=== PATIENT | female | born 2000 | race Two or more races ===

== ENCOUNTER 2025-09-05 10:51 | Outpatient (REF) | payer MEDICAID, SELFPAY ==
--- OUTSIDE RECORDS SUMMARY | 2025-09-05 09:00 | XMS_ITS | Encounter Summary ---
Author Organization [employer] Address [address] [facility] 7 [place] [address] Care Team Providers Care Web Database Developer Name Role Phone Maite Gorman CNP Primary Care Provider [phone] Reason for Referral * Consultation (Routine) - Pending Review Specialty Diagnoses / Procedures Referred By Mikaela stout Referred To Contact Allergy Diagnoses Encounter for allergy testing Maite Gorman CNP [address] [place] [address] Phone: tel: fax: Referral ID Status Reason Start Date Expiration Date Visits Requested Visits Authorized [id number] Pending Review Specialty Services Required 09/05/2026 1 1 Encounter Details Date Type Department Care Team (Late st Contact Info) Description 09/05/2025 9:00 AM EST Office Visit [facility] MED [facility] PEDS [address] [place] [address] Maite Gorman CNP [address] [place] [address] Encounter to establish care with new provider (Primary Dx); Class 1 obesity; Breast pain; Encounter for allergy testing Social History Tobacco Use Types Packs/Day Years Used Date Smoking Tobacco: Never Smokeless Tobacco: Never Tobacco Cessation:Counseling Given: Not Answered Depression Answer Date Recorded Patient Health Questionnaire-9 Score 2 09/05/2025 Patient Health Questionnaire-9 Score 2 09/05/2025 Last PHQ-9: Questionnaire Data Not on file 1 11/05/2024 Housing Stability Answer Date Recorded What is your housing situation today? I have frank maldonado 08/28/[address] you li ve. Do you have problems with any of the following? None of the above 08/28/2025 Food Insecurity Answer Date Recorded Within the past 12 months, y ou worried that your food would run out before you got money to buy more: Never True 08/28/2025 Within the past 12 months,th e food you bought just didn't last and you didn't have enough money to get more: Never True Transportation Answer Date Recorded In the past 12 months, has l ack of transportation kept you from medical appts, meetings, work or from getting things needed for daily living? No 08/28/2025 Utilities Answer Date Recorded In the past 12 months, has t he electric, gas, oil or water company threatened to shut off services in your home? No 08/28/2025 Depression Answer Date Recorded Patient Health Questionnaire-2 Score 1 09/05/2025 Internet Access Answer Date Recorded Internet Access Q1 Yes 08/28/2025 Internet Access Q2 Not on file 08/28/2025 Comments No Sex and Gender Information Value Date Recorded Sex Assigned at Female 08/10/2022 10:16 AM EDT Legal Sex Female 10:16 AM EDT Gender Identity Female 08/10/2022 10:16 AM EDT Sexual Orientation Straight 08/10/2022 10 :16 AM EDT documented as of this encounter Last Filed Vital Signs Vital Sign Reading Time Taken Comments Blood Pressure 126/72 09/05/2025 9:44 AM EST Pulse 80 09/05/2025 9:44 AM EST Temperature 36.7 C (98 F) 09/05/2025 9:44 AM EST Respiratory Rate 16 09/05/2025 9:44 AM EST Oxygen Saturation 98% 09/05/2025 9:44 AM EST Inhaled Oxygen Concentration - - Weight 78 kg (172 lb) 09/05/2025 9:44 AM EST Height 153.7 cm (5' 0.5 ) 09/05/2025 9:44 AM EST Body Mass Index 33.04 09/05/2025 9:44 AM EST documented in this encounter Functional Status * Over the past 2 weeks, how often have you been bothered by any of the following problems? Question Answer Date of Assessment Author Patient Health Questionnaire -2 Score 1 09/05/2025 10:36 AM Sa alec Buckley [place] * Little interest or pleasure in doing things Answer Date of Assessment Author Not at all 09/05/2025 10:36 AM Venita Ochoa MA * Feeling down, depressed, or hopeless Answer Date of Assessment Author Several days 09/05/2025 10:36 AM Venita Ochoa MA * Trouble falling or staying asleep, or sleeping too much Answer Date of Assessment Author Not at all 09/05/2025 10:36 AM Venita Ochoa MA * Feeling tired or having little energy Answer Date of Assessment Author Not at all 09/05/2025 10:36 AM Venita Ochoa MA * Poor appetite or overeating Answer Date of Assessment Author Not at all 09/05/2025 10:36 AM Venita Ochoa MA * Feeling bad about yourself - or that you are a failure or have let yourself or your family down Answer Date of Assessment Author Several days 09/05/2025 10:36 AM Venita Ochoa MA * Trouble concentrating on things, such as reading the newspaper or watching television Answer Date of Assessment Author Not at all 09/05/2025 10:36 AM Venita Ochoa MA * Moving or speaking so slowly that other people could have noticed? Or the opposite - being so fidgety or restless that you have been moving around a lot more than usual. Answer Date of Assessment Author Not at all 09/05/2025 10:36 AM Venita Ochoa MA * Thoughts that you would be better off or hurting yourself in some way Answer Date of Assessment Author Not at all 09/05/2025 10:36 AM Venita Ochoa MA * Patient Health Questionnaire-9 Score Answer Date of Assessment Author 2 09/05/2025 10:36 AM Venita Ochoa MA * Over the last 2 weeks, how often have you been bothered by any of the following problems? Question Answer Date of Assessment Author Feeling nervous, anxious, or on edge 0 09/05/2025 10:37 AM EST Sa alec Beck MA Not being able to stop or control worrying 0 09/05/2025 10:37 AM EST Sa alec Beck MA Worrying too much about different things 1 09/05/2025 10:37 AM Sa alec Buckley MA Trouble relaxing 1 09/05/2025 10:37 AM Venita Buckley MA Being so restless that it is hard to sit still 0 09/05/2025 10:37 AM EST Sa alec Beck MA Becoming easily annoyed or irritable 0 09/05/2025 10:37 AM EST Sa alec Beck MA Feeling afraid as if somethi ng awful might happen 1 09/05/2025 10:37 AM Sa alec Buckley MA CANDACE-7 Total Score 3 09/05/2025 10:37 AM Venita Buckley MA documented as of this encounter Progress Notes * Maite Gorman CNP - 09/05/2025 9:00 AM EST Subjective: Rita Le is a 25 y.o. female with PMH of Obesity who presents to the office for a new patient visit. Previous PCP unknown. Interim history: Pt had uncomplicated with history of chlamydia during 03/2025- resolved, she was[facility] at [facility] transferred from [facility] for PPROM 08/12/25 at 33.6 weeks gestation. Per provider note plan was to proceed with expectant management until 34+ weeks gestation as long as maternaland status remain reassuring. Pt then gave vaginally and was dicharged home with s/o, baby to remain in NICU as of 08/16/25. Reports she is doing well, baby is back home and is healthy. She has PP f/u scheduled in 2 weeks [facility]. Current concerns: Plugged milk ducts in L axillary region. Reports they are tender. Reports milk production is adequate at this time, reports less breast milk production in L breast. Would like allergy testing. Problem List[1] Surgical History[2] Family History[3] Social History Living situation: has secure housing Employment/Education: not reported Diet/exercise: Substance use: denies Sexual activity: not at this time Contraception: none Mental health: Denies any mental health concerns including signs/symptoms of depression and anxiety. No LMP recorded. (Menstrual status: Other). Allergies[4] Review of Systems Vitals: 09/05/25 0944 BP: 126/72 BP Location: Left arm Patient Position: Sitting BP Cuff Size: Adult Pulse: 80 Resp: 16 Temp: 98 ??F (36.7 ??C) TempSrc: Oral SpO2: 98% Weight: 172 lb (78 kg) Height: 5' 0.5 (1.537 m) Physical Exam Constitutional: Appearance: Normal appearance. She is normal weight. Cardiovascular: Rate and Rhythm: Normal rate and regular rhythm. Pulses: Normal pulses. Heart sounds: Normal heart sounds. No murmur heard. No friction rub. No gallop. Pulmonary: Effort: Pulmonary effort is normal. No respiratory distress. Breath sounds: Normal breath sounds. No wheezing or rales. Chest: Breasts: Right: Normal. No swelling, bleeding, inverted nipple or mass. Left: Normal. No swelling, bleeding, inverted nipple or mass. Comments: 3 firm well circumscribed, mobile, tender nodules in L axillary region. Prominent nodule in the center of L axillary about 3-4cm in size, no surrounding erythema, no fluid collection, no swelling. Neurological: General: No focal deficit present. Mental Status: She is alert and oriented to person, place, and time. Psychiatric: Mood and Affect: Mood normal. Behavior: Behavior normal. Thought Content: Thought content normal. Judgment: Judgment normal. Assessment & Plan Encounter to establish care with new provider 25 y/o female without any chronic conditions presents today to establish care. We addressed medical history and current medications. Routine Screening and Health Maintenance Optometry: Yes Dentist: Yes Lab Review: orders written for new lab studies as appropriate; see orders Routine Cancer Screening Cervical CA: Completed 03/2025- NILM Orders: CBC auto differential Basic Metabolic Panel Hepatic Function Panel Class 1 obesity Pt has strong family history of T2DM I will include A1c level in blood work. Dietary Recommendations: Fruits, vegetables, whole grains, protein foods, and fat-free or low-fat dairy products are healthychoices. Eat different types of protein foods in your diet. This can include seafood, lean meats, poultry, beans, peas, lentils, nuts, seeds, soy products, and eggs. Limit foods and beverages higher in added sugars, saturated fat, and sodium. Exercise Recommendations: At least 150 minutes of moderate-intensity physical activity per week, or an equivalent combinationof moderate- and vigorous-intensity activity Orders: CBC auto differential Basic Metabolic Panel Hepatic Function Panel Hemoglobin A1c; Future Breast pain Base on presentation and history, likely plugged milk ducts Management typically involves measures to improve milk drainage, such as frequent , breast massage, and manual expression. If symptoms persist or a mass remains after treatment, further evaluation is warranted to rule out other causes, including infection or malignancy Will f/u with pt in 2 weeks or sooner based on progression of symptoms. Orders: ibuprofen 600 MG tablet; Take 1 tablet (600 mg) by mouth every 8 (eight) hours if needed for mild pain for up to 10 days. Encounter for allergy testing Referred to allergy for patch testing Orders: Referral to Allergy; Future Current Medications[5] Immunization History Administered Date(s) Administered DTaP 2001, 2001, 2001, 01/09/2002, 09/10/2005 HPV, Quadrivalent 11/21/2010, 02/06/2011, 11/17/2011 Hep A, ped/adol, 2 dose 01/29/2015 Hep B, Adolescent or Pediatric 2001, 2001, 01/13/2002 Hib (HbOC) 2001, 2001, 01/13/2002 IPV 2001, 2001, 04/10/2002, 09/10/2005 Influenza, Split (incl. purified surface antigen) 11/14/2012 MMR 06/30/2002, 09/10/2005, 08/16/2025 Meningococcal MCV4P [id number]-135 11/14/2012 Pneumococcal Conjugate PCV 7 2001, 2001, 01/13/2002 Tdap 11/14/2012, 07/11/2025 Varicella 06/30/2002, 01/23/2014 Follow up in about 2 weeks (around 09/19/2025) for f/u armpit mass. [1] Patient Active Problem List Diagnosis Acne Back pain Chlamydia infection during Class 1 obesity Elevated glucose tolerance test Encounter for supervision of normal first in first trimester premature rupture of membranes (PPROM) with unknown onset of labor PROM (premature rupture of membranes) Rubella non-immune status, antepartum Urinary tract infection in mother during first trimester of [2] Past Surgical History: Procedure Laterality Date BREAST RECONSTRUCTION 2020 [3] Family History Problem Relation Name Age of Onset Diabetes Father [4] No Known Allergies [5] Current Outpatient Medications Medication Sig Dispense Refill acetaminophen (Tylenol) 500 MG tablet TAKE 2 TABLETS BY MOUTH EVERY 6 HOURS FOR PAIN aspirin 81 MG EC tablet Take 81 mg by mouth Once per day. docusate sodium (Colace) 100 MG capsule Take 100 mg by mouth. ergocalciferol (Vitamin D-2) 1.25 MG (16528 UT) capsule take 1 capsule by oral route every week x 15 weeks Ferrous Sulfate (IRON PO) Take 1 tablet by mouth Once per day. ibuprofen 800 MG tablet Take 800 mg by mouth. multivitamin () 27-0.8 MG tablet Take 1 tablet by mouth Once per day. ibuprofen 600 MG tablet Take 1 tablet (600 mg) by mouth every 8 (eight) hours if needed for mild pain for up to 10 days. 30 tablet 0 No current facility-administered medications for this visit. documented in this encounter Miscellaneous Notes * Assessment & Plan Note - Maite Gorman CNP - 09/05/2025 9:00 AM EST Associated Problem(s): Class 1 obesity Pt has strong family history of T2DM I will include A1c level in blood work. Dietary Recommendations: Fruits, vegetables, whole grains, protein foods, and fat-free or low-fat dairy products are healthychoices. Eat different types of protein foods in your diet. This can include seafood, lean meats, poultry, beans, peas, lentils, nuts, seeds, soy products, and eggs. Limit foods and beverages higher in added sugars, saturated fat, and sodium. Exercise Recommendations: At least 150 minutes of moderate-intensity physical activity per week, or an equivalent combinationof moderate- and vigorous-intensity activity Orders: CBC auto differential Basic Metabolic Panel Hepatic Function Panel Hemoglobin A1c; Future documented in this encounter Plan of Treatment Upcoming Encounters Date Type Department Care Team (Late st Contact Info) Description 09/26/2025 2:30 PM EST Office Visit [facility] MED & PEDS [address] [place] [address] Maite Gorman CNP [address] [place] [address] Scheduled Orders Name Type Priority Associated Diagnoses Orde r Schedule CBC auto differential Lab Routine Encounter to establish care with new provider Class 1 obesity Ordered: 09/05/2025 Basic Metabolic Panel Lab Routine Encounter to establish care with new provider Class 1 obesity Ordered: 09/05/2025 Hepatic Function Panel Lab Routine Encounter to establish care with new provider Class 1 obesity Ordered: 09/05/2025 Hemoglobin A1c Lab Routine Class 1 obesity Expected: 09/05/2025 (Approximate), Expires: 09/05/2026 Scheduled Referrals Name Type Priority Associated Diagnoses Orde r Schedule Referral to Allergy Outpatient Referral Routine Encounter for allergy testing Expected: 09/05/2025 (Approximate), Expires: 09/05/2026 documented as of this encounter Visit Diagnoses Diagnosis Encounter to establish care with new provider- Primary Class 1 obesity Breast pain Mastodynia Encounter for allergy testing Diagnostic skin and sensitization tests documented in this encounter Additional Health Concerns Assessment Noted Time PHQ-9 Depression Total Score: 2 09/05/20 10:36 AM EST documented as of this encounter Care Teams Web Database Developer Relationship Specialty Start Date End Date Maite Gorman CNP [address] [place] [address] PCP - General Family Medicine 09/05/25 documented as of this encounter
--- OUTSIDE RECORDS SUMMARY | 2025-09-05 13:20 | XMS_ITS | Encounter Summary ---
Author Organization [employer] Address [address] [place] [address] [address] [address] Care Team Providers Care It Applications Manager Name Role Phone Anabela Aguirre MD Primary Care Provider [phone] Maite Gorman CNP Primary Care Provider [phone] Encounter Details Date Type Department Care Team (Late Contact Info) Description 12/16/2022 Telephone Family Medicine [address] [place] [address] Anabela Aguirre MD [address] [place] [address] Social History Tobacco Use Types Packs/Day Years Used Date Smoking Tobacco: Never Assessed Comments Unknown Sex and Gender Information Value Date Recorded Sex Assigned at Female 08/10/2022 10:16 AM EDT Legal Sex Female 10:16 AM EDT Gender Identity Female 08/10/2022 10:16 AM EDT Sexual Orientation Straight 08/10/2022 10 :16 AM EDT documented as of this encounter Plan of Treatment Upcoming Encounters Date Type Department Care Team (Late Contact Info) Description 09/26/2025 2:30 PM EST Office Visit [facility] MED & PEDS [address] [place] [address] Maite Gorman CNP [address] [place] [address] documented as of this encounter Visit Diagnoses Not on filedocumented in this encounter Care Teams It Applications Manager Relationship Specialty Start Date End Date Anabela Aguirre MD [address] [place] [address] PCP - General Family Medicine 10/11/18 06/19/24 Maite Gorman CNP [address] [place] [id number] PCP - General Family Medicine 09/05/25 documented as of this encounter
--- OUTSIDE RECORDS SUMMARY | 2025-09-05 13:20 | XMS_ITS | Encounter Summary ---
Author Organization [employer] Address [address] [place] [address] [address] [place] [address] Care Team Providers Care Nurse Infection Control Name Role Phone Anabela Aguirre MD Primary Care Provider [phone] Maite Gorman CNP Primary Care Provider [phone] Reason for Visit * Reason Onset Date Comments Appointment Request 11/26/2023 Encounter Details Date Type Department Care Team ([facility] Contact Info) Description 11/26/2023 Telephone [facility] [address] [place], [place] [phone] Anabela Aguirre MD [address] [place], [place] [phone] Appointment Request Social History Tobacco Use Types Packs/Day Years Used Date Smoking Tobacco: Never Assessed Comments Unknown Sex and Gender Information Value Date Recorded Sex Assigned at Female 08/10/2022 10:16 AM EDT Legal Sex Female 10:16 AM EDT Gender Identity Female 08/10/2022 10:16 AM EDT Sexual Orientation Straight 08/10/2022 10 :16 AM EDT documented as of this encounter Miscellaneous Notes * Telephone Encounter - Elver Vergara - 11/26/2023 8:29 AM EST Tc from patient calling to schedule a PE appt with PCP however there was no availability at the moment documented in this encounter Plan of Treatment Upcoming Encounters Date Type Department Care Team ([facility] Contact Info) Description 09/26/2025 2:30 PM EST Office [facility] [address] [place], [place] [phone] Maite Gorman CNP [address] [place] [address] documented as of this encounter Visit Diagnoses Not on filedocumented in this encounter Care Teams Nurse Infection Control Relationship Specialty Start Date End Date Anabela Aguirre MD [address] [place] [address] PCP - General Family Medicine 10/11/18 06/19/24 Maite Gorman CNP [address] [place] [address] PCP - General Family Medicine 09/05/25 documented as of this encounter
--- OUTSIDE RECORDS SUMMARY | 2025-09-05 13:21 | XMS_ITS | Clinical Summary ---
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 30 tablet 6 02/28/2025 Active vitamin iron fum-folic acid 27-0.8 mg per tablet Take 1 tablet by mouth 1 (one) time each day. 90 tablet 3 05/31/2025 05/31/20 26 Active acetaminophen (TYLENOL) 500 mg tablet TAKE 2 TABLETS BY MOUTH EVERY 6 HOURS FOR PAIN 07/15/2025 Active Active Problems Problem Noted Date Diagnosed Date PROM (premature rupture of membranes) 08/12/2025 Elevated glucose tolerance test 07/04/2025 Overview (07/04/2025): Normal 3hr Chlamydia infection during 05/09/2025 Overview (08/12/2025): 03/14/2025- Positive Chlamydia at IP- pt and partner completed treatment WILLAM 04/12/2025- Negative Repeat at 36 weeks- completed today with PPROM Rubella non-immune status, antepartum 03/06/2025 Overview (03/06/2025): Vaccinate PP Urinary tract infection in m other during first trimester of 03/06/2025 Overview (06/13/2025): 03/06/2025 E coli UTI- treated Macrobid 05/09- WILLAM ordered- no growth Encounter for supervision of normal first in first trimester 02/28/2025 Overview (07/11/2025): 1. [place] site: [facility] ([facility]): [address] [place] [phone] ([phone]) 2. Delivery site: [facility] 3. Mobile Mommas: 4. Dating criteria: LMP 5. Blood type: A+ 6. Genetic screening: Date: Result: Panorama: Ordered low risk male Horizon: Ordered neg Nuchal: WNL Survey: WNL MSAFP: Neg 6. GBS: Date: 7. FOB name: Keila Mcfarland 02-03-1999, 8. Plans A. Epidural or other pain management - B. Labor support identified - C. Tdap - Date: 07/11 Flu - Date: D. Breast or Bottle feed: E. Baby's name - F. Circumcision - 9. Hospital Course: Resolved Problems Problem Noted Date Diagnosed Date Resolved Date Vaginal bleeding in pregnanc y, third trimester 08/12/2025 08/12/2025 Overview (08/12/2025): 07/15- Light vaginal spotting with whipping at 29.6 weeks, pt called triage and US order was placed. U/S- 07/17- Placenta not low lying or previa. Bleeding stopped the next day and denies re-occurring. Back pain 02/15/2025 02/28/2025 Encounters Date Type Department Care Team Description 08/15/2025 Telephone Obstetrics and Gynecology - [address] [phone] Wendy Brown RN 08/12/2025 8:16 AM EST - 08/12/2025 10:37 AM EST Hospital Encounter [facility] - Maternity [address] [place] [address] Shahid Davidson MD Discharge Disposition: Another Health Care Institution Not Defined 08/08/2025 1:00 PM EDT Routine Obstetrics & Gynecology [address] [phone] Kat Albright CNM Encounter for supervision of normal first in third trimester (Primary Dx); 33 weeks gestation of 07/26/2025 [address] [phone] Regina Whyte CNM 07/25/2025 1:15 PM EDT Routine Obstetrics & Gynecology [address] [address] Kat Albright CNM Encounter for supervision of normal first in third trimester (Primary Dx); Bilateral sciatica; 31 weeks gestation of 07/18/2025 Results Follow-Up [address] [phone] Latoya Ni CNM 07/17/2025 11:00 AM EDT Ancillary Procedure Maternal Medicine - [address] [phone] Vaginal bleeding in , third trimester; 30 weeks gestation of ; Obesity complicating in third trimester 07/17/2025 [address] [phone] Regina Whyte CNM 07/15/[address] [phone] Latoya Ni CNM 07/11/2025 1:00 PM EDT Routine Obstetrics & [address] [phone] Kat Albright CNM Encounter for supervision of normal first in third trimester (Primary Dx); Acute right-sided low back pain with right-sided sciatica; 29 weeks gestation of 06/13/2025 1:45 PM EDT Routine Obstetrics & Gynecology - [address] [address] Kat Albright CNM Encounter for supervision of normal first in second trimester (Primary Dx); Encounter for screening, unspecified; Screen for STD (sexually transmitted disease); 25 weeks gestation of from Last 3 Months Immunizations Immunization Administration Dates Next Due Tdap Tetanus diptheria acell ular pertussis (Boostrix; Adacel) 7yo and older 07/11/2025 07/11/2035 Surgical History Surgery Date Site/Laterality Comments BREAST REDUCTION 01/09/2021 Medical History Medical History Date Comments Childhood asthma Family History Medical History Relation Name Comments Diabetes Father Autism Half-Brother 1 x1 maternal half brother No Known Problems Half-Brother 2 x2 2 patern al half brothers No Known Problems Half-Brother 3 x1 maternal half brother No Known Problems Half-Sister x2 Thyroid disease Mother Relation Name Status Comments Father Alive Half-Brother 1 x1 Alive Half-Brother 2 x2 Alive Half-Brother 3 x1 Alive Half-Sister x2 Alive Maternal Grandfather Alive Maternal Grandmother Alive Mother Alive Paternal Grandfather Alive Paternal Grandmother Alive Social History Tobacco Use Types Packs/Day Years Used Date Smoking Tobacco: Never Smokeless Tobacco: Never Tobacco Cessation:Counseling Given: Not Answered Alcohol Use Standard Drinks/Week Comments Not Currently 0 (1 standard drink = 0.6 oz pur e alcohol) Comments No Sex and Gender Information Value Date Recorded Sex Assigned at Not on file Legal Sex Female 12:15 AM EST Gender Identity Not on file Sexual Orientation Not on file Occupation Industry Job Start Date Job End Date [employer] Not on file Not on file Not on file Obstetrics History Para Term AB IAB SAB Ectopic Multiple Livin g Live Births 1 1 0 1 0 0 1 1 Date Outcome GA Total Labor Labor/2nd/3rd Weight Sex Type Anes PTL Patsy A1 A5 Name Clin 025 34w 1d 2732 g (96.4 oz) M Y Living Delivery Location:[facility] Summary Episode Dates Number of Fetuses Estimated Date of Delivery 02/28/2025 - Present (09/05/2025) 1 09/24/2025 (set by Bhavna Alvarez RN on 02/28/2025 based on Last Menstrual Period on 12/18/2024 (Within Days)) Dating Summary Based On MAXIMILIANO GA Diff Last Menstrual Period on 12/18/2024 (Within Days ) 09/24/2025 Working Ultrasound on 02/23/2025 09/27/2025 -3d GA:9w1d Alternate MAXIMILIANO Entry 09/24/2025 Same Comment:Date entered prior t o episode creation Vitals Pregravid Weight Height TWG (As of 09/05/2025) Pregrav id BMI 72.1 kg (159 lb) 1.575 m (62 ) 11.5 kg (25 lb 6.4 oz) 29.07 Date GA Fund Present FHR Mvmt BP Weight Edema Alb Glu Ket Dil/ Eff/Sta 33w6d Inpatient data not displayed here. See encounter summary. Notes Progress Notes - Hospital En counter - 08/12/2025 - GA:33w6d 08/12/2025 - 33w6d - Kat Albright CNM Obstetrical Triage Note Subjective History of Present Maddie Alcazar is a 25 y.o. gravid, female. Patient's last menstrual period was 12/18/2024 (within days). with an Estimated Date of Delivery of 09/24/2025, by Ultrasound, who is now 33w6d gestation. The patient's blood type is A Positive. She presented to the [facility] triage accompanied by her partner, complaining of feeling a large gush of clear fluid around 0700am. She denies odor. Fluid has continued to leak since. She denies fever or chills. She denies CP, SOB, ESCOBAR, visual changes. Denies drugs, alcohol or smoking. She reports good movement, no vaginal bleeding or contractions. Taking PNV and baby ASA. Her is complicated by UTI in early preg, rubella non immune, elevated GTT with a normal 3hr GTT, and Chlamydia in early with a negative WILLAM and light vaginal bleeding at 29.6 weeks- placenta not low lying or previa. ROS- Per HPI Reason for Triage Observation: Rupture of Membranes Triage Course: Came in to triage, SSE- exam completed and cultures obtained to rule out infections and assessment of PPROM Objective Recent Vital Signs: BP 131/83 Pulse 109 Temp 36.1 C (97 F) (Temporal) Resp 16 BP & Temp Min/Max Last 24 Hours: BP Min: 131/83 Min taken time: 08/12/25819 Max: 131/83 Max taken time: 08/12/25819 Temp Av.1 C (97 F) Min: 36.1 C (97 F) Min taken time: 08/12/25819 Max: 36.1 C (97 F) Max taken time: 08/12/25819 Physical Examination: GENERAL: Examination reveals a well developed, well nourished, gravid female in no acute distress. She is alert and cooperative. LUNGS: clear to auscultation bilaterally HEART: regular rate and rhythm, S1, S2 normal, no murmur, click, rub or gallop ABDOMEN: soft, gravid, nontender, nondistended, no abnormal masses, no epigastric pain FHR is 150, Mod variability with +Accels, and no Decels, a Cat 1 tracing. VAGINA: normal appearing vagina with normal color and no lesions noted. Positive for Lg amount Pooling of clear fluid- no odor, Positive Nitrazine and Positive Ferning CERVIX: Closed cm dilated, 70 % effaced, -3 station, Cephalic by Vishal's MEMBRANES are ruptured. Contractions 3/10 minutes per toco- none felt by pt EXTREMITIES: no redness or tenderness in the calves or thighs, no edema SKIN: normal coloration and turgor, no rashes NEUROLOGICAL: alert, oriented, normal speech, no focal findings or movement disorder noted PSYCHOLOGICAL: awake and alert; oriented to person, place, and time Lab Review: Labs in chart were reviewed. Bedside US performed by - Cephalic presentation confirmed, LENCHO- 15 Assessment at 33.6 weeks gestation, reassuring maternal and status Triage Testing revealed- positive PPROM Category 1 tracing History of Chlamydia in Plan Reviewed findings with pt of PPROM and need to transfer to tertiary hospital Cultures obtained to rule out infections, per protocol Reviewed risk of delivery and lung maturity Betamethasone 12mg IM x1 dose given at Triage- reviewed R/B with pt Ampicillin and Azythromycin started per protocol Will continue to monitor, IV Fluids started Consulted with Dr. Carbajal- Transfer process started to [facility] Kat Albright CNM I reviewed patients record and assisted with her evaluation. I agree with the above note. Patient is being transferred to [facility]. I greatly appreciate [facility] and Dr Casey for accepting the transfer and assuming care of Ms Alcazar. --Pending work up from today, GCCT and GBS. --CBC and Type of screen not completed given patient is being transferred Shahid Davidson MD Progress Notes - Routine Pre tree - 08/08/2025 - GA:33w2d 08/08/2025 - 33w2d - Kat Albright CNM OB Visit: Vitals BP: 122/77 (P 86) Weight: 83.6 kg (184 lb 6.4 oz) Assessment Heart Rate: 155 Fundal Height (cm): 33 cm Movement: Present Presentation: Cephalic Vaginal Drainage Leaking Fluid: No 25 y.o. old female at 33w2d. Doing well. Taking PNV and ASA. Appropriate FM. No LOF/VB/cramping. Her only new concern is none. 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 Also has to drive far to get to work. She has preg cradle that helps some and awaiting for chiropractor appt. Comfort meadures reviewed and FMLA papers given. She spoke to and states was told this should not interfere with her time with baby bonding after delivery. Otherwise healthy . Her BP is reviewed and is Normal. Signs and symptoms of labor reviewed including reasons to call triage. The patient does not require anesthesia consult. Problem List reviewed and updated. RTO 2 weeks. Kat Albright CNM on 08/08/2025 at 1:40 PM EDT 08/08/2025 - 33w2d - Baron Son MA Ob f/up Progress Notes - Routine Pre - 07/25/2025 - GA:31w2d 07/25/2025 - 31w2d - Kat Albright CNM OB Visit: Vitals BP: 129/81 (P 109) Weight: 82.7 kg (182 lb 4.8 oz) Assessment Heart Rate: 150 Fundal Height (cm): 32 cm Movement: Present Presentation: Cephalic Vaginal Drainage Leaking Fluid: No 25 y.o. old female at 31w2d. Doing well. Appropriate FM. No LOF/VB/cramping. Had light spotting with whipping 1 week ago, she had an US to verify location of placenta- placenta not low lying or previa. Bleeding stopped the next day and has not re-occured. Growth US was also done on 07/17 baby was 67%tile and normal fluid. Taking PNV and ASA. Her only new concern is sciatica pain, has preg craddle- helping some. Comfort measures reviewed and chiropractor referral offered and accepted. Thinking about getting FMLA to leave early for this reason, encouraged to educate on allowed time because this may shorten her time with baby. Otherwise healthy . She had 28 week labs, reviewed with pt today, 1hr GTT elevated, normal 3hr GTT. Her BP is reviewed and is Normal. Signs and symptoms of labor reviewed including reasons to call triage. The patient does not require anesthesia consult. Problem List reviewed and updated. RTO 2 weeks. Kat Albright CNM on 07/25/2025 at 1:53 PM EDT 07/25/2025 - 31w2d - Baron Son MA Ob f/up Progress Notes - Routine Pre - 07/11/2025 - GA:29w2d 07/11/2025 - 2d - Baron Son [place] The patient acknowledges that they will be receiving the Tdap (Brand Name Boostrix or Adacel) (Tetanus/Diptheria/Pertussis) vaccine: YES Immunization tab reviewed: It has been at least 9 years since last Tdap vaccine administration. If less than 9 years, provider notified. YES Exception: patients should receive a Tdap with each , preferably during the 3rd trimester. Denies allergy or reaction to previous Tetanus, Diptheria or pertussis vaccination: YES Denies history of Guillain [place] Syndrome.or any type of seizure disorder. YES Patient made aware that they may experience pain/swelling at the site after receiving a Tetanus or Diptheria vaccine. YES Acknowledges reviewing the VIS dated 05/16/2021 (copy made available): YES Denies moderate or severe illness or fever of >100 degrees F: YES Patient agrees to wait in the office for 20 minutes after receiving the injection: YES Tdap vaccine administered IM. See Imm/Inj tab 07/11/2025 - w2d - Kat Albright CNM OB Visit: Vitals BP: 121/77 (p 78) Weight: 81.6 kg (179 lb 14.4 oz) Assessment Heart Rate: 150 Fundal Height (cm): 29 cm Movement: Present Vaginal Drainage Leaking Fluid: No 25 y.o. old female at 29w2d. Doing well. Appropriate FM. No LOF/VB/contractions. Taking PNV and ASA. Her only new concern is right low back/hip pain- radiates down leg, worst with movements- comfort measures reviewed, hydration, stretching, and preg craddle Rx given. Call if no improvement. Otherwise healthy . Her BP is reviewed and is Normal. Tdap was offered and accepted. This patient has not received Tdap during this . TDAP given today. 28 week labs reviewed, elevated 1hr GTT, normal 3hr GTT. This patient has received syphilis testing during this . This patient does not require a urine drug screen. Desires Tubal: NA. Signs and symptoms of labor reviewed including reasons to call triage. Problem List reviewed and updated. RTO 2 weeks. Kat Albright CNM on 07/11/2025 at 1:49 PM EDT 07/11/2025 - 29w2d - Baron Son [place] Pt here for ob f/up 1hr gtt done 06/25/25: 153 3hr gtt done 07/03/25: normal EPDS: 8 Routine from 07/11/2025 in Obstetrics & Gynecology [facility] with Kat Albright CNM 07/11/2025 1311 Last Filed Value [place] Depression Scale: In the Past 7 Days I have been able to laugh and see the funny side of things. As much as I always could As much as I always could I have looked forward with enjoyment to things. As much as I ever did As much as I ever did I have blamed myself unnecessarily when things went wrong. Yes, some of the time Yes, some of the time I have been anxious or worried for no good reason. Yes, sometimes Yes, sometimes I have felt scared or panicky for no good reason. No, not much No, not much Things have been getting on top of me. No, most of the time I have coped quite well No, most of the time I have coped quite well I have been so unhappy that I have had difficulty sleeping. Not at all Not at all I have felt sad or miserable. Not very often Not very often I have been so unhappy that I have been crying. Only occasionally Only occasionally The thought of harming myself has occurred to me. Never Never [place] Depression Scale Total 8 8 Progress Notes - Routine Pre - 06/13/2025 - GA:25w2d 06/13/2025 - - Kat Albright CNM OB Visit: Vitals BP: 125/78 (p 106) Weight: 80.5 kg (177 lb 6.4 oz) Assessment Heart Rate: 145 Fundal Height (cm): 25 cm Movement: Present Vaginal Drainage Leaking Fluid: No 24 y.o. old female at 25w2d. Doing well. Good FM. No LOF/VB/cramping. Her only new concern is None. Taking PNV and ASA. Normal recent FAS. Otherwise healthy . Her BP is reviewed and is Normal. She does not require a urine drug screen. 28 week labs ordered. Signs and symptoms of labor reviewed including reasons to call triage. Problem List reviewed and updated. RTO 4 weeks. Patient is planning to breast feed. Benefits of breast feeding were discussed at this visit. Kat Albright CNM on 06/13/2025 at 2:42 PM EDT 06/13/2025 - - Baron Son MA Ob f/up Progress Notes - Routine Pre tree - 05/09/2025 - GA:20w2d 05/09/2025 - - Kat Albright CNM OB Visit: Vitals BP: 94/56 (p 96) Weight: 76.3 kg (168 lb 3.2 oz) Assessment Heart Rate: 150 Fundal Height (cm): 20 cm Movement: Present Vaginal Drainage Leaking Fluid: No 24 y.o. old female at 20w2d. Doing well. Pos FM. No LOF/VB/cramping. Her only new concern is none. Taking PNV and ASA. Otherwise healthy . Her BP is reviewed and is Normal. Aneuploidy screening reviewed; it is Normal. MSAFP up to date and normal. She has FAS today. She finished Abx for UTI, will do WILLAM today. She does not require a urine drug screen. Signs and symptoms of labor reviewed including reasons to call triage. Problem List reviewed and updated. RTO 4 weeks. Kat Albright CNM on 05/09/2025 at 11:00 AM EDT 05/09/2025 - w2d Baron Rutherford MA Ob f/up Progress Notes - Routine Pre - 04/12/2025 - GA:16w3d 04/12/2025 - wdinesh - Riana Figueroa CNM OB Visit: Vitals BP: 109/79 (P 68) Weight: 74.1 kg (163 lb 6.4 oz) Assessment Heart Rate: 150 Fundal Height (cm): 16 cm Movement: Present Vaginal Drainage Leaking Fluid: No 24 y.o. old female at 16w3d. Doing well. + fluttering FM. No LOF/VB/cramping. Her only new concern is none. She and partner completed tx for Chlamydia. She admits to having sex w/o condom since treatment. Otherwise healthy . Her BP is reviewed and is Normal. Aneuploidy screening reviewed; it is Normal. MSAFP ordered. She does not require a urine drug screen. Rev'd normal second trimester changes, comfort measures including reasons to call triage. Problem List reviewed and updated. RTO 4 wks or sooner prn,. Orders Placed This Encounter Procedures Chlamydia trachomatis and Neisseria gonorrhoeae molecular study Alpha fetoprotein, maternal Riana iFgueroa CNM on 04/12/2025 at 9:17 AM EDT 04/12/2025 - 16josé antonio - Baron Son MA Ob f/up w/ WILLAM Pos Ch on 03/14/25 Progress Notes - Initial Pre - 03/14/2025 - GA:12w2d 03/14/2025 - 12w2d - Riana Figueroa CNM OB 12 week appt IP: S: Maddie is a 24 y.o. year old here for IP visit with her patient and boyfriend. Her is unplanned. She and the father of the baby are surprised/ happy. Taking PNV. Patient's last menstrual period was 12/18/2024 (within days). She is uncertain of her LMP with regular cycles. is currently dated by LMP confirmed by 1st trimester ultrasound. She complains of nausea and breast tenderness. She denies vaginal bleeding or cramping. Flu vaccine: not indicated at today's visit Completed abx yesterday for E-coli UTI O: Blood pressure 111/72, weight 73.3 kg (161 lb 8 oz), last menstrual period 12/18/2024, not currently . See OB physical and labs. Vitals BP: 111/72 (P 87) Weight: 73.3 kg (161 lb 8 oz) No results found for: ABORH Lab Results Component Value Date RH Positive 03/02/2025 Horizon Neg Panorama low risk A: at 12w2d weeks gestation. 1. 12 weeks gestation of 2. Encounter for supervision of normal first in first trimester 3. Screening for cervical cancer 4. Screen for STD (sexually transmitted disease) 5. Screening for depression 6. Urinary tract infection in mother during first trimester of 7. Rubella non-immune status, antepartum P: Pap obtained today. Genprobe obtained today/ added to PAP collection Oriented to THoNE MG and anticipated course. Discussed collaborative practice and [facility] delivery. Reviewed healthy eating and normal weight gain in . Encouraged patient to push PO fluids. Counseled about warning signs of the first trimester and how to contact infection control preventionist provider. Discussed the benefits of breast feeding and strongly encouraged to consider this. Will try in setting of breast reduction Counseled regarding the diagnosis of anomalies. She was offered a referral to maternal medicine for nuchal lucency testing. She has appt for the referral. Repeat Urine culture next appt Vaccinate rubella RTO 4 weeks. The patient does not require anesthesia consult. This patient's VTE risk status is low. Riana Figueroa CNM on 03/14/2025 at 12:08 PM EDT 03/14/2025 - 12w2d - Baron Son MA Pt here for IP Needs Pap EPDS: Progress Notes - Clinical [place] pport - 02/28/2025 - GA:10w2d 02/28/2025 - 10w2d - Bhavna Mcnulty RN Maddie Alcazar is a 24 y.o. old female at 10w2d. This is [place]. The patient feels happy about the . The FOB is supportive and happy. Patient's last menstrual period was 12/18/2024. (Within days)., which would make her currently 10w2d with an Estimated Date of Delivery: 09/24/25. She is approximate within days of her date. An ultrasound has already been performed on 02-23-25, size is = to dates Patient has significant history of: No previous history of OB Past Medical History: Have you had or do you currently have: Diabetes? No Hypertension? No Heart disease, Mitral valve Prolapse, or Rheumatic fever? No An Autoimmune disease such as Lupus or Rheumatoid Arthritis? No Epilepsy, Seizures, or Spells? No Migraine Headaches? No Stroke or loss of function or sensation? No Additional Questions: Have you ever been treated for anxiety and/or depression? No Are you having problems with crying spells or loss of self-esteem? No Have you ever required psychiatric care? No Have you ever had hepatitis, liver disease or jaundice? No Have you ever been treated for blood clots in your veins, deep venous thrombosis, inflammation in the veins, thrombosis, phlebitis, pulmonary embolism or varicosities? No Have you had excessive bleeding after surgery or dental work? No Do you bleed more than other women after a cut or scratch? No Do you have a history of anemia? No Have you ever had Thyroid problems or taken Thyroid medications? No Do you have any other Endocrine Problems (ie. PCOS)? No Have you ever been in a major accident or suffered serious trauma? No Within the last year, has anyone hit, slapped, kicked or otherwise hurt you? No In the last year, has anyone forced you to have sex when you didn't want to? No Do you feel safe at home? Yes Have you ever received a blood transfusion? No Would you refuse a blood transfusion if a doctor judged to be medically necessary? No Would you rather than receive a blood transfusion? No If you answered yes to the above questions, is this for anglican reasons? N/A Do you know what your blood type is or if you are Rh Negative? unknown Have you ever had abnormal antibodies in your blood? no Have you ever had asthma? Yes childhood Have you every had Tuberculosis? No Have you ever had any breast problems? Large breast causing back pain Have you ever breast fed? N/A Have you ever had any gynecological surgical procedures such as cervical conization, LEEP procedure, Laser treatment, cryosurgery of the cervix or dilation and curettage, etc? No Have you had any other surgical procedures? Yes, 2020 breast reduction Have you ever been hospitalized overnight for a non-surgical reason excluding normal delivery? No Have you ever had anesthesia complications? No Have you ever had an abnormal pap smear? No Do you have a history of abnormalties of the uterus? No Did your mother take FERNANDEZ or any other hormones when she was with you? No Did it take more than one year to become ? No Have you ever been evaluated or treated for infertility? No Is there a history of medical problems in your family which you feel might adversely affect your health or ? Yes, strong family hx of diabetes Do you have any other problems we have not asked you about which you feel may be important for us to know for this ? No Do you currently have any of the following symptoms since your last menstrual period: Abdominal pain, blood in the stool or urine, chest pain, shortness of breath, coughing or vomiting up blood, your heart racing or skipping beats, nausea and/or vomiting, pain on urination, or vaginal discharge or vaginal bleeding? No Genetic Screening/Teratology Counseling- Includes patient, baby's father, or anyone in either family with: Patient's age 35 years or older as of estimated date of delivery No Thalassemia (Greenlandic, Jamaican, Mediterranean, or background): MCV less than 80 No Neural tube defect (Meningomyelocele, Spina bifida, or Anencephaly) No Congenital heart defect No Down syndrome No Karson-Sachs (Ashkenazi Religion, Cajun, Mozambican [place]) No Ilan disease (Ashkenazi Religion) No Familial dysautonomia (Ashkenazi Religion) No Sickle cell disease or trait () No Hemophilia or other blood disorders No Muscular dystrophy No Cystic fibrosis No Tressa's chorea No Intellectual disability and/or autism Yes, pts maternal half brother autistic If yes, was the person tested for Fragile X? N/A Other inherited genetic or chromosomal disorder No Maternal metabolic disorder (eg. Type 1 diabetes, PKU) No Patient or baby's father had child with defects not listed above No Recurrent loss, or a stillbirth No Medications (including supplements, vitamins, herbs, or OTC drugs)/illicit/recreational drugs/alcohol since last menstrual period Yes, pnv If yes, agent(s) and strength/dosage: Any other OB Infection History: Do you object to being tested for Hepatitis B? No Do you object to being tested for HIV? No Do you feel that you are at high risk for coming contact with the AIDS virus? No Have you ever been treated for tuberculosis? No Have you ever received the BCG vaccine? No Have you ever had a positive skin test for Tuberculosis? No Do you live with someone who has Tuberculosis? No Have you ever been exposed to Tuberculosis? No Do you have Genital Herpes? No Does your partner have Genital Herpes? No Have you had a rash or viral illness since your last period? No Have you ever had Gonorrhea, Chlamydia, Syphilis, Venereal Warts, Trichomoniasis, Pelvic Inflammatory Disease (PID) or any other sexually transmitted disease? No Do you know if you are a Group B Streptococcus Carrier? unknown Did you have the Chicken Pox/Varicella? no Were you vaccinated against Chicken Pox/Varicella? unknown Have you had any other infectious diseases? 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 Maddie Alcazar has also been made aware of the time sensitive nature for this testing to be completed. . The patient now has a gestational age of 10w2d. The patient has agreed that she does want nuchal lucency testing. Ethnicity Based Genetic Testing has been reviewed and the [facility] information sheet has been provided to the patient in their After Visit Summary. The patient was also advised that genetic testing may not be covered by all insurances. The patients states that they understand this information. The patient states that she has not had the genetic screening for Horizon 14 done in the past during a previous . Results were n/a. The patient has agreed that she does want genetic testing for Horizon 14 The following Labs have been ordered: Obstetric Panel, HIV with verbal Consent, Hepatitis C, Varicella titer, Urine Culture, UDS, Panorama with gender, and Horizon 14 panel She is aware that her insurance may or may not cover Panorama and/or Horizon 14 test and discussed meier only osman for test(s) - info given today in her after visit summary . She would like to proceed with testing. For Horizon Carrier Screening, if patient has [employer], [facility] or [employer] insurances: Not Applicable Electronically signed by: Bhavna Alvarez RN 02/28/25 3:03 PM EDT Last Filed Vital Signs Vital Sign Reading Time Taken Comments Blood Pressure 131/83 08/12/2025 8:20 AM EST Pulse 109 08/12/2025 8:20 AM EST Temperature 36.1 C (97 F) 08/12/2025 8:20 AM EST Respiratory Rate 16 08/12/2025 8:20 AM EST Oxygen Saturation 98% 08/12/2025 8:20 AM EST Inhaled Oxygen Concentration - - Weight 83.6 kg (184 lb 6.4 oz) 08/08/2025 1:06 P M EDT Height 157.5 cm (5' 2 ) 02/28/2025 2:43 PM EDT Body Mass Index 33.73 02/28/2025 2:43 PM EDT Plan of Treatment Upcoming Encounters Date Type Department Care Team (Late st Contact Info) Description 09/24/2025 1:30 PM EST Visit Obstetrics and Gynecology [address] [id number] Regina Whyte, RADM [address] [place] [address] Health Maintenance Due Date Last Done Comments HPV Vaccines (1 - 3-dose series) 2016 Hepatitis B Vaccines (1 of 3 - 19+ 3-dose series) 2020 Depression Screening 10/11/2024 Cholesterol Screening (Lipid Panel) 01/26/2025 Social Influencers of Health Screening 01/26/2025 COVID-19 Vaccine (1 - 2024-2 6 season) 2025 Influenza Vaccine (#1) 2025 Gonorrhea/Chlamydia Screening 08/12/2026, 04/12/2025, 03/14/2025 Cervical Cancer Screening: P ap Smear 03/14/2028 03/14/2025 DTaP,Tdap,and Td Vaccines (2 - Td or Tdap) 07/11/2035 07/11/2025 RSV Immunization Adult Patients (1 - 1-dose 75+ series) 2076 HIV Screening Completed 03/02/2025 Hepatitis C Screening Completed 03/02/2025 HIB Vaccines Aged Out No longer eligi ble based on patient's age to complete this topic Hepatitis A Vaccines Aged Out No long er eligible based on patient's age to complete this topic IPV Vaccines Aged Out No longer eligi ble based on patient's age to complete this topic MMR Vaccines Aged Out No longer eligi ble based on patient's age to complete this topic Meningococcal ACWY Vaccine Aged Out N o longer eligible based on patient's age to complete this topic Meningococcal B Vaccine Aged Out No l onger eligible based on patient's age to complete this topic Pneumococcal Vaccine: Pediatrics (0 to 5 Years) and At-Risk Patients (6 to 49 Years) Aged Out No longer eligible b ased on patient's age to complete this topic RSV Immunization Patients Under 20 months Aged Out No longer eligible b ased on patient's age to complete this topic Varicella Vaccines Aged Out No longer eligible based on patient's age to complete this topic Procedures Procedure Name Priority Date/Time Associated Diagnosis Comments URINALYSIS WITH REFLEX MICROSCOPIC STAT 08/12/2025 9:06 AM EST URINALYSIS WITH REFLEX MICROSCOPIC STAT 08/12/2025 9:06 AM EST STREP B PCR Routine 08/12/2025 9:06 AM EST DRUG ABUSE SCREEN 8A PANEL, URINE STAT 08/12/2025 9:06 AM EST TRICHOMONAS VAGINALIS ANTIGEN STAT 08/12/2025 9:06 AM EST WET PREP, GENITAL STAT 08/12/2025 9:0 6 AM EST CHLAMYDIA TRACHOMATIS AND NEISSERIA GONORRHOEAE PCR Routine 08/12/2025 9:06 AM EST CULTURE URINE Routine 08/12/2025 9:06 AM EST US OB TRANSVAGINAL STAT 07/17/2025 11 :15 AM EDT Vaginal bleeding in , third trimester Obesity complicating in third trimester 30 weeks gestation of US OB 14+ WKS SINGLE OR FIRST GESTATION STAT 07/17/2025 11:15 AM EDT Vaginal bleeding in , third trimester 30 weeks gestation of Obesity complicating in third trimester GTT GESTATIONAL 3 HOUR Routine 5 12:43 PM EDT Encounter for supervision of normal first in first trimester GTT GESTATIONAL 2 HOUR Routine 5 11:45 AM EDT Encounter for supervision of normal first in first trimester GTT GESTATIONAL 1 HOUR Routine 5 10:44 AM EDT Encounter for supervision of normal first in first trimester GTT GESTATIONAL FASTING Routine 07/03/20 9:46 AM EDT Encounter for supervision of normal first in first trimester GLUCOSE TOLERANCE TEST, 3H GESTATION Routine 07/03/2025 9:46 AM EDT Encounter for supervision of normal first in first trimester GTT GESTATIONAL 1 HOUR Routine 11:25 AM EDT Encounter for screening, unspecified CBC WITH AUTO DIFFERENTIAL Routine 06/25/2025 11:25 AM EDT Encounter for screening, unspecified TREPONEMA PALLIDUM ANTIBODY WITH REFLEX TO RPR AND PARTICLE AGGLUTINATION Routine 06/25/2025 11:25 AM EDT Encounter for screening, unspecified Screen for STD (sexually transmitted disease) GLUCOSE TOLERANCE TEST, 1H GESTATION Routine 06/25/2025 11:25 AM EDT Encounter for screening, unspecified CBC AND DIFFERENTIAL Routine 06/25/2025 11:25 AM EDT Encounter for screening, unspecified PAP SMEAR Routine 03/14/2025 10:48 AM EDT 12 weeks gestation of Screening for cervical cancer Screen for STD (sexually transmitted disease) HEPATITIS C ANTIBODY Routine 03/02/2025 11:01 AM EDT Encounter for screening of mother Encounter for supervision of normal first in first trimester HIV 1, 2 ANTIBODY, P24 ANTIGEN WITH REFLEX TO DIFFERENTIATION Routine 03/02/2025 11:01 AM EDT Encounter for screening of mother Encounter for supervision of normal first in first trimester from Last 3 Months or Most Recently Relevant to Health Maintenance Results * (ABNORMAL) Urinalysis with reflex microscopic (08/12/2025 9:06 AM EST) Specific [place] Urine 1.018 1.003 - 1.030 LAB URINALYSIS - AUTOMATED METHOD 08/12/2025 9:32 AM [facility] pH, Urine 6.0 5.0 - 8.0 pH LAB URINALYSIS - AUTOMATED METHOD 08/12/2025 9:32 AM [facility] Leukocytes, Urine Small(A) Negative LAB URINALYSIS - AUTOMATED METHOD 08/12/2025 9:32 AM [facility] Nitrite, Urine Negative Negative LAB URINALYSIS - AUTOMATED METHOD 08/12/2025 9:32 AM [facility] Protein, Urine Trace <=Trace mg/dL LAB URINALYSIS - AUTOMATED METHOD 08/12/2025 9:32 AM [facility] Glucose, Urine Negative Negative mg/dL LAB URINALYSIS - AUTOMATED METHOD 08/12/2025 9:32 AM [facility] Ketones, Urine Negative Negative mg/dL LAB URINALYSIS - AUTOMATED METHOD 08/12/2025 9:32 AM [facility] Urobilinogen, Urine 1.0 0.2 - 1.0 mg/dL LAB URINALYSIS - AUTOMATED METHOD 08/12/2025 9:32 AM [facility] Bilirubin, Urine Negative Negative LAB URINALYSIS - AUTOMATED METHOD 08/12/2025 9:32 AM [facility] Blood, Urine Negative Negative LAB URINALYSIS - AUTOMATED METHOD 08/12/2025 9:32 AM [facility] RBC, Urine 2.0 0 - 4 /HPF LAB URINALYSIS - AUTOMATED METHOD 08/12/2025 9:32 AM [facility] WBC, Urine 4.3(H) 0 - 4 /HPF LAB URINALYSIS - AUTOMATED METHOD 08/12/2025 9:32 AM [facility] Squamous Epithelial, Urine 71(H) 0 - 60 /LPF LAB URINALYSIS - AUTOMATED METHOD 08/12/2025 9:32 AM [facility] Bacteria, Urine Negative Negative /HPF LAB URINALYSIS - AUTOMATED METHOD 08/12/2025 9:32 AM [facility] Hyaline Casts, Urine 2.0 0 - 3 /LPF LAB URINALYSIS - AUTOMATED METHOD 08/12/2025 9:32 AM [facility] Urine Urine specimen obtained by clean catch procedure / Unknown Non-blood Collection / Unknown 08/12/2025 9:06 AM EST 08/12/2025 9:20 AM EST us Shahid Davidson MD LAB URINE ORDERABLES Fi nal Result [facility] [address] [place] [address], * Drug abuse screen 8a panel, urine (08/12/2025 9:06 AM EST) Amphetamine Screen, Ur Negative Negative LAB CHEMISTRY METHOD 08/12/2025 9:42 AM [facility] Comment:Certain OTC medicati ons containing ephedrine, phenylephrine, pseudoephedrine and phenylpropanolamine can cause false positive results. Barbiturate Screen, Ur Negative Negative LAB CHEMISTRY METHOD 08/12/2025 9:42 AM [facility] Benzodiazepine Screen, Ur Negative Negative LAB CHEMISTRY METHOD 08/12/2025 9:42 AM [facility] Cocaine Screen, Ur Negative Negative LAB CHEMISTRY METHOD 08/12/2025 9:42 AM [facility] Opiate Screen, Ur Negative Negative LAB CHEMISTRY METHOD 08/12/2025 9:42 AM [facility] Cannabinoid (THC) Screen, Ur Negative Negative LAB CHEMISTRY METHOD 08/12/2025 9:42 AM [facility] Comment:Specimens from patie nts taking pantoprazole sodium (Protonix) have been shown to produce false positive results. Oxycodone Screen, Ur Negative Negative LAB CHEMISTRY METHOD 08/12/2025 9:42 AM [facility] Fentanyl, Ur Negative Negative LAB CHEMISTRY METHOD 08/12/2025 9:42 AM EST [facility] Urine Urine specimen obtained by clean catch procedure / Unknown Non-blood Collection / Unknown 08/12/2025 9:06 AM EST 08/12/2025 9:19 AM EST Narrative [facility] - 08/12/2025 9:42 AM EST Assay cutoffs: Amphetamines 1000 ng/mL Barbiturates 200 ng/mL Benzodiazepines 200 ng/mL Cocaine 300 ng/mL Fentanyl 1 ng/mL Opiates 300 ng/mL Oxycodone 100 ng/mL THC 50 ng/mL Semi-quantitative assay for screening purposes only. Unconfirmed screening result should not be used for non-medical purposes. *ALTERNATE METHOD CONFIRMATION DONE UPON REQUEST ONLY* Shahid Davidson MD LAB URINE ORDERABLES Fi nal Result Performing Organization Address City/[facility]/ZIP Co de Phone Number [facility] [address] [place] [address], [place] [phone] * Trichomonas vaginalis antigen (08/12/2025 9:06 AM EST) Pathologist [facility] Trichomonas vaginalis Negative Negative 08/12/2025 9:49 AM EST [facility] Swab Vaginal structure / Unknown Non-blood Collection / Unknown 08/12/2025 9:06 AM EST 08/12/2025 9:20 AM EST Shahid Davidson MD LAB MICROBIOLOGY - GENE RAL ORDERABLES Final Result [facility] [address] [place] [address], [place] [phone] * Chlamydia trachomatis and Neisseria gonorrhoeae molecular study (08/12/2025 9:06 AM EST) Neisseria gonorrhoeae PCR Negative Negative LAB MOLECULAR DIAGNOSTICS METHOD 08/12/2025 3:01 PM EST [facility] Chlamydia trachomatis PCR Negative Negative LAB MOLECULAR DIAGNOSTICS METHOD 08/12/2025 3:01 PM EST [facility] Swab Cervix uteri structure / Unknown Non-blood Collection / Unknown 08/12/2025 9:06 AM EST 08/12/2025 9:20 AM EST Shahid Davidson MD LAB MICROBIOLOGY - GENE RAL ORDERABLES Final Result [facility] [address] [place] [address], [place] [phone] * Strep B molecular study (08/12/2025 9:06 AM EST) [facility] Grp B Strep PCR Not Detected Not Detected LAB MICROBIOLOGY METHOD 08/13/2025 8:19 AM [facility] Swab Pooled specimen from vaginal introitus and rectal swab / Unknown Non-blood Collection / Unknown 08/12/2025 9:06 AM EST 08/12/2025 9:20 AM EST Shahid Davidson MD LAB BLOOD ORDERABLES Fi nal Result Performing Organization Address City/[facility]/ZIP Co de Phone Number [facility] [address] [place] [address], [place] [phone] * Wet prep, genital (08/12/2025 9:06 AM EST) [facility] Clue Cells, Wet Prep Negative Negative 08/12/2025 9:36 AM EST [facility] Yeast, Wet Prep Negative Negative 08/12/2025 9:36 AM EST [facility] Trichomonas, Wet Prep Indeterminate Negative 08/12/2025 9:36 AM EST [facility] Comment:Refer to Trichomonas antigen. Swab Vaginal structure / Unknown Non-blood Collection / Unknown 08/12/2025 9:06 AM EST 08/12/2025 9:20 AM EST Shahid Davidson MD LAB MICROBIOLOGY - GENE RAL ORDERABLES Final Result Performing Organization Address [facility]/ZIP Co de Phone Number [facility] [address] [place] [address], [place] [phone] * Urine culture (08/12/2025 9:06 AM EST) Culture, Urine No growth 08/13/2025 9:01 AM EST [facility] Urine Urine specimen obtained by clean catch procedure / Unknown Non-blood Collection / Unknown 08/12/2025 9:06 AM EST 08/12/2025 9:19 AM EST Shahid Davidson MD LAB MICROBIOLOGY - GENE RAL ORDERABLES Final Result Performing Organization Address [facility] Co de Phone Number [facility] [address] [place] [address], [place] [phone] * US OB Transvaginal (07/17/2025 11:15 AM EDT) Anatomical Region Laterality Modality Body Ultrasound 07/17/2025 9:29 AM EDT Narrative 07/18/2025 10:49 AM EDT OBSTETRICS REPORT (Signed Final 07/18/2025 10:49 am) PATIENT INFO: ID #: [id number] : [birth year] (25 yrs)(F) Name: MADDIE ALCAZAR Visit Date: 07/17/2025 09:29 am PERFORMED BY: Attending: Emily Mota MD Performed By: CHART PREP Referred By: Riana Figueroa [facility] Ref. Address: [address] [place] [address] Location: [place] [facility] ([facility]) SERVICE(S) PROVIDED: OB Complete >=14 weeks 75392 OB Transvaginal ultrasound 56730 INDICATIONS: Vaginal bleeding in , third trimester O20.93 Obesity complicating , 3rdtrimester O99.213 30 weeks gestation of Z3A.30 TECHNIQUE/SCAN QUALITY: Technique: Transabdominal & Transvaginal Scan Satisfactory Quality: OB HISTORY: : 1 Term: 0 Paolo: 0 SAB: 0 TOP: 0 Ectopic: 0 Livin VITAL SIGNS: Weight (lb) Height BMI 168 5'2 30.72 EVALUATION: Number Of Fetuses: 1 Heart Rate(bpm): 142 Cardiac Activity: Observed Regular rhythm Presentation: Vertex Placenta Location: Anterior Appearance: Grade 2 Relation to CVX: No previa Amniotic Fluid LENCHO FV: Within Normal Limits RUQ(cm) RLQ(cm) LUQ(cm) LLQ(cm) 5.06 3.86 1.38 3.59 LENCHO Sum(cm) %Tile Largest Pocket(cm) 13.89 45 5.06 BIOMETRY: BPD: 80.5 mm G.Age: 32w 2d 93 % HC: 281.2 mm G.Age: 30w 6d 33 % AC: 276 mm G.Age: 31w 5d 86 % FL: 56.2 mm G.Age: 29w 4d 20 % CER: 37 mm G.Age: 32w 0d 71 % LV: 6.8 mm CM: 5.2 mm CI: 81.64 % 70 - 86 FL/HC: 20.0 % 19.2 - 21.4 HC/AC: 1.02 0.99 - 1.21 FL/BPD: 69.8 % 71 - 87 FL/AC: 20.4 % 20 - 24 Est. FW: 1677 gm 3 lb 11 oz 67 % GESTATIONAL AGE: LMP: 30w 1d Date: 12/18/24 MAXIMILIANO: 09/24/25 U/S Today: 31w 1d MAXIMILIANO: 09/17/25 Best: 30w 1d Det. By: LMP (12/18/24) MAXIMILIANO: 09/24/25 STANDARD ANATOMY: Cranium: Normal appearance Ventricles: Normal appearance Cerebellum: Normal appearance Posterior Fossa: Normal appearance Heart: Normal appearance Stomach: Normal appearance Abdomen: Normal appearance Abdominal Wall: Suboptimal views Cord Vessels: Normal 3-Vessel Cord Kidneys: Normal appearance Bladder: Normal appearance Spine: Suboptimal views CERVIX UTERUS ADNEXA: Cervix Length: 3.24 cm. Within Normal Limits Right Ovary Size(cm) 2.13 x 2.57 x 2.61 Vol(ml): 7.48 Normal in size and appearance. It is found between the uterus and the pelvic sidewall. Left Ovary Size(cm) 3.06 x 2.99 x 2.04 Vol(ml): 9.77 Normal in size and appearance. It is found between the uterus and the pelvic sidewall. COMMENTS: Ms. Alcazar is being seen for third trimester bleeding. - Her medical history is significant for STI in . She takes vitamins and 81mg aspirin daily. - This is her first . - She had cell free DNA screening. Results were low-risk for all conditions assessed. - Ultrasound findings: The estimated weight is 1,677 grams, at the 67th percentile. The amniotic fluid index is 13.89 cm, appropriate for the gestational age. - A transvaginal ultrasound was performed. The cervix is long and closed with no signs of funneling or dynamic change. The placenta is anterior in implantation and not a previa/low-lying. - No additional ultrasounds have been scheduled. Follow up as clinically indicated. Emily Mota MD Electronically Signed Final Report 07/18/2025 10:49 am Procedure Note Emily Mota MD - 07/18/2025 OBSTETRICS REPORT (Signed Final 07/18/2025 10:49 am) PATIENT INFO: ID #: [id number] : [birth year] (25 yrs)(F) Name: MADDIE ALCAZAR Visit Date: 07/17/2025 09:29 am PERFORMED BY: Attending: Emily Mota MD Performed By: CHART PREP Referred By: Riana Figueroa [facility] Ref. Address: [address] [place] [address] Location: [place] [facility] ([facility]) SERVICE(S) PROVIDED: OB Complete >=14 weeks 44439 OB Transvaginal ultrasound 25708 INDICATIONS: Vaginal bleeding in , third trimester O20.93 Obesity complicating , 3rdtrimester O99.213 30 weeks gestation of Z3A.30 TECHNIQUE/SCAN QUALITY: Technique: Transabdominal & Transvaginal Scan Satisfactory Quality: OB HISTORY: : 1 Term: 0 Paolo: 0 SAB: 0 TOP: 0 Ectopic: 0 Livin VITAL SIGNS: Weight (lb) Height BMI 168 5'2 30.72 EVALUATION: Number Of Fetuses: 1 Heart Rate(bpm): 142 Cardiac Activity: Observed Regular rhythm Presentation: Vertex Placenta Location: Anterior Appearance: Grade 2 Relation to CVX: No previa Amniotic Fluid LENCHO FV: Within Normal Limits RUQ(cm) RLQ(cm) LUQ(cm) LLQ(cm) 5.06 3.86 1.38 3.59 LENCHO Sum(cm) %Tile Largest Pocket(cm) 13.89 45 5.06 BIOMETRY: BPD: 80.5 mm G.Age: 32w 2d 93 % HC: 281.2 mm G.Age: 30w 6d 33 % AC: 276 mm G.Age: 31w 5d 86 % FL: 56.2 mm G.Age: 29w 4d 20 % CER: 37 mm G.Age: 32w 0d 71 % LV: 6.8 mm CM: 5.2 mm CI: 81.64 % 70 - 86 FL/HC: 20.0 % 19.2 - 21.4 HC/AC: 1.02 0.99 - 1.21 FL/BPD: 69.8 % 71 - 87 FL/AC: 20.4 % 20 - 24 Est. FW: 1677 gm 3 lb 11 oz 67 % GESTATIONAL AGE: LMP: 30w 1d Date: 12/18/24 MAXIMILIANO: 09/24/25 U/S Today: 31w 1d MAXIMILIANO: 09/17/25 Best: 30w 1d Det. By: LMP (12/18/24) MAXIMILIANO: 09/24/25 STANDARD ANATOMY: Cranium: Normal appearance Ventricles: Normal appearance Cerebellum: Normal appearance Posterior Fossa: Normal appearance Heart: Normal appearance Stomach: Normal appearance Abdomen: Normal appearance Abdominal Wall: Suboptimal views Cord Vessels: Normal 3-Vessel Cord Kidneys: Normal appearance Bladder: Normal appearance Spine: Suboptimal views CERVIX UTERUS ADNEXA: Cervix Length: 3.24 cm. Within Normal Limits Right Ovary Size(cm) 2.13 x 2.57 x 2.61 Vol(ml): 7.48 Normal in size and appearance. It is found between the uterus and the pelvic sidewall. Left Ovary Size(cm) 3.06 x 2.99 x 2.04 Vol(ml): 9.77 Normal in size and appearance. It is found between the uterus and the pelvic sidewall. COMMENTS: Ms. Alcazar is being seen for third trimester bleeding. - Her medical history is significant for STI in . She takes vitamins and 81mg aspirin daily. - This is her first . - She had cell free DNA screening. Results were low-risk for all conditions assessed. - Ultrasound findings: The estimated weight is 1,677 grams, at the 67th percentile. The amniotic fluid index is 13.89 cm, appropriate for the gestational age. - A transvaginal ultrasound was performed. The cervix is long and closed with no signs of funneling or dynamic change. The placenta is anterior in implantation and not a previa/low-lying. - No additional ultrasounds have been scheduled. Follow up as clinically indicated. Emily Mota MD Electronically Signed Final Report 07/18/2025 10:49 am us Latoya Ni [facility] IMG OB US PROCEDURES Final Result * US OB 14+ Wks Single or First Gestation (07/17/2025 11:15 AM EDT) Anatomical Region Laterality Modality Body Ultrasound 07/17/2025 9:29 AM EDT Narrative 07/18/2025 10:49 AM EDT OBSTETRICS REPORT (Signed Final 07/18/2025 10:49 am) PATIENT INFO: ID #: [id number] : [birth year] (25 yrs)(F) Name: MADDIE ALCAZAR Visit Date: 07/17/2025 09:29 am PERFORMED BY: Attending: Emily Mota MD Performed By: CHART PREP Referred By: Riana Figueroa [facility] Ref. Address: [address] [place] [address] Location: [place] [facility] ([facility]) SERVICE(S) PROVIDED: OB Complete >=14 weeks 65778 OB Transvaginal ultrasound 39407 INDICATIONS: Vaginal bleeding in , third trimester O20.93 Obesity complicating , 3rdtrimester O99.213 30 weeks gestation of Z3A.30 TECHNIQUE/SCAN QUALITY: Technique: Transabdominal & Transvaginal Scan Satisfactory Quality: OB HISTORY: : 1 Term: 0 Paolo: 0 SAB: 0 TOP: 0 Ectopic: 0 Livin VITAL SIGNS: Weight (lb) Height BMI 168 5'2 30.72 EVALUATION: Number Of Fetuses: 1 Heart Rate(bpm): 142 Cardiac Activity: Observed Regular rhythm Presentation: Vertex Placenta Location: Anterior Appearance: Grade 2 Relation to CVX: No previa Amniotic Fluid LENCHO FV: Within Normal Limits RUQ(cm) RLQ(cm) LUQ(cm) LLQ(cm) 5.06 3.86 1.38 3.59 LENCHO Sum(cm) %Tile Largest Pocket(cm) 13.89 45 5.06 BIOMETRY: BPD: 80.5 mm G.Age: 32w 2d 93 % HC: 281.2 mm G.Age: 30w 6d 33 % AC: 276 mm G.Age: 31w 5d 86 % FL: 56.2 mm G.Age: 29w 4d 20 % CER: 37 mm G.Age: 32w 0d 71 % LV: 6.8 mm CM: 5.2 mm CI: 81.64 % 70 - 86 FL/HC: 20.0 % 19.2 - 21.4 HC/AC: 1.02 0.99 - 1.21 FL/BPD: 69.8 % 71 - 87 FL/AC: 20.4 % 20 - 24 Est. FW: 1677 gm 3 lb 11 oz 67 % GESTATIONAL AGE: LMP: 30w 1d Date: 12/18/24 MAXIMILIANO: 09/24/25 U/S Today: 31w 1d MAXIMILIANO: 09/17/25 Best: 30w 1d Det. By: LMP (12/18/24) MAXIMILIANO: 09/24/25 STANDARD ANATOMY: Cranium: Normal appearance Ventricles: Normal appearance Cerebellum: Normal appearance Posterior Fossa: Normal appearance Heart: Normal appearance Stomach: Normal appearance Abdomen: Normal appearance Abdominal Wall: Suboptimal views Cord Vessels: Normal 3-Vessel Cord Kidneys: Normal appearance Bladder: Normal appearance Spine: Suboptimal views CERVIX UTERUS ADNEXA: Cervix Length: 3.24 cm. Within Normal Limits Right Ovary Size(cm) 2.13 x 2.57 x 2.61 Vol(ml): 7.48 Normal in size and appearance. It is found between the uterus and the pelvic sidewall. Left Ovary Size(cm) 3.06 x 2.99 x 2.04 Vol(ml): 9.77 Normal in size and appearance. It is found between the uterus and the pelvic sidewall. COMMENTS: Ms. Alcazar is being seen for third trimester bleeding. - Her medical history is significant for STI in . She takes vitamins and 81mg aspirin daily. - This is her first . - She had cell free DNA screening. Results were low-risk for all conditions assessed. - Ultrasound findings: The estimated weight is 1,677 grams, at the 67th percentile. The amniotic fluid index is 13.89 cm, appropriate for the gestational age. - A transvaginal ultrasound was performed. The cervix is long and closed with no signs of funneling or dynamic change. The placenta is anterior in implantation and not a previa/low-lying. - No additional ultrasounds have been scheduled. Follow up as clinically indicated. Emily Mota MD Electronically Signed Final Report 07/18/2025 10:49 am Emily Benjamin MD - 07/18/2025 OBSTETRICS REPORT (Signed Final 07/18/2025 10:49 am) PATIENT INFO: ID #: [id number] : [birth year] (25 yrs)(F) Name: MADDIE ALCAZAR Visit Date: 07/17/2025 09:29 am PERFORMED BY: Attending: Emily Mota MD Performed By: CHART PREP Referred By: Riana Figueroa [facility] Ref. Address: [address] [place] [address] Location: [place] [facility] ([facility]) SERVICE(S) PROVIDED: OB Complete >=14 weeks [address]61 OB Transvaginal ultrasound 92188 INDICATIONS: Vaginal bleeding in , third trimester O20.93 Obesity complicating , 3rdtrimester O99.213 30 weeks gestation of Z3A.30 TECHNIQUE/SCAN QUALITY: Technique: Transabdominal & Transvaginal Scan Satisfactory Quality: OB HISTORY: : 1 Term: 0 Paolo: 0 SAB: 0 TOP: 0 Ectopic: 0 Livin VITAL SIGNS: Weight (lb) Height BMI 168 5'2 30.72 EVALUATION: Number Of Fetuses: 1 Heart Rate(bpm): 142 Cardiac Activity: Observed Regular rhythm Presentation: Vertex Placenta Location: Anterior Appearance: Grade 2 Relation to CVX: No previa Amniotic Fluid LENCHO FV: Within Normal Limits RUQ(cm) RLQ(cm) LUQ(cm) LLQ(cm) 5.06 3.86 1.38 3.59 LENCHO Sum(cm) %Tile Largest Pocket(cm) 13.89 45 5.06 BIOMETRY: BPD: 80.5 mm G.Age: 32w 2d 93 % HC: 281.2 mm G.Age: 30w 6d 33 % AC: 276 mm G.Age: 31w 5d 86 % FL: 56.2 mm G.Age: 29w 4d 20 % CER: 37 mm G.Age: 32w 0d 71 % LV: 6.8 mm CM: 5.2 mm CI: 81.64 % 70 - 86 FL/HC: 20.0 % 19.2 - 21.4 HC/AC: 1.02 0.99 - 1.21 FL/BPD: 69.8 % 71 - 87 FL/AC: 20.4 % 20 - 24 Est. FW: 1677 gm 3 lb 11 oz 67 % GESTATIONAL AGE: LMP: 30w 1d Date: 12/18/24 MAXIMILIANO: 09/24/25 U/S Today: 31w 1d MAXIMILIANO: 09/17/25 Best: 30w 1d Det. By: LMP (12/18/24) MAXIMILIANO: 09/24/25 STANDARD ANATOMY: Cranium: Normal appearance Ventricles: Normal appearance Cerebellum: Normal appearance Posterior Fossa: Normal appearance Heart: Normal appearance Stomach: Normal appearance Abdomen: Normal appearance Abdominal Wall: Suboptimal views Cord Vessels: Normal 3-Vessel Cord Kidneys: Normal appearance Bladder: Normal appearance Spine: Suboptimal views CERVIX UTERUS ADNEXA: Cervix Length: 3.24 cm. Within Normal Limits Right Ovary Size(cm) 2.13 x 2.57 x 2.61 Vol(ml): 7.48 Normal in size and appearance. It is found between the uterus and the pelvic sidewall. Left Ovary Size(cm) 3.06 x 2.99 x 2.04 Vol(ml): 9.77 Normal in size and appearance. It is found between the uterus and the pelvic sidewall. COMMENTS: Ms. Alcazar is being seen for third trimester bleeding. - Her medical history is significant for STI in . She takes vitamins and 81mg aspirin daily. - This is her first . - She had cell free DNA screening. Results were low-risk for all conditions assessed. - Ultrasound findings: The estimated weight is 1,677 grams, at the 67th percentile. The amniotic fluid index is 13.89 cm, appropriate for the gestational age. - A transvaginal ultrasound was performed. The cervix is long and closed with no signs of funneling or dynamic change. The placenta is anterior in implantation and not a previa/low-lying. - No additional ultrasounds have been scheduled. Follow up as clinically indicated. Emily Mota MD Electronically Signed Final Report 07/18/2025 10:49 am us Latoya Ni CNM IMG OB US PROCEDURES Final Result * GTT gestational 3 hour (07/03/2025 12:43 PM EDT) Glucose, 3 HR Gestational 117 <140 mg/dL LAB CHEMISTRY METHOD 07/03/2025 3:18 PM EDT [facility] Blood Venous blood specimen / Unknown Venipuncture / Unknown 07/03/2025 12:43 PM EDT 07/03/2025 12:44 PM EDT Narrative [facility] - 07/03/2025 3:18 PM EDT Gestational 3 hour GTT Reference Range: Normal: Fasting: < 95 mg/dL 60 minute: < 180 mg/dL 120 minute: < 155 mg/dL 180 minute: < 140 mg/dL Kat LEROY LAB BLOOD ORDERABLES Final Res ult [facility] [address] [place] [address], [place] [phone] * GTT gestational 2 hour (07/03/2025 11:45 AM EDT) Glucose, 2 HR Gestational 138 <155 mg/dL LAB CHEMISTRY METHOD 07/03/2025 3:18 PM EDT [facility] Blood Venous blood specimen / Unknown Venipuncture / Unknown 07/03/2025 11:45 AM EDT 07/03/2025 11:45 AM EDT us Kat LEROY LAB BLOOD ORDERABLES Final Res ult Performing Organization Address [facility] Co de Phone Number [facility] [address] [place] [address], [place] [phone] * GTT gestational 1 hour (07/03/2025 10:44 AM EDT) Only the most recent of2 resultswithin the time period is included. [facility] Glucose, 1 HR Gestational 152 <180 mg/dL LAB CHEMISTRY METHOD 07/03/2025 3:19 PM EDT [facility] Blood Venous blood specimen / Unknown Venipuncture / Unknown 07/03/2025 10:44 AM EDT 07/03/2025 10:44 AM EDT us Kat Albright [facility] BLOOD ORDERABLES Final Res ult Performing Organization Address [facility] de Phone Number [facility] [address] [place] [address], [place] [phone] * GTT gestational fasting (07/03/2025 9:46 AM EDT) [facility] Glucose, GTT - Fasting 73 <95 mg/dL LAB CHEMISTRY METHOD 07/03/2025 3:18 PM EDT [facility] Blood Venous blood specimen / Unknown Venipuncture / Unknown 07/03/2025 9:46 AM EDT 07/03/2025 9:46 AM EDT us Kat Albright [facility] BLOOD ORDERABLES Final Res ult Performing Organization Address [facility] Co de Phone Number [facility] [address] [place] [address], [place] [phone] * Treponema pallidum antibody with reflex to RPR and particle agglutination (06/25/2025 11:25 AM EDT) [facility] T. Pallidum Antibodies Negative Negative LAB CHEMISTRY METHOD 06/25/2025 1:02 PM EDT [facility] Blood Venous blood specimen / Unknown Venipuncture / Unknown 06/25/2025 11:25 AM EDT 06/25/2025 11:58 AM EDT Kat LEROY LAB BLOOD ORDERABLES Final Res ult [facility] [address] [place] [address], [place] [phone] * (ABNORMAL) CBC auto differential (06/25/2025 11:25 AM EDT) [facility] WBC 13.5(H) 4.8 - 10.8 K/mcL LAB HEMETOLOGY METHOD 06/25/2025 1:24 PM EDT [facility] RBC 3.70(L) 3.80 - 4.80 M/mcL LAB HEMETOLOGY METHOD 06/25/2025 1:24 PM EDT [facility] Hemoglobin 12.3 11.5 - 16.0 g/dL LAB HEMETOLOGY METHOD 06/25/2025 1:24 PM EDT [facility] Hematocrit 34.7(L) 35.0 - 47.0 % LAB HEMETOLOGY METHOD 06/25/2025 1:24 PM EDT [facility] MCV 94.0 79.0 - 98.0 FL LAB HEMETOLOGY METHOD 06/25/2025 1:24 PM EDT [facility] MCH 33.3(H) 27.0 - 32.0 pcg LAB HEMETOLOGY [facility]25 [facility] MCHC 35.4 32.0 - 37.0 g/dL LAB HEMETOLOGY METHOD 06/25/2025 1:24 PM EDT [facility] RDW 12.8 11.0 - 15.0 % LAB HEMETOLOGY METHOD 06/25/2025 1:24 PM EDT [facility] Platelets 298 130 - 400 K/mcL LAB HEMETOLOGY METHOD 06/25/2025 1:24 PM [facility] MPV 10.3 7.0 - 11.0 FL LAB HEMETOLOGY METHOD [facility]/25[facility]2025 [facility] NRBC 0.0 <1.0 % LAB HEMETOLOGY METHOD 06/25/2025 1:24 PM [facility] NRBC Absolute 0.00 <0.10 K/mcL LAB HEMETOLOGY [facility]/25[facility]2025 [facility] Neutrophils Relative 72.4 % LAB HEMETOLOGY METHOD 06/25/2025 1:24 PM [facility] Lymphocytes Relative 18.2 % LAB HEMETOLOGY METHOD 06/25/2025 1:24 PM [facility] Monocytes Relative 5.4 % LAB HEMETOLOGY METHOD 06/25/2025 1:24 PM [facility] Eosinophils Relative 1.5 % LAB HEMETOLOGY METHOD 06/25/2025 1:24 PM [facility] Basophils Relative 0.5 % LAB HEMETOLOGY METHOD 06/25/2025 1:24 PM [facility] Immature Granulocytes Relative 2.0 % LAB HEMETOLOGY METHOD 06/25/2025 1:24 PM [facility] Neutrophils Absolute 9.73(H) 1.50 - 7.00 K/mcL LAB HEMETOLOGY METHOD 06/25/2025 1:24 PM [facility] Lymphocytes Absolute 2.45 1.00 - 5.00 K/mcL LAB HEMETOLOGY METHOD 06/25/2025 1:24 PM [facility] Monocytes Absolute 0.73 0.20 - 1.00 K/mcL LAB HEMETOLOGY METHOD 06/25/2025 1:24 PM EDT [facility] Eosinophils Absolute 0.20 0.00 - 0.50 K/[facility] LAB HEMETOLOGY METHOD 06/25/2025 1:24 PM EDT [facility] Basophils Absolute 0.07 0.00 - 0.20 K/[facility] LAB HEMETOLOGY METHOD 06/25/2025 1:24 PM EDT [facility] Immature Granulocytes Absolute 0.27(H) 0.00 - 0.03 K/mcL LAB HEMETOLOGY METHOD 06/25/2025 1:24 PM EDT [facility] Blood Venous blood specimen / Unknown Venipuncture / Unknown 06/25/2025 11:25 AM EDT 06/25/2025 12:00 PM EDT Kat Albright CN LAB BLOOD ORDERABLES Final Res ult [facility] [address] [place] [address], * Pap smear (03/14/2025 10:48 AM EDT) Interpretation Negative for intraepithelial lesion or malignancy 03/20/2025 2:09 PM EDT [facility] General Categorization Negative 03/20/2025 2:09 PM EDT [facility] Other Findings Shift in anastasia suggestive of bacterial vaginosis 03/20/2025 2:09 PM EDT [facility] Specimen Adequacy Satisfactory for evaluation, endocervical/naqvi sformation zone component present 03/20/2025 2:09 PM EDT [facility] Pap Methodology Liquid Based Pap Test 03/20/2025 2:09 PM EDT [facility] Disclaimer Note: This pap test could not be imaged utilizing the [employer] Imaging System and required a manual review. The Pap test is a screening test which carries an inherent false negative rate. These test results should be correlated with the patient's clinical findings and history. This Pap test was processed using an automated screening system. Technical cytopathology services provided by [facility], at [address] [place] [address] (CLIA # [id number]/Marine Senior MD, [employer].) 03/20/2025 2:09 PM EDT [facility] Console Pap Interpretation Reported 03/20/2025 2:09 PM EDT [facility] Brushing/Spatula Cervix uteri structure / Unknown 03/14/2025 10:48 AM EDT 03/15/2025 7:46 AM EDT [facility] CYT[facility]Y ORDERABLES Final Result Performing Organization Address City/[facility]/ZIP Co de Phone Number [facility] [address] [place] [address], [place] [phone] * Hepatitis C antibody (03/02/2025 11:01 AM EDT) Hepatitis C Antibody Negative Negative LAB CHEMISTRY METHOD 03/02/2025 1:46 PM EDT [facility] Blood Venous blood specimen / Unknown Venipuncture / Unknown 03/02/2025 11:01 AM EDT 03/02/2025 11:48 AM EDT [facility] LAB BLOOD ORDERABLES Final Re sult [facility] [address] [place] [address], [place] [phone] * HIV 1,2 antibody, p24 antigen with reflex to differentiation (03/02/2025 11:01 AM EDT) HIV Combo AB/AG Negative Negative LAB CHEMISTRY METHOD 03/02/2025 1:46 PM EDT [facility] Blood Venous blood specimen / Unknown Venipuncture / Unknown 03/02/2025 11:01 AM EDT 03/02/2025 11:48 AM EDT Narrative [facility] - 03/02/2025 1:46 PM EDT This assay is a 4th generation assay allowing for earlier detection of HIV infection by detecting the presence of the HIV-1 p24 antigen as well as the traditional antibodies to HIV type 1 (including group O) and type 2. Use of a 4th generation assay is the current CDC recommendation for HIV screening. Riana LEROY LAB BLOOD ORDERABLES Final Re sult [facility] [address] [place] [address], from Last 3 Months or Most Recently Relevant to Health Maintenance Insurance MEDICAID - [place] Advance Directives * Full Code - Confirmed (Latest Code Status on File) Date Activated Date Inactivated Comments 08/12/2025 8:51 AM 08/12/2025 3:31 PM Care Teams Chicken Boner Relationship Specialty Start Date End Date Physician, No Pcp PCP - General 02/23/25
--- OUTSIDE RECORDS SUMMARY | 2025-09-05 13:21 | XMS_ITS | Encounter Summary ---
Author Organization [employer] Address [address] [place] [address] Care Team Providers Care House Sitter Name Role Phone Unavailable Primary Care Provider Unavailabl e Reason for Visit * Reason Onset Date Comments chart prep 09/03/2025 Encounter Details Date Type Department Care Team ([facility] st Contact Info) Description 09/03/2025 Telephone [facility] [address] [place] [address] [place], [place] chart prep Social History Tobacco Use Types Packs/Day Years Used Date Smoking Tobacco: Never Assessed Housing Stability Answer Date Recorded What is [...] off services in your home? No 08/28/2025 Internet Access Answer Date Recorded Internet Access Q1 Yes 08/28/2025 Internet Access Q2 Not on file 08/28/2025 Comments Unknown Sex and Gender Information Value Date Recorded Sex Assigned at Female 08/10/2022 10:16 AM EDT Legal Sex Female 10:16 AM EDT Gender Identity Female 08/10/2022 10:16 AM EDT Sexual Orientation Straight 08/10/2022 10 :16 AM EDT documented as of this encounter Miscellaneous Notes * Telephone Encounter - Venita Beck MA - 09/03/2025 2:09 PM EST Chart Prep Labs: not applicable Images: not applicable Referrals: not applicable Vaccines due: Covid, Flu, and Hep A Screenings: papsmear Overdue care gaps: SBIRT, PHQ-9, CANDACE-7, Disability screen, and Tobacco documented in this encounter Plan of Treatment Upcoming Encounters Date Type Department Care Team ([facility] st Contact Info) Description 09/26/2025 2:30 PM EST Office Visit [facility] [address] [place] [address] Maite Gorman, ANGIE [address] [place] [address] documented as of this encounter Visit Diagnoses Not on filedocumented in this encounter
--- OUTSIDE RECORDS SUMMARY | 2025-09-05 13:21 | XMS_ITS | Clinical Summary ---
Author Organization [employer] Address [address] [facility] 7t [place] [address] Care Team Providers Care Slotter Operator Helper Name Role Phone Maite Gorman VBA PROGRAMMER Primary Care Provider [phone] [phone] Allergies No known active allergies Medications acetaminophen (Tylenol) 500 MG tablet TAKE 2 TABLETS BY MOUTH EVERY 6 HOURS FOR PAIN 07/15/2025 Active aspirin 81 MG EC tablet Take 81 mg by mouth Once per day. 02/28/2025 Active docusate sodium (Colace) 100 MG capsule Take 100 mg by mouth. 08/16/2025 Active ergocalciferol (Vitamin D-2) 1.25 MG (81251 UT) capsule take 1 capsule by oral route every week x 15 weeks 10/08/2021 Active Ferrous Sulfate (IRON PO) Take 1 tablet by mouth Once per day. 05/31/2025 6 Active ibuprofen 800 MG tablet Take 800 mg by mouth. 11/01/2020 6 Active multivitamin () 27-0.8 MG tablet Take 1 tablet by mouth Once per day. 05/31/2025 Active ibuprofen 600 MG tabletIndicatio ns:Breast pain Take 1 tablet (600 mg) by mouth every 8 (eight) hours if needed for mild pain for up to 10 days. 30 tablet 09/05/2025 5 Active Active Problems Problem Noted Date Diagnosed Date Back pain 09/03/2025 Class 1 obesity 09/03/2025 Assessment & Plan (09/05/2025 10:28 AM EST): Pt has strong family history of T2DM I will include A1c level in blood work. Dietary Recommendations: Fruits, vegetables, whole grains, protein foods, and fat-free or low-fat dairy products are healthy choices. Eat different types of protein foods in your diet. This can include seafood, lean meats, poultry, beans, peas, lentils, nuts, seeds, soy products, and eggs. Limit foods and beverages higher in added sugars, saturated fat, and sodium. Exercise Recommendations: At least 150 minutes of moderate-intensity physical activity per week, or an equivalent combination of moderate- and vigorous-intensity activity Orders: CBC auto differential Basic Metabolic Panel Hepatic Function Panel Hemoglobin A1c; Future premature rupture of membranes (PPROM) with unknown onset of labor 09/03/2025 PROM (premature rupture of membranes) 08/12/2025 Elevated glucose tolerance test 07/04/2025 Overview (09/03/2025): Normal 3hr Chlamydia infection during 05/09/2025 Overview (09/03/2025): 03/14/2025- Positive Chlamydia at IP- pt and partner completed treatment WILLAM 04/12/2025- Negative Repeat at 36 weeks- completed today with PPROM Rubella non-immune status, antepartum 03/06/2025 Overview (09/03/2025): Vaccinate PP Urinary tract infection in m other during first trimester of 03/06/2025 Overview (09/03/2025): 03/06/2025 E coli UTI- treated Macrobid 05/09- WILALM ordered- no growth Encounter for supervision of normal first in first trimester 02/28/2025 Overview (09/03/2025): 1. [facility] site: [facility] ([facility]): [address] [place] [phone] ([phone]) 2. Delivery site: [facility] 3. Mobile Mommas: 4. Dating criteria: LMP [...] - F. Circumcision - 9. Hospital Course: Acne 01/17/2013 Encounters Date Type Department Care Team Description 09/05/2025 9:00 AM EST Office Visit [facility] MED & PEDS [address] [place] [address] Maite Gorman CNP Encounter to establish care with new provider (Primary Dx); Class 1 obesity; Breast pain; Encounter for allergy testing 09/05/2025 Travel 09/03/2025 Telephone [facility] MED & PEDS [address] [place], [place] [phone] Venita Beck MA chart prep 08/28/2025 Patient Outreach [facility] MEDICINE [address] [place] [address] Maite Gorman CNP Pre-visit Planning (SDOH Screening negative and Tobacco screening negative) 07/31/2025 Population Health Risk Score [facility] Department [address] [address] Provider, Population Health Generic 07/23/2025 Telephone [facility] INS ENROLLMENT [address] [place], [place] [phone] Suha Bello MD 07/19/2025 Telephone [facility] MEDICINE [address] [place] [address] Phong Jimenez MD 07/17/2025 Telephone [facility] MED[facility]INE [address] [place] [phone] Phong Jimenez MD CHW - New Patient Assistance from Last 3 Months Immunizations Immunization Administration Dates Next Due DTaP 09/10/2005, 2,2001,09/10,2001 HPV, Quadrivalent 11/17/2011,02/06/2011,11/21/19 11 Hep A, ped/adol, 2 dose 01/29/2015 Hep B, Adolescent or Pediatric 01/13/2002,2000,2001 Hib (HbOC) 01/13/2002,2001,2001 IPV 09/10/2005, 2,2001,09/10 Influenza, Split (incl. maurisio fied surface antigen) 11/14/2012 MMR 08/16/2025,09/10/2005,06/30/2002 Meningococcal MCV4P ACYW-135 11/14/2012 Pneumococcal Conjugate PCV 7 01/13/2002,11/11/19 02,2001 Tdap 07/11/2025,11/14/2012 Varicella 01/23/2014,06/30/2002 Family History Medical History Relation Name Comments Diabetes Father Relation Name Status Comments Father Social History Tobacco Use Types Packs/Day Years [...] Orientation Straight 08/10/2022 10 :16 AM EDT Last Filed Vital Signs Vital Sign [...] Mass Index 33.04 09/05/2025 9:44 AM EST Plan of Treatment Upcoming Encounters Date Type Department Care Team (Late st Contact Info) Description 09/26/2025 2:30 PM EST Office Visit [facility] MED & PEDS [address] [place], [place] [phone] GormanMaite, [facility] [address] [place] [address] Health Maintenance Due Date Last Done Comments Hepatitis A Vaccines (2 of 2 - 2-dose series) 07/31/2015 01/29/2015 Family Planning (PISQ) 2016 COVID-19 Vaccine ( - season) 2025 Influenza Vaccine (#1) 2025 11/14/2012 SDOH Screening 08/28/2026 08/28/2025 Alcohol/Substance Use Screening 09/05/2026 09/05/2025 Depression Screening 09/05/2026 09/05/2025, 09/05/20 25 Disability Screening 09/05/2026 09/05/2025 Tobacco Screening 09/05/2026 09/05/2025 Lipid Panel 03/26/2027 03/26/2022 Pap Smear 03/11/2028 Postponed from 2022 (Other Patient Reasons) DTaP/Tdap/Td Vaccines (7 - Td or Tdap) 07/11/2035 07/11/2025, 11/14/2012, 09/10/2005, Additional history exists Zoster Vaccines (1 of 2) 2051 RSV Patients and Patients Aged 60 years or older (1 - 1-dose 75+ series) 2076 HIB Vaccines Aged Out 01/13/2002, 10/2001, 2001 No longer eligible based on patient's age to complete this topic Hepatitis B Vaccines Completed 01/13/2002, 2001, 2001 Pneumococcal Vaccine: Pediatrics (0 to 5 Years) and At-Risk Patients (6 to 49) Years Aged Out 01/13/2002, 2001, 2001 No longer eligible based on patient's age to complete this topic IPV Vaccines Completed 09/10/2005, 10/2001, 2001, Additional history exists HPV Vaccines Completed 11/17/2011, 01/10, 11/21/2010 Meningococcal Vaccine Aged Out 11/14/2012 No michael gaby eligible based on patient's age to complete this topic HIV Screening Completed 11/24/2019 Hepatitis C Screening Completed 11/24/2019 Meningococcal B Vaccine Aged Out No l onger eligible based on patient's age to complete this topic RSV under 20 months Aged Out No longe r eligible based on patient's age to complete this topic Rotavirus Vaccines Aged Out No longer eligible based on patient's age to complete this topic Procedures Procedure Name Priority Date/Time Associated Diagnosis Comments LIPID PANEL, STANDARD Routine 03/26/2022 9:58 AM EDT [facility] HISTORICAL HEPATITIS C ANTIBODY RFLX Routine 11/24/2019 11:05 AM EST ZZZ HISTORICAL HIV AB/AG Routine 11/24/2019 11:05 AM EST from Last 3 Months or Most Recently Relevant to Health Maintenance Results * (ABNORMAL) LIPID PANEL, STANDARD (03/26/2022 9:58 AM EDT) Chol/HDLC Ratio 3.8 <5.0 (calc) [facility] Cholesterol, Total 148 <200 mg/dL [facility] HDL Cholesterol 39(L) > OR = 50 mg/dL [facility] LDL Cholesterol 84 mg/dL (calc) [facility] Comment: Reference range: <100 Desirable range <100 mg/dL for primary prevention; <70 mg/dL for patients with CHD or diabetic patients with > or = 2 CHD risk factors. LDL-C is now calculated using the Rito calculation, which is a validated novel method providing better accuracy than the Friedewald equation in the estimation of LDL-C. Jose R SS et al. RAJEEV. 2013;310(37): 0485-7519 (http://education.ActionTax.ca/faq/IFI897) Non-HDL Cholesterol 109 <130 mg/dL (calc) [facility] Comment: For patients with diabetes plus 1 major ASCVD risk factor, treating to a non-HDL-C goal of <100 mg/dL (LDL-C of <70 mg/dL) is considered a therapeutic option. Triglycerides 145 <150 mg/dL [facility] 03/26/2022 9:58 AM EDT Anabela Aguirre MD LAB BLOOD ORDERABLES Final Re sult Performing Organization Address [facility] Phone Number [facility] Critical access hospital [place] * HEPATITIS C ANTIBODY RFLX (11/24/2019 11:05 AM EST) Pathologist [facility] HEPATITIS C ANTIBODY NONREACTIVE NONREACTIVE [facility] Comment: Antibodies to HCV not detected; does not exclude early acute HCV infection. 11/24/2019 11:0 5 AM EST Anabela Aguirre MD HISTORICAL/NON ORDERABLE LABS Final Result Performing Organization Address [facility] Phone Number [facility] [address] * HIV AB/AG (11/24/2019 11:05 AM EST) Pathologist [facility] HIV AG/AB NONREACTIVE [facility] Comment: HIV-1 p24 Ag and/or HIV-1/HIV-2 Ab not detected. A test result that is nonreactive does not exclude the possibility of exposure to or infection with HIV-1 and/or HIV-2. Nonreactive results in this assay for individuals with prior exposure to HIV-1 and/or HIV-2 may be due to antigen and antibody levels that are below the limit of detection of this assay. The [employer] Coordinator HIV Ag/Ab Combo assay result and supplemental assay results should be interpreted in conjunction with the patient's clinical presentation, history and other laboratory results. If the results are inconsistent with clinical evidence, additional testing is suggested to confirm the result. 11/24/2019 11:0 5 AM EST us Anabela Aguirre MD HISTORICAL/NON ORDERABLE LABS Final Result [facility] Critical access hospital [facility] [address] from Last 3 Months or Most Recently Relevant to Health Maintenance Insurance C3 Care Teams Slotter Operator Helper Relationship Specialty Start Date End Date Maite Gorman CNP [address] [place] [phone] PCP - General Family Medicine 09/05/25
--- OUTSIDE RECORDS SUMMARY | 2025-09-05 13:21 | XMS_ITS | Encounter Summary ---
Author Organization [facility] Address [address] [place] [address] Care Team Providers Care Job Order Clerk Name Role Phone Physician, No Pcp Primary Care Provider Unavaila ble Encounter Details Date Type Department Care Team (Late Contact Info) Description 07/18/2025 Results Follow-Up [facility] - Maternity [address] [place] [address] Latoya Ni, [address] [phone] Social History Tobacco Use Types Packs/Day Years Used Date Smoking Tobacco: Never Smokeless Tobacco: Never Alcohol Use Standard Drinks/Week Comments Not Currently 0 (1 standard drink = 0.6 oz pur e alcohol) Comments Yes Sex and Gender Information Value Date Recorded Sex Assigned at Not on file Legal Sex Female 12:15 AM EST Gender Identity Not on file Sexual Orientation Not on file Occupation Industry Job Start Date Job End Date [employer] Not on file Not on file Not on file documented as of this encounter Plan of Treatment Upcoming Encounters Date Type Department Care Team (Late st Contact Info) Description 09/24/2025 1:30 PM EST Visit Obstetrics and Gynecology [address] [phone] Regina Whyte, GAGANDEEP [address] [place] [address] documented as of this encounter Visit Diagnoses Not on filedocumented in this encounter Care Teams Job Order Clerk Relationship Specialty Start Date End Date Physician, No Pcp PCP - General 02/23/25 documented as of this encounter
--- OUTSIDE RECORDS SUMMARY | 2025-09-05 13:21 | XMS_ITS | Encounter Summary ---
Author Organization [employer] Address [address] [facility] 7[address] [place] [address] Care Team Providers Care Nursing Technician Name Role Phone Maite Gorman ANGIE Primary Care Provider [phone] Encounter Details Date Type Department Care Team (Latest Contact Info) Description 09/05/2025 Travel Social History Tobacco Use Types Packs/Day Years Used Date Smoking Tobacco: Never Smokeless Tobacco: Never Depression Answer Date Recorded Patient Health Questionnaire-9 [...] AM EDT documented as of this encounter Functional Status * Over the [...] or on edge 0 09/05/2025 10:37 AM Sa alec Buckley [place] Not being able to stop or control worrying 0 09/05/2025 10:37 AM Sa alec Buckley [place] Worrying too much about different things 1 09/05/2025 10:37 AM Sa alec Buckley [place] Trouble relaxing 1 09/05/2025 10:37 AM Venita Buckley MA Being so restless that it is hard to sit still 0 09/05/2025 10:37 AM Sa alec Buckley [place] Becoming easily annoyed or irritable 0 09/05/2025 10:37 AM Sa alec Buckley [place] Feeling afraid as if somethi ng awful might happen 1 09/05/2025 10:37 AM Sa alec Buckley MA CANDACE-7 Total Score 3 09/05/2025 10:37 AM Venita Buckley MA documented as of this encounter Plan of Treatment Upcoming Encounters Date Type Department Care Team (Late st Contact Info) Description 09/26/2025 2:30 PM EST Office Visit [facility] MED & PEDS [address] [place] [address] Maite Gorman CNP [address] [place] [address] documented as of this encounter Visit Diagnoses Not on filedocumented in this encounter Additional Health Concerns Assessment Noted Time PHQ-9 Depression Total Score: 2 09/05/20 10:36 AM EST documented as of this encounter Care Teams Nursing Technician Relationship Specialty Start Date End Date Maite Gorman CNP [address] [place] [phone] PCP - General Family Medicine 09/05/25 documented as of this encounter
[2025-09-05 14:16] LABS: MANUAL DIFF FLAG NO
[2025-09-05 14:20] LABS: Hematocrit 43.6 % (37.0-47.0); Hemoglobin 15.1 g/dl (12.0-16.0); Imm Gran Abs Auto 0.05 X10*3/uL (0.00-0.03); Imm Gran Pct Auto 0.4 % (0.0-0.4); Lymphocytes Absolute Auto 3.5 X10*3/uL (1.2-4.9); Mean Corpuscular HGB Conc 34.6 g/dl (31.0-35.0); Mean Corpuscular Hemoglobin 31.9 pg (27.0-33.0); Mean Corpuscular Volume 92.0 fL (80.0-98.0); NRBC Abs Auto 0.000 X10*3/uL (0.0-0.012); NRBC Pct Auto 0.0 /100WBC (0.0-0.2); Platelet Count 297 X10*3/uL (160-400); Red Blood Count 4.74 X10*6/uL (4.20-5.50); White Blood Count 13.1 X10*3/uL (4.8-10.8)
[2025-09-05 15:39] LABS: Alanine Aminotransferase 19 U/L (0-31); Albumin Level 4.3 g/dL (3.5-5.0); Alkaline Phosphatase 127 U/L (39-117); Anion Gap 11 (12-20); Aspartate Amino Transferase 21 U/L (5-31); Blood Urea Nitrogen 10 mg/dL (9-16); Calcium 8.9 mg/dL (8.4-10.2); Carbon Dioxide 24 mmol/L (22-29); Chloride 112 mmol/L (96-108); Estimated Glomerular Filt Rate > 60; Potassium 4.0 mmol/L (3.3-5.1); Sodium 143 mmol/L (135-145); Total Protein 7.3 g/dL (6.5-8.0)
== END 2025-09-05 10:52 | disposition home or self-care (01) ==
LOC: HO.CHCLDS 10:51
DX: E66.811 Obesity, class 1 (principal); Z76.89 Persons encountering health services in other specified circumstances
CPT/HCPCS: 36415; 80048; 80076; 83036; 85025

== ENCOUNTER 2025-09-13 14:52 | Outpatient (AMB) | payer MEDICAID, SELFPAY ==
--- OUTSIDE RECORDS SUMMARY | 2025-09-10 14:00 | XMS_ITS | Encounter Summary ---
Author Organization [employer] Address [address] [facility] 7 [place] [address] Care Team Providers Care Special Effects Technician Name Role Phone GormanMaite ANGIE Primary Care Provider [phone] Reason for Referral * Consultation (Urgent) - Authorized Specialty Diagnoses / Procedures Referred By Mikaela t Referred To Contact General Surgery Diagnoses Abscess of axilla, left Daniel Rangel MD [address] [place] [address] Phone: tel: fax: [facility] General Surgeons [address] [place] [address] [address] [place], [place] Phone: tel: fax: Referral ID Status Reason Start Date Expiration Date Visits Requested Visits Authorized [id number] Authorized Specialty Services Required 09/11/2025 09/11/2026 12 12 Encounter Details Date Type Department Care Team (Late st Contact Info) Description 09/10/2025 2:00 PM EST Office Visit [facility] [address] [place] [address] Daniel Rangel MD [address] [place] [address] Abscess of axilla, left (Primary Dx) Social History Tobacco Use Types Packs/Day Years [...] Sign Reading Time Taken Comments Blood Pressure 128/82 09/10/2025 2:30 PM EST Pulse 112 09/10/2025 2:30 PM EST Temperature 36.8 C (98.3 F) 09/10/2025 2:30 PM EST Respiratory Rate 18 09/10/2025 2:30 PM EST Oxygen Saturation 99% 09/10/2025 2:30 PM EST Inhaled Oxygen Concentration - - Weight 77.7 kg (171 lb 3.2 oz) 09/10/2025 2:30 P M EST Height 157.5 cm (5' 2 ) 09/10/2025 2:30 PM EST Body Mass Index 31.31 09/10/2025 2:30 PM EST documented in this encounter Progress Notes * Daniel Rangel MD - 09/10/2025 2:00 PM EST Images from the original note were not included. Rita Le is a 25 y.o. female who presents for a acute visit. HPI Left Axillary abscess - Onset approximately 3 weeks ago - 2 abscess noted on left axilla, one in the middle, and a smaller one developing - Significant redness initially, now less red - Pain associated with abscess, managed with ibuprofen 800 mg as needed - Middle cyst drained at urgent care on September 07, 2025; drainage was light yellow to whitish - Cephalexin prescribed at urgent care, started 09/07/2025; currently on day 4 of a 7-day course - Gauze and bandage dressing provided at urgent care, instructed to remove after 24-48 hours - No Breast tenderness; axillary tenderness noted on the side of the lower cyst - Difficulty due to pain, missed a feeding yesterday Systemic Symptoms - Denies- Cough, sore throat, GI symptoms, body aches, malaise, headache, fever, fatigue, Problem List[1] Allergies[2] Review of Systems Constitutional: Positive for activity change. Negative for chills, diaphoresis, fatigue and fever. HENT: Negative. Negative for sneezing and sore throat. Respiratory: Negative for cough. Skin: Positive for color change. Negative for rash. Abscess to the left axilla Vitals: 09/10/25 1430 BP: 128/82 BP Location: Left arm Patient Position: Sitting BP Cuff Size: Adult Pulse: (!) 112 Resp: 18 Temp: 98.3 ??F (36.8 ??C) TempSrc: Temporal SpO2: 99% Weight: 171 lb 3.2 oz (77.7 kg) Height: 5' 2 (1.575 m) Physical Exam Constitutional: General: She is awake. She is in acute distress. Appearance: She is not ill-appearing or diaphoretic. HENT: Head: Normocephalic. Lymphadenopathy: Upper Body: Left upper body: No axillary adenopathy. Skin: General: Skin is warm. Comments: Examination of the left axillary region shows an abscess with mild erythema. Measurement 4 cm in width and 3 cm in length. Neurological: Mental Status: She is alert. Psychiatric: Behavior: Behavior is cooperative. Assessment & Plan Abscess of axilla, left - 2 abscess present in the left axillary and adjacent regions, with associated erythema and pain. One cyst previously drained at urgent care. Additional abscess noted, with one currently large and another developing. Switch from Cephalexin to Doxycyline 100 mg twice a day for 7 days She is breast feeding small amounts along with using formula- continue to pump, she would prefer todiscard the breast milk for the next 7 days - Continue with the use of the warm compress - Dr. Rangel contacted general surgery and got her appointment at [facility] on 09/13/25 at 3:15 pm and Rita in agreement. Current Medications[3] No follow-ups on file. [facility] LINE WELDER Attestation LINE WELDER Resident Attestation: Patient was seen and evaluated by Cindy MCCLELLAND, in collaboration with Daniel Rangel MD who has reviewed my assessment and plan. I, Daniel Rangel MD , have reviewed the resident's note and agree with the assessment & plan of care as documented above. This note was drafted using Ambient (AI) technology. The patient/patient's guardian has been informed and has consented to the use of this technology: Yes [1] Patient Active Problem List Diagnosis Acne Back pain Chlamydia infection during Class 1 obesity Elevated glucose tolerance test Encounter for supervision of normal first in first trimester premature rupture of membranes (PPROM) with unknown onset of labor PROM (premature rupture of membranes) Rubella non-immune status, antepartum Urinary tract infection in mother during first trimester of [2] No Known Allergies [3] Current Outpatient Medications: acetaminophen (Tylenol) 500 MG tablet, TAKE 2 TABLETS BY MOUTH EVERY 6 HOURS FOR PAIN, Disp: , Rfl: aspirin 81 MG EC tablet, Take 81 mg by mouth Once per day., Disp: , Rfl: docusate sodium (Colace) 100 MG capsule, Take 100 mg by mouth., Disp: , Rfl: doxycycline (Vibra-Tabs) 100 MG tablet, Take 1 tablet (100 mg) by mouth 2 times daily for 7 days. Take with a full glass of water and do not lie down for at least 30 minutes after., Disp: 14 tablet, Rfl: 0 ergocalciferol (Vitamin D-2) 1.25 MG (35908 UT) capsule, take 1 capsule by oral route every week x 15 weeks, Disp: , Rfl: Ferrous Sulfate (IRON PO), Take 1 tablet by mouth Once per day., Disp: , Rfl: ibuprofen 600 MG tablet, Take 1 tablet (600 mg) by mouth every 8 (eight) hours if needed for mild pain for up to 10 days., Disp: 30 tablet, Rfl: 0 ibuprofen 800 MG tablet, Take 800 mg by mouth., Disp: , Rfl: multivitamin () 27-0.8 MG tablet, Take 1 tablet by mouth Once per day., Disp: , Rfl: documented in this encounter Plan of Treatment Upcoming Encounters Date Type Department Care Team (Late st Contact Info) Description 09/26/2025 2:30 PM EST Office Visit [facility] [address] [place], [place] [phone] Maite Gorman CNP [address] [place] [address] Scheduled Referrals Name Type Priority Associated Diagnoses Orde r Schedule Referral to General Surgery Outpatient Referral Urgent Abscess of axilla, left Expected: 09/10/2025 (Approximate), Expires: 09/10/2026 documented as of this encounter Visit Diagnoses Diagnosis Abscess of axilla, left- Primary documented in this encounter Additional Health Concerns Assessment Noted Time PHQ-9 Depression Total Score: 2 09/05/20 25 10:36 AM EST documented as of this encounter Care Teams Special Effects Technician Relationship Specialty Start Date End Date Maite Gorman CNP [address] [place] [address] PCP - General Family Medicine 09/05/25 documented as of this encounter
--- NOTE | 2025-09-13 14:53 | A.OFFVIS_ITS ---
Vital Signs 3 09/13/25 15:02 Height 5 ft 2 in Weight 175 lb BMI 32.0 BP 134/74 Blood Pressure Location Rt brachial Position Sitting Pulse 78 Intake Visit Reasons: Abscess~ Lt axilla Intake Note: Patient referred by PCP Dr. Rangel for abscess on Lt axilla. Patient c/o: draining, yellowish discharge. On Doxycycline 100mg bid. Collections Attorney Required: No Progressive Care Unit Registered Nurse: Progressive Care Unit Registered Nurse Present Accompanied by: boyfriend AJ Allergies No Known Allergies Allergy (Verified 09/13/25 14:58) Medication List - Last Reconciled 09/13/25 by Fidel Grubbs MD doxycycline hyclate 150 mg PO BID sulfamethoxazole-trimethoprim 400-80 mg 1 tab PO BID HPI Comments Details: Patient reports several day history of pain and discharge from her left axillary region. She goes on to say that she has been taking oral antibiotics for the greater part of a week in? it seems to be getting better?. She goes on to say ?I can put my arm down now?. She denies any systemic fevers chills nausea or vomiting. She is tolerating her antibiotics well. [facility] Surgical History (Updated 09/13/25 @ 14:59 by ABE Alfredo) Status post breast reduction Family History (Updated 09/13/25 @ 15:00 by ABE Alfredo) Paternal Grandmother Diabetes Father Diabetes Social History (Updated 09/13/25 @ 15:00 by ABE Alfredo) Patient Tobacco Use Status: Never used Tobacco Review of Systems Const All systems reviewed & are unremarkable except as noted in HPI and below Physical Exam Vital Signs: Last Vital Signs Pulse 78 09/13/25 15:02 BP 134/74 09/13/25 15:02 BMI result Body Mass Index 32.0 Const Orientation/consciousness: oriented to person, oriented to place and oriented to time HEENT Head: Yes normal to inspection, Yes normocephalic and Yes atraumatic Eyes General: appearance normal, both eyes and all related structures Neck Neck: Yes normal visual inspection Chest Chest/axillae images: 2 1. Largely drained abscess cavity without palpable fluid collection, minimal surrounding erythema 2. Small (1cm by -.5cm) abscess pocket without drainage Resp Effort & Inspection: normal respiratory effort and able to speak in complete sentences Cardio Rate: regular rate Rhythm: regular rhythm GI Inspection: Yes normal to inspection Back/Spine/Pelvis Thoracic/Lumbar Spine: thoracic and lumbar spine normal to inspection Neuro General: oriented to person, oriented to place and oriented to time Assessment & Plan Assessment & Plan (1) Abscess of axillary region: Code(s): L02.419 - Cutaneous abscess of limb, unspecified Category: Medical Plan: I reviewed with the patient her options. She has 2 discrete abscesses in her left axilla the superior 1 has largely drain on its own and I do not feel there is any utility in trying to incise anything else for drainage purposes. The inferior 1 has a small pocket of most likely purulence under the skin. I offered her incision and drainage to try and expedite the healing process. She declined as she is ?feeling a lot better?. She wishes to pursue antibiotic therapy. I told her I felt that was reasonable since the pocket was so small. I encouraged her to pursue hot showers twice a day to the area, local hygiene in continue antibiotic therapy. She has agreed to come back and see us next week. She has also agreed to contact us should she have any questions or problems. Medications: New 2 doxycycline hyclate 150 mg PO BID 14 tabs 0RF sulfamethoxazole-trimethoprim 400-80 mg 1 tab PO BID 30 tabs 2RF Coding Level of Care Code New Pt Level 3 (38503) Diagnoses Abscess of axillary region L02.419 Time Spent (min) 30 Comment Patient visit, record review and coordination of care time
[2025-09-13 15:02] VITALS: BP 134/74; PULSE 78; BMI 32.0
--- OUTSIDE RECORDS SUMMARY | 2025-09-13 20:58 | XMS_ITS | Encounter Summary ---
Author Organization [employer] Address [address] [place] [address] Care Team Providers Care Hydraulic Jack Mechanic Name Role Phone Anabela Aguirre MD Primary Care Provider Maite Gorman CNP Primary Care Provider [phone] Encounter Details Date Type Department Care Team (Late Contact Info) Description 12/16/2022 Telephone Family Medicine [address] [place] [address] Anabela Aguirre MD [address] [place] [address] Social History Tobacco Use Types Packs/Day Years [...] Description 09/26/2025 2:30 PM EST Office Visit [facility] CH[facility] MED & PEDS [address] [place] [address] Maite Gorman CNP [address] [place] [address] documented as of this encounter Visit Diagnoses Not on filedocumented in this encounter Care Teams Hydraulic Jack Mechanic Relationship Specialty Start Date End Date Anabela Aguirre MD [address] [place] [address] PCP - General Family Medicine 10/11/18 06/19/24 Maite Gorman CNP [address] [place] [phone] PCP - General Family Medicine 09/05/25 documented as of this encounter
--- OUTSIDE RECORDS SUMMARY | 2025-09-13 20:58 | XMS_ITS | Encounter Summary ---
Author Organization [employer] Address [address] [place] [address] [address] [address] Care Team Providers Care Research Methodologist Name Role Phone Anabela Aguirre MD Primary Care Provider [phone] Maite Gorman CNP Primary Care Provider [phone] Reason for Visit * Reason Onset Date Comments Appointment Request 11/26/2023 Encounter Details Date Type Department Care Team ([facility] Contact Info) Description 11/26/2023 Telephone [facility] MEDICINE [address] [place], [place] [phone] Anabela Aguirre MD [address] [place], [place] [phone] Appointment Request Social History Tobacco Use Types [...] Upcoming Encounters Date Type Department Care Team ([facility] Contact Info) Description 09/26/2025 2:30 PM EST Office Visit [facility] CHC MED & PEDS [address] [place], [place] [phone] Maite Gorman CNP [address] [place] [address] documented as of this encounter Visit Diagnoses Not on filedocumented in this encounter Care Teams Research Methodologist Relationship Specialty Start Date End Date Anabela Aguirre MD [address] [place] [address] PCP - General Family Medicine 10/11/18 06/19/24 Maite Gorman CNP [address] [place] [address] PCP - General Family Medicine 09/05/25 documented as of this encounter
--- OUTSIDE RECORDS SUMMARY | 2025-09-13 21:03 | XMS_ITS | Encounter Summary ---
Author Organization [facility] Address [address] [place] [address] Care Team Providers Care Char Filter Operator Name Role Phone Physician, No Pcp Primary Care Provider Unavaila ble Encounter Details Date Type Department Care Team (Late Contact Info) Description 07/18/2025 Results Follow-Up [facility] - Maternity [address] [place] [address] Latoya Ni, [address] [phone] Social History Tobacco Use Types Packs/Day Years [...] Industry Job Start Date Job End Date [employer] Not on file Not on file Not on file documented as of this encounter Plan of Treatment Upcoming Encounters Date Type Department Care Team (Late st Contact Info) Description 09/24/2025 1:30 PM EST Visit Obstetrics and Gynecology [address] [phone] Regina Whyte, GAGANDEEP [address] [place] [address] documented as of this encounter Visit Diagnoses Not on filedocumented in this encounter Care Teams Char Filter Operator Relationship Specialty Start Date End Date Physician, No Pcp PCP - General 02/23/25 documented as of this encounter
--- OUTSIDE RECORDS SUMMARY | 2025-09-13 21:03 | XMS_ITS | Clinical Summary ---
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 02/28/2025 Active docusate sodium (Colace) 100 MG capsule Take 100 mg by mouth. 08/16/2025 Active ergocalciferol (Vitamin D-2) 1.25 MG (14370 UT) capsule take 1 capsule by oral [...] up to 10 days. 30 tablet 09/05/2025 Active doxycycline (Vibra-Tabs) 100 MG tablet Take 1 tablet (100 mg) by mouth 2 times daily for 7 days. Take with a full glass of water and do not lie down for at least 30 minutes after. 14 tablet 09/10/2025 Active Active Problems Problem Noted Date Diagnosed [...] trimester 02/28/2025 Overview (09/03/2025): 1. [facility] [address] [place] [phone] ([phone]) 2. Delivery site: [facility] 3. Mobile Mommas: 4. Dating criteria: LMP [...] Encounters Date Type Department Care Team Description 09/10/2025 2:00 PM EST Office Visit [address] [address] Name, MD Daniel Abscess of axilla, left (Primary Dx) 09/10/2025 Travel 09/10/[address] [address] Maite Gorman CNP Nurse Triage 09/05/2025 9:00 AM EST Office Visit [facility] MED & PEDS [address] [place], [place] [phone] Maite Gorman CNP Encounter to establish care with new provider (Primary Dx); Class 1 obesity; Breast pain; Encounter for allergy testing 09/05/2025 Travel 09/03/2025 Telephone [facility] MED & PEDS [address] [place] [address] Venita Beck MA chart prep 08/28/2025 Patient Outreach [address] [address] Maite Gorman CNP Pre-visit Planning (SDOH Screening negative and Tobacco screening negative) 07/31/2025 Population Health Risk Score [facility] Department [address] [phone] Provider, Population Health Generic 07/23/2025 Telephone [facility] INS ENROLLMENT [address] [place] [phone] Suha Bello MD 07/19/2025 Telephone [place] [address] [place] [address] Phong Jimenez MD 07/17/2025 Telephone [facility] MEDICINE [address] [place] [address] Phong Jimenez MD CHW - New Patient [...] Mass Index 31.31 09/10/2025 2:30 PM EST Plan of Treatment Upcoming Encounters Date Type Department Care Team (Late st Contact Info) Description 09/26/2025 2:30 PM EST Office Visit [facility] CHC MED & PEDS [address] [place] [address] Maite Gorman, ANGIE [address] [place], [place] [phone] Health Maintenance Due Date Last Done Comments Hepatitis A Vaccines (2 of 2 - 2-dose series) 07/31/2015 01/29/2015 Family Planning (PISQ) 2016 COVID-19 Vaccine ( - season) 2025 Influenza Vaccine (#1) 2025 11/14/2012 SDOH Screening 08/28/2026 08/28/2025 Alcohol/Substance Use Screening 09/05/2026 09/05/2025 Depression Screening 09/05/2026 09/05/2025, 09/05/20 25 Disability Screening 09/05/2026 09/05/2025 Tobacco Screening 09/10/2026 09/10/2025 Lipid Panel 03/26/2027 03/26/2022 Pap Smear 03/11/2028 [...] Procedure Name Priority Date/Time Associated Diagnosis Comments HEMOGLOBIN A1C Routine 09/05/2025 10:56 AM EST Class 1 obesity HEPATIC FUNCTION PANEL Routine 09/05/2025 10:56 AM EST Encounter to establish care with new provider Class 1 obesity BASIC METABOLIC PANEL Routine 09/05/2025 10:56 AM EST Encounter to establish care with new provider Class 1 obesity CBC WITH AUTO DIFFERENTIAL Routine 09/05/2025 10:56 AM EST Encounter to establish care with new provider Class 1 obesity LIPID PANEL, STANDARD Routine 03/26/2022 9:58 AM EDT [facility] HISTORICAL HEPATITIS C ANTIBODY RFLX Routine 11/24/2019 11:05 AM EST [facility] HISTORICAL HIV AB/AG Routine 11/24/2019 11:05 AM EST from Last 3 Months or Most Recently Relevant to Health Maintenance Results * (ABNORMAL) CBC auto differential (09/05/2025 10:56 AM EST) White Blood Count 13.1(H) 4.8 - 10.8 X10*3/uL [facility] Red Blood Count 4.74 4.20 - 5.50 X10*6/uL [facility] Hemoglobin 15.1 12.0 - 16.0 g/dl [facility] Hematocrit 43.6 37.0 - 47.0 % [facility] Mean Corpuscular Volume 92.0 80.0 - 98.0 fL [facility] Mean Corpuscular Hemoglobin 31.9 27.0 - 33.0 pg [facility] Mean Corpuscular HGB Conc 34.6 31.0 - 35.0 g/dl [facility] Red Cell Distribution Width 11.9 11.0 - 16.0 % [facility] Platelet Count 297 160 - 400 X10*3/uL [facility] Mean Platelet Volume 10.4 9.4 - 12.3 fL [facility] Neutrophils Percent Auto 64.4 45 - 73 % [facility] Imm Gran Pct Auto 0.4 0.0 - 0.4 % [facility] Lymphocytes Percent Auto 26.8 20 - 40 % [facility] Monocytes Percent Auto 5.6 2 - 11 % [facility] Eosinophils Percent Auto 2.1 0 - 4 % [facility] Basophils Percent Auto 0.7 0 - 2 % [facility] NRBC Pct Auto 0.0 0.0 - 0.2 /100WBC [facility] Neutrophils Absolute Auto 8.4(H) 2.0 - 8.3 x10*3/uL [facility] Imm Gran Abs Auto 0.05(H) 0.00 - 0.03 X10*3/uL [facility] Lymphocytes Absolute Auto 3.5 1.2 - 4.9 X10*3/uL [facility] Monocytes Absolute Auto 0.7 0.1 - 1.2 X10*3/uL [facility] Eosinophils Absolute Auto 0.3 0.0 - 0.4 X10*3/uL [facility] Basophils Absolute Auto 0.1 0.0 - 0.2 X10*3/uL [facility] NRBC Abs Auto 0.000 0.0 - 0.012 X10*3/uL [facility] Blood Venous blood specimen / Unknown 09/05/2025 10:56 AM EST 09/05/2025 2:15 PM EST Dougjuana Gorman 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 Blood transfusions may impact the HbA1c concentration in the patient sample. Estimated Average Glucose 103 mg/dL [facility] Comment:eAG = Estimated ave rage glucose which is %A1C expressed asaverage glucose, using the formula of the [id number] Glucose study (ADAG), Diabetes Care, Vol.31,#8,May. 2007 Blood Venous blood specimen / Unknown 09/05/2025 10:56 AM EST 09/05/2025 2:15 PM EST [facility] LAB BLOOD ORDERABLES Geno l Result Performing Organization Address [facility] de Phone Number [facility] [address] [place] [phone] * (ABNORMAL) Hepatic Function Panel (09/05/2025 10:56 AM EST) Bilirubin, Total 0.6 0.0 - 1.0 mg/dL [facility] Bilirubin, Direct 0.2 0.0 - 0.5 mg/dL [facility] Aspartate Amino Transferase 21 5 - 31 U/L [facility] Alanine Aminotransferase 19 0 - 31 U/L [facility] Total Protein 7.3 6.5 - 8.0 g/dL [facility] Albumin Level 4.3 3.5 - 5.0 g/dL [facility] Alkaline Phosphatase 127(H) 39 - 117 U/L [facility] Blood Venous blood specimen / Unknown 09/05/2025 10:56 AM EST 09/05/2025 2:16 PM EST [facility] LAB BLOOD ORDERABLES Geno l Result Performing Organization Address [facility] de Phone Number [facility] [address] [place] [phone] * (ABNORMAL) Basic Metabolic Panel (09/05/2025 10:56 AM EST) Pathologist [facility] Sodium 143 135 - 145 mmol/L [facility] Potassium 4.0 3.3 - 5.1 mmol/L [facility] Chloride 112(H) 96 - 108 mmol/L [facility] Carbon Dioxide 24 22 - 29 mmol/L [facility] Anion Gap 11(L) 12 - 20 [facility] Urea Nitrogen (BUN) 10 9 - 16 mg/dL [facility] Creatinine, Serum 0.65 0.5 - 1.4 mg/dL [facility] Estimated Glomerular Filt Rate >60 [facility] Comment:Chronic Kidney Disea se: Estimated GFR < 60 mL/min/1.58r5Wmfusr Kidney Disease: Estimated GFR < 15 mL/min/1.73m2 Glucose 76 60 - 115 mg/dL [facility] Calcium 8.9 8.4 - 10.2 mg/dL [facility] Blood Venous blood specimen / Unknown 09/05/2025 10:56 AM EST 09/05/2025 2:16 PM EST [facility] LAB BLOOD ORDERABLES Geno danny Result [facility] [address] [place] [phone] * (ABNORMAL) LIPID PANEL, STANDARD (03/26/2022 9:58 AM EDT) Pathologist [facility] Chol/HDLC Ratio 3.8 <5.0 (calc) [facility] Cholesterol, Total 148 <200 mg/dL [facility] HDL Cholesterol 39(L) > OR = 50 mg/dL [facility] LDL Cholesterol 84 mg/dL (calc) [facility] Comment: Reference range: <100 Desirable range <100 mg/dL for primary prevention; <70 mg/dL for patients with CHD or diabetic patients with > or = 2 CHD risk factors. LDL-C is now calculated using the Rito calculation, which is a validated novel method providing better accuracy than the Friedewald equation in the estimation of LDL-C. Jose R SS et al. RAJEEV. 2013;310(19): 8185-8134 (http://education.[employer] Medical.GreenLight/faq/LFU899) Non-HDL Cholesterol 109 <130 mg/dL (calc) [facility] Comment: For patients with diabetes plus 1 major ASCVD risk factor, treating to a non-HDL-C goal of <100 mg/dL (LDL-C of <70 mg/dL) is considered a therapeutic option. Triglycerides 145 <150 mg/dL [facility] 03/26/2022 9:58 AM EDT Anabela Aguirre MD LAB BLOOD ORDERABLES Final Re sult Performing Organization Address [facility] Phone Number [facility] [address] * HEPATITIS C ANTIBODY RFLX (11/24/2019 11:05 AM EST) Pathologist [facility] HEPATITIS C ANTIBODY NONREACTIVE NONREACTIVE [facility] Comment: Antibodies to HCV not detected; does not exclude early acute HCV infection. 11/24/2019 11:0 5 AM EST Anabela Aguirre MD HISTORICAL/NON ORDERABLE LABS Final Result Performing Organization Address [facility] [address] [facility] [place] [address], * HIV AB/AG (11/24/2019 11:05 AM EST) HIV AG/AB NONREACTIVE [facility] [...] of detection of this assay. The [facility] HIV Ag/Ab Combo assay result and supplemental assay results should be interpreted in conjunction with the patient's clinical presentation, history and other laboratory results. If the results are inconsistent with clinical evidence, additional testing is suggested to confirm the result. 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
--- OUTSIDE RECORDS SUMMARY | 2025-09-13 21:03 | XMS_ITS | Clinical Summary ---
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 [place] site: [facility] ([facility]): [address] [place] [phone] ([phone]) 2. Delivery site: [facility] 3. Mobile Mommas: 4. Dating criteria: [...] Description 08/15/2025 Telephone Obstetrics and Gynecology - [address] [phone] Wendy Brown RN 08/12/2025 8:16 AM EST - 08/12/2025 10:37 AM EST Hospital Encounter [facility] - Maternity [address] [place] [address] Shahid Davidson MD Discharge Disposition: Another Health Care Institution Not Defined 08/08/2025 1:00 PM EDT Routine Obstetrics & Gynecology [address] [phone] Kat Albright CNM Encounter for supervision of normal first in third trimester (Primary Dx); 33 weeks gestation of 07/26/20[address] [phone] Regina Whyte CNM 07/25/2025 1:15 PM EDT Routine Obstetrics & Gynecology [address] [phone] Kat Albright CNM Encounter for supervision of normal first in third trimester (Primary Dx); Bilateral sciatica; 31 weeks gestation of 07/18/2025 Results Follow-Up [address] [phone] Latoya Ni CNM 07/17/2025 11:00 AM EDT Ancillary Procedure Maternal Medicine - [address] [phone] Vaginal bleeding in , third trimester; 30 weeks gestation of ; Obesity complicating in third trimester 07/17/2025 Tele[address]etrics [address] [phone] Regina Whyte CNM 07/15/[address] [address] Latoya Ni CNM 07/11/2025 1:00 PM EDT Routine Obstetrics & [address] [address] Kat Albright CNM Encounter for supervision of normal first in third trimester (Primary Dx); Acute right-sided low back pain with right-sided sciatica; 29 weeks gestation of from Last 3 Months [...] Industry Job Start Date Job End Date [employer] Not on file Not on file Not on file Obstetrics History Para Term AB IAB SAB Ectopic Multiple Livin g Live Births 1 1 0 1 0 0 1 1 Date Outcome GA Total Labor Labor/2nd/3rd Weight Sex Type Anes PTL Patsy A1 A5 Name Clin 025 34w 1d 2732 g (96.4 oz) M Y Living Delivery Location:[facility] Summary Episode Dates Number of Fetuses Estimated Date of Delivery 02/28/2025 - Present (09/13/2025) 1 09/24/2025 (set by Bhavna Avlarez RN on 02/28/2025 based on Last Menstrual Period on 12/18/2024 (Within Days)) Dating Summary Based On MAXIMILIANO GA Diff Last Menstrual Period on 12/18/2024 (Within Days ) 09/24/2025 Working Ultrasound on 02/23/2025 09/27/2025 -3d GA:9w1d Alternate MAXIMILIANO Entry 09/24/2025 Same Comment:Date entered prior t o episode creation Vitals Pregravid Weight Height TWG (As of 09/13/2025) Pregrav id BMI 72.1 kg (159 lb) 1.575 m (62 ) 11.5 kg (25 lb 6.4 oz) 29.07 Date GA Fund Present FHR Mvmt BP Weight Edema Alb Glu Ket Dil/ Eff/Sta 5 33w6d Inpatient data not displayed here. See [...] is A Positive. She presented to the [facility] triage accompanied by her partner, complaining [...] Hours: BP Min: 131/83 Min taken time: 08/12/25 0820 Max: 131/83 Max taken time: 08/12/25 0820 Temp Av.1 C (97 F) Min: 36.1 [...] with Dr. Carbajal- Transfer process started to [facility] Kat Albright CNM I reviewed patients record and assisted with her evaluation. I agree with the above note. Patient is being transferred to [facility]. 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 Also [...] Pre - 07/25/2025 - GA:31w2d 07/25/2025 - - Kat Albright CNM OB Visit: [...] 07/25/2025 at 1:53 PM EDT 07/25/2025 - - Baron Son MA Ob f/up Progress Notes - Routine Pre tree - 07/11/2025 - GA:29w2d 07/11/20252d - Baron Son MA The patient acknowledges [...] pertussis vaccination: YES Denies history of Guillain [place] Syndrome.or any type of seizure disorder. YES [...] Tdap vaccine administered IM. See Imm/Inj tab 07/11/20252d - Kat Albright CNM OB Visit: Vitals [...] 07/11/2025 at 1:49 PM EDT 07/11/2025 - w2d - Baron Son MA Pt here for ob f/up 1hr gtt done 06/25/25: 153 3hr gtt done 07/03/25: normal EPDS: 8 Routine from 07/11/2025 in Obstetrics & Gynecology [facility] with Kat Albright CNM 07/11/[address] Depression Scale: In the Past 7 Days [...] myself has occurred to me. Never Never Lane Depression Scale Total 8 8 Progress Notes - Routine Pre - 06/13/2025 - GA:25w2d 06/13/2025 - w - Kat Albright CNM OB Visit: Vitals [...] 06/13/2025 at 2:42 PM EDT 06/13/2025 - 2d - Baron Son MA Ob f/up Progress Notes - Routine Pre - 05/09/2025 - GA:20w2d 05/09/2025 - - [...] 05/09/2025 at 11:00 AM EDT 05/09/2025 - wmile - Baron Son MA Ob f/up Progress Notes - Routine Pre - 04/12/2025 - GA:16w3d 04/12/2025 - - Riana Figueroa CNM OB Visit: Vitals [...] gonorrhoeae molecular study Alpha fetoprotein, maternal Riana Figueroa CNM on 04/12/2025 at 9:17 AM EDT 04/12/2025 - josé antonio - Baron Son MA Ob f/up w/ WILLAM Pos Ch on 03/14/25 Progress Notes - Initial Pre tree - 03/14/2025 - GA:12w2d 03/14/2025 - - Riana Figueroa CNM OB 12 week [...] the first trimester and how to contact information security provider. Discussed the benefits of breast feeding [...] y.o. old female at 10w2d. This is [place]. The patient feels happy about the . [...] to the above questions, is this for sikh reasons? N/A Do you know what your [...] of estimated date of delivery No Thalassemia (Cuban, Iranian, Mediterranean, or background): MCV less than 80 No Neural tube defect (Meningomyelocele, Spina bifida, or Anencephaly) No Congenital heart defect No Down syndrome No Karson-Sachs (Ashkenazi Mu-Ism, Cajun, Somali Bulan) No Ilan disease (Ashkenazi Mu-Ism) No Familial dysautonomia (Ashkenazi Mu-Ism) No Sickle cell disease or trait () No Hemophilia or other blood disorders No Muscular dystrophy No Cystic fibrosis No [place]'s chorea No Intellectual disability and/or autism Yes, [...] boxes, smoking, drug and alcohol use during Madide Alcazar has also been informed of the neuropsychology service director provider recommendation for first trimester nuchal lucency testing to be performed during her . Maddie Alcazar has also been made aware of the time sensitive nature for this testing to be completed. . The patient now has a gestational age of 10w2d. The patient has agreed that she does want nuchal lucency testing. Ethnicity Based Genetic Testing has been reviewed and the Tucker Blair information sheet has been provided to the [...] For Horizon Carrier Screening, if patient has [employer], [employer]) or [employer] insurances: Not Applicable Electronically signed by: Bhavna [...] 1:30 PM EST Visit Obstetrics and Gynecology [address] [phone] Regina Whyte, GAGANDEEP [address] [place] [address] Health Maintenance Due Date Last Done Comments [...] reflex microscopic (08/12/2025 9:06 AM EST) Specific [place] Urine 1.018 1.003 - 1.030 LAB URINALYSIS - AUTOMATED METHOD 08/12/2025 9:32 AM [facility] pH, Urine 6.0 5.0 - 8.0 pH LAB URINALYSIS - AUTOMATED METHOD 08/12/2025 9:32 AM [facility] Leukocytes, Urine Small(A) Negative LAB URINALYSIS - AUTOMATED METHOD 08/12/2025 9:32 AM [facility] Nitrite, Urine Negative Negative LAB URINALYSIS - AUTOMATED METHOD 08/12/2025 9:32 AM [facility] Protein, Urine Trace <=Trace mg/dL LAB URINALYSIS - AUTOMATED METHOD 08/12/2025 9:32 AM [facility] Glucose, Urine Negative Negative mg/dL LAB URINALYSIS - AUTOMATED METHOD 08/12/2025 9:32 AM [facility] Ketones, Urine Negative Negative mg/dL LAB URINALYSIS - AUTOMATED METHOD 08/12/2025 9:32 AM [facility] Urobilinogen, Urine 1.0 0.2 - 1.0 mg/dL LAB URINALYSIS - AUTOMATED METHOD 08/12/2025 9:32 AM [facility] Bilirubin, Urine Negative Negative LAB URINALYSIS - AUTOMATED METHOD 08/12/2025 9:32 AM [facility] Blood, Urine Negative Negative LAB URINALYSIS - AUTOMATED METHOD 08/12/2025 9:32 AM [facility] RBC, Urine 2.0 0 - 4 /HPF LAB URINALYSIS - AUTOMATED METHOD 08/12/2025 9:32 AM [facility] WBC, Urine 4.3(H) 0 - 4 /HPF LAB URINALYSIS - AUTOMATED METHOD 08/12/2025 9:32 AM [facility] Squamous Epithelial, Urine 71(H) 0 - 60 /LPF LAB URINALYSIS - AUTOMATED METHOD 08/12/2025 9:32 AM [facility] Bacteria, Urine Negative Negative /HPF LAB URINALYSIS - AUTOMATED METHOD 08/12/2025 9:32 AM [facility] Hyaline Casts, Urine 2.0 0 - 3 /LPF LAB URINALYSIS - AUTOMATED METHOD 08/12/2025 9:32 AM [facility] Urine Urine specimen obtained by clean catch procedure / Unknown Non-blood Collection / Unknown 08/12/2025 9:06 AM EST 08/12/2025 9:20 AM EST us Shahid Davidson MD LAB URINE ORDERABLES Fi nal Result [facility] [address] [place] [address], * Drug abuse screen 8a panel, urine (08/12/2025 9:06 AM EST) [facility] Amphetamine Screen, Ur Negative Negative LAB CHEMISTRY METHOD 08/12/2025 9:42 AM [facility] Comment:Certain OTC medicati ons containing ephedrine, phenylephrine, pseudoephedrine and phenylpropanolamine can cause false positive results. Barbiturate Screen, Ur Negative Negative LAB CHEMISTRY METHOD 08/12/2025 9:42 AM [facility] Benzodiazepine Screen, Ur Negative Negative LAB CHEMISTRY METHOD 08/12/2025 9:42 AM [facility] Cocaine Screen, Ur Negative Negative LAB CHEMISTRY METHOD 08/12/2025 9:42 AM [facility] Opiate Screen, Ur Negative Negative LAB CHEMISTRY METHOD 08/12/2025 9:42 AM [facility] Cannabinoid (THC) Screen, Ur Negative Negative LAB CHEMISTRY METHOD 08/12/2025 9:42 AM [facility] Comment:Specimens from patie nts taking pantoprazole sodium (Protonix) have been shown to produce false positive results. Oxycodone Screen, Ur Negative Negative LAB CHEMISTRY METHOD 08/12/2025 9:42 AM [facility] Fentanyl, Ur Negative Negative LAB CHEMISTRY METHOD 08/12/2025 9:42 AM [facility] Urine Urine specimen obtained by clean catch procedure / Unknown Non-blood Collection / Unknown 08/12/2025 9:06 AM EST 08/12/2025 9:19 AM EST Narrative [facility] - 08/12/2025 9:42 AM EST [...] ORDERABLES Fi nal Result Performing Organization Address City/[facility]/ZIP Co de Phone Number [facility] [address] [place] [address], [place] [phone] * Trichomonas vaginalis antigen (08/12/2025 9:06 AM EST) Trichomonas vaginalis Negative Negative 08/12/2025 9:49 AM EST [facility] Swab Vaginal structure / Unknown Non-blood Collection / Unknown 08/12/2025 9:06 AM EST 08/12/2025 9:20 AM EST Shahid Davidson MD LAB MICROBIOLOGY - GENE RAL ORDERABLES Final Result Performing Organization Address [facility]/ZIP Co de Phone Number [facility] [address] [place] [address], [place] [phone] * Chlamydia trachomatis and Neisseria gonorrhoeae molecular study (08/12/2025 9:06 AM EST) Neisseria gonorrhoeae PCR Negative Negative LAB MOLECULAR DIAGNOSTICS METHOD 08/12/2025 3:01 PM EST [facility] Chlamydia trachomatis PCR Negative Negative LAB MOLECULAR DIAGNOSTICS METHOD 08/12/2025 3:01 PM EST [facility] Swab Cervix uteri structure / Unknown Non-blood Collection / Unknown 08/12/2025 9:06 AM EST 08/12/2025 9:20 AM EST Shahid Davidson MD LAB MICROBIOLOGY - GENE RAL ORDERABLES Final Result [facility] [address] [place] [address], [place] [phone] * Strep B molecular study (08/12/2025 9:06 AM EST) [facility] Grp B Strep PCR Not Detected Not Detected LAB MICROBIOLOGY METHOD 08/13/2025 8:19 AM EST [facility] Swab Pooled specimen from vaginal introitus and rectal swab / Unknown Non-blood Collection / Unknown 08/12/2025 9:06 AM EST 08/12/2025 9:20 AM EST Shahid Davidson MD LAB BLOOD ORDERABLES Fi nal Result Performing Organization Address City/[facility]/ZIP Co de Phone Number [facility] [address] [place] [address], [place] [phone] * Wet prep, genital (08/12/2025 9:06 AM EST) [facility] Clue Cells, Wet Prep Negative Negative 08/12/2025 9:36 AM EST [facility] Yeast, Wet Prep Negative Negative 08/12/2025 9:36 AM EST [facility] Trichomonas, Wet Prep Indeterminate Negative 08/12/2025 9:36 AM EST [facility] Comment:Refer to Trichomonas antigen. Swab Vaginal structure / Unknown Non-blood Collection / Unknown 08/12/2025 9:06 AM EST 08/12/2025 9:20 AM EST us Shahid Davidson MD LAB MICROBIOLOGY - GENE RAL ORDERABLES Final Result [facility] [address] [place] [address], [place] [phone] * Urine culture (08/12/2025 9:06 AM EST) Culture, Urine No growth 08/13/2025 9:01 AM EST [facility] Urine Urine specimen obtained by clean catch procedure / Unknown Non-blood Collection / Unknown 08/12/2025 9:06 AM EST 08/12/2025 9:19 AM EST us Shahid Davidson MD LAB MICROBIOLOGY - GENE RAL ORDERABLES Final Result [facility] [address] [place] [address], [place] [phone] * US OB Transvaginal (07/17/2025 11:15 AM EDT) Anatomical Region Laterality Modality Body Ultrasound 07/17/2025 9:29 AM EDT Narrative 07/18/2025 10:49 AM EDT OBSTETRICS REPORT (Signed Final 07/18/2025 10:49 am) PATIENT INFO: ID #: [id number] : [birth year] (25 yrs)(F) Name: MADDIE ALCAZAR Visit Date: 07/17/2025 09:29 am PERFORMED BY: Attending: Emily Mota MD Performed By: CHART PREP Referred By: Riana Figueroa [facility] Ref. Address: [address] [place] [address] Location: [facility] SERVICE(S) PROVIDED: OB Complete >=14 weeks [address] OB Transvaginal ultrasound [address] INDICATIONS: Vaginal bleeding in , third trimester [...] Relation to CVX: No previa Amniotic Fluid LECNHO FV: Within Normal Limits RUQ(cm) RLQ(cm) LUQ(cm) [...] 07/18/2025 10:49 am) PATIENT INFO: ID #: [id number] : [birth year] (25 yrs)(F) Name: MADDIE ALCAZAR Visit Date: 07/17/2025 09:29 am PERFORMED BY: Attending: Emily Mota MD Performed By: CHART PREP Referred By: Riana Figueroa [facility] Ref. Address: [address] [place] [address] Location: [facility] SERVICE(S) PROVIDED: OB Complete >=14 weeks [address] OB Transvaginal ultrasound [address] INDICATIONS: Vaginal bleeding in , third trimester [...] LMP: 30w 1d Date: 12/18/24 MAXIMILIANO: 09/24/25 /S Today: 31w 1d MAXIMILIANO: 09/17/25 Best: 30w [...] Final Report 07/18/2025 10:49 am us Latoya LEROY IM OB US PROCEDURES Final Result * US OB 14+ Wks Single or First Gestation (07/17/2025 11:15 AM EDT) Anatomical Region Laterality Modality Body Ultrasound 07/17/2025 9:29 AM EDT Narrative 07/18/2025 10:49 AM EDT OBSTETRICS REPORT (Signed Final 07/18/2025 10:49 am) PATIENT INFO: ID #: [id number] : [birth year] (25 yrs)(F) Name: MADDIE ALCAZAR Visit Date: 07/17/2025 09:29 am PERFORMED BY: Attending: Emily Mota MD Performed By: CHART PREP Referred By: Riana Figueroa [facility] Ref. Address: [address] [place] [address] Location: [facility] SERVICE(S) PROVIDED: OB Complete >=14 weeks [address] OB Transvaginal ultrasound 15185 INDICATIONS: Vaginal bleeding in , third trimester [...] am Procedure Note Emily Mota MD - 10/08/2025 OBSTETRICS REPORT (Signed Final 07/18/2025 10:49 am) PATIENT INFO: ID #: [id number] : [birth year] (25 yrs)(F) Name: MADDIE ALCAZAR Visit Date: 07/17/2025 09:29 am PERFORMED BY: Attending: Emily Mota MD Performed By: CHART PREP Referred By: Riana Figueroa [facility] Ref. Address: [address] [place] [id number] Location: [facility] SERVICE(S) PROVIDED: OB Complete >=14 weeks 28106 OB Transvaginal ultrasound 37485 INDICATIONS: Vaginal bleeding in , third trimester [...] Electronically Signed Final Report 07/18/2025 10:49 am Latoya Ni CNM IMG OB US PROCEDURES Final Result * GTT gestational 3 hour (07/03/2025 12:43 PM EDT) Glucose, 3 HR Gestational 117 <140 mg/dL LAB CHEMISTRY METHOD 07/03/2025 3:18 PM EDT [facility] Blood Venous blood specimen / Unknown Venipuncture / Unknown 07/03/2025 12:43 PM EDT 07/03/2025 12:44 PM EDT Narrative [facility] - 07/03/2025 3:18 PM EDT Gestational 3 hour GTT Reference Range: Normal: Fasting: < 95 mg/dL 60 minute: < 180 mg/dL 120 minute: < 155 mg/dL 180 minute: < 140 mg/dL Kat Albright [facility] BLOOD ORDERABLES Final Res ult Performing Organization Address City/[facility]/ZIP Co de Phone Number [facility] [address] [place] [address], * GTT gestational 2 hour (07/03/2025 11:45 AM EDT) Glucose, 2 HR Gestational 138 <155 mg/dL LAB CHEMISTRY METHOD 07/03/2025 3:18 PM EDT [facility] Blood Venous blood specimen / Unknown Venipuncture / Unknown 07/03/2025 11:45 AM EDT 07/03/2025 11:45 AM EDT Kat Wang Jose Ramon [facility] BLOOD ORDERABLES Final Res ult [facility] [address] [place] [address], * GTT gestational 1 hour (07/03/2025 10:44 AM EDT) Only the most recent of2 resultswithin the time period is included. Glucose, 1 HR Gestational 152 <180 mg/dL LAB CHEMISTRY METHOD 07/03/2025 3:19 PM EDT [facility] Blood Venous blood specimen / Unknown Venipuncture / Unknown 07/03/2025 10:44 AM EDT 07/03/2025 10:44 AM EDT us Kat Albright CNM LAB BLOOD ORDERABLES Final Res ult [facility] [address] [place] [address], [place] [phone] * GTT gestational fasting (07/03/2025 9:46 AM EDT) Glucose, GTT - Fasting 73 <95 mg/dL LAB CHEMISTRY METHOD 07/03/2025 3:18 PM EDT [facility] Blood Venous blood specimen / Unknown Venipuncture / Unknown 07/03/2025 9:46 AM EDT 07/03/2025 9:46 AM EDT us Kat Albright CNM LAB BLOOD ORDERABLES Final Res ult [facility] [address] [place] [address], [place] [phone] * Treponema pallidum antibody with reflex to RPR and particle agglutination (06/25/2025 11:25 AM EDT) T. Pallidum Antibodies Negative Negative LAB CHEMISTRY METHOD 06/25/2025 1:02 PM EDT [facility] Blood Venous blood specimen / Unknown Venipuncture / Unknown 06/25/2025 11:25 AM EDT 06/25/2025 11:58 AM EDT Kat Albright CNM LAB BLOOD ORDERABLES Final Res ult [facility] [address] [place] [address], * (ABNORMAL) CBC auto differential (06/25/2025 11:25 AM EDT) WBC 13.5(H) 4.8 - 10.8 K/mcL LAB HEMETOLOGY METHOD 06/25/2025 1:24 PM EDT [facility] RBC 3.70(L) 3.80 - 4.80 M/mcL LAB HEMETOLOGY METHOD 06/25/2025 1:24 PM EDT [facility] Hemoglobin 12.3 11.5 - 16.0 g/dL LAB HEMETOLOGY METHOD 06/25/2025 1:24 PM EDT [facility] Hematocrit 34.7(L) 35.0 - 47.0 % LAB HEMETOLOGY METHOD 06/25/2025 1:24 PM EDT [facility] MCV 94.0 79.0 - 98.0 FL LAB HEMETOLOGY METHOD 06/25/2025 1:24 PM EDT [facility] MCH 33.3(H) 27.0 - 32.0 pcg LAB HEMETOLOGY METHOD 06/25/2025 1:24 PM EDT [facility] MCHC 35.4 32.0 - 37.0 g/dL LAB HEMETOLOGY METHOD 06/25/2025 1:24 PM EDT [facility] RDW 12.8 11.0 - 15.0 % LAB HEMETOLOGY METHOD 06/25/2025 1:24 PM EDT [facility] Platelets 298 130 - 400 K/mcL LAB HEMETOLOGY METHOD 06/25/2025 1:24 PM EDT [facility] MPV 10.3 7.0 - 11.0 FL LAB HEMETOLOGY METHOD 06/25/2025 1:24 PM EDT [facility] NRBC 0.0 <1.0 % LAB HEMETOLOGY METHOD 06/25/2025 1:24 PM [facility] NRBC Absolute 0.00 <0.10 K/mcL LAB HEMETOLOGY METHOD 06/25/2025 1:[facility] Neutrophils Relative 72.4 % LAB HEMETOLOGY METHOD 06/25/2025 1:24 PM [facility] Lymphocytes Relative 18.2 % LAB HEMETOLOGY METHOD 06/25/2025 1:24 PM [facility] Monocytes Relative 5.4 % LAB HEMETOLOGY METHOD 06/25/2025 1:24 PM [facility] Eosinophils Relative 1.5 % LAB HEMETOLOGY METHOD 06/25/2025 1:24 PM [facility] Basophils Relative 0.5 % LAB HEMETOLOGY METHOD 06/25/2025 1:24 PM [facility] Immature Granulocytes Relative 2.0 % LAB HEMETOLOGY METHOD 06/25/2025 1:24 PM [facility] Neutrophils Absolute 9.73(H) 1.50 - 7.00 K/mcL LAB HEMETOLOGY METHOD 06/25/2025 1:24 PM [facility] Lymphocytes Absolute 2.45 1.00 - 5.00 K/mcL LAB HEMETOLOGY METHOD 06/25/2025 1:24 PM [facility] Monocytes Absolute 0.73 0.20 - 1.00 K/mcL LAB HEMETOLOGY METHOD 06/25/2025 1:24 PM [facility] Eosinophils Absolute 0.20 0.00 - 0.50 K/mcL LAB HEMETOLOGY METHOD 06/25/2025 1:24 PM [facility] Basophils Absolute 0.07 0.00 - 0.20 K/mcL LAB HEMETOLOGY METHOD 06/25/2025 1:24 PM EDT [facility] Immature Granulocytes Absolute 0.27(H) 0.00 - 0.03 K/mcL LAB HEMETOLOGY METHOD 06/25/2025 1:24 PM EDT [facility] Blood Venous blood specimen / Unknown Venipuncture / Unknown 06/25/2025 11:25 AM EDT 06/25/2025 12:00 PM EDT Kat LEROY LAB BLOOD ORDERABLES Final Res ult [facility] [address] [place] [address], [place] [phone] * Pap smear (03/14/2025 10:48 AM EDT) Interpretation Negative for intraepithelial lesion or malignancy 03/20/2025 2:09 PM EDT [facility] at 1409 EDT General Categorization Negative 03/20/2025 2:09 PM EDT [facility] Other Findings Shift in anastasia suggestive of bacterial vaginosis 03/20/2025 2:09 PM EDT [facility] Specimen Adequacy Satisfactory for evaluation, endocervical/naqvi sformation zone component present 03/20/2025 2:09 PM EDT [facility] Pap Methodology Liquid Based Pap Test 03/20/2025 2:09 PM EDT [facility] Disclaimer Note: This pap test could not be imaged utilizing the [employer] Imaging System and required a manual review. The Pap test is a screening test which carries an inherent false negative rate. These test results should be correlated with the patient's clinical findings and history. This Pap test was processed using an automated screening system. Technical cytopathology services provided by [facility], at [address] [place] [address] ([facility] # [id number]/Marine Senior MD, Clinical Resource Manager.) 03/20/2025 2:09 PM EDT [facility] Console Pap Interpretation Reported 03/20/2025 2:09 PM EDT [facility] Brushing/Spatula Cervix uteri structure / Unknown 03/14/2025 10:48 AM EDT 03/15/2025 7:46 AM EDT [facility] LAB CYTOLOGY ORDERABLES Final Result Performing Organization Address City/[facility]/ZIP Co de Phone Number [facility] [address] [place] [address], [place] [phone] * Hepatitis C antibody (03/02/2025 11:01 AM EDT) Hepatitis C Antibody Negative Negative LAB CHEMISTRY METHOD 03/02/2025 1:46 PM EDT [facility] Blood Venous blood specimen / Unknown Venipuncture / Unknown 03/02/2025 11:01 AM EDT 03/02/2025 11:48 AM EDT [facility] LAB BLOOD ORDERABLES Final Re sult [facility] [address] [place] [address], [place] [phone] * HIV 1,2 antibody, p24 antigen with reflex to differentiation (03/02/2025 11:01 AM EDT) HIV Combo AB/AG Negative Negative LAB CHEMISTRY METHOD 03/02/2025 1:46 PM EDT [facility] Blood Venous blood specimen / Unknown Venipuncture / Unknown 03/02/2025 11:01 AM EDT 03/02/2025 11:48 AM EDT Narrative [facility] - 03/02/2025 1:46 PM EDT This [...] LEROY LAB BLOOD ORDERABLES Final Re sult [facility] [address] [place] [address], [place] [phone] from Last 3 Months or Most Recently Relevant to Health Maintenance Insurance MEDICA[place] Advance Directives * Full Code - Confirmed (Latest Code Status on File) Date Activated Date Inactivated Comments 08/12/2025 8:51 AM 08/12/2025 3:31 PM Care 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
== END 2025-09-13 15:13 | disposition home or self-care (01) ==
LOC: HO.HGS 14:52
PROVIDERS: PCP Internal Medicine Geriatric Medicine; Referring Provider Internal Medicine Geriatric Medicine; Visit Provider Surgery
DX: L02.419 Cutaneous abscess of limb, unspecified (principal)
CPT/HCPCS: 99203

== ENCOUNTER → 2025-09-13 14:52 | Outpatient (BNVA) | payer MEDICAID, SELFPAY | PROVIDERS: PCP Internal Medicine Geriatric Medicine; Referring Provider Internal Medicine Geriatric Medicine; Visit Provider Surgery | DX: L02.412 Cutaneous abscess of left axilla (principal) | CPT/HCPCS: 99202 ==

== ENCOUNTER 2025-09-20 13:09 | Outpatient (AMB) | payer MEDICAID, SELFPAY ==
[2025-09-20 13:10] VITALS: BP 121/63; PULSE 90; BMI 31.5
--- NOTE | 2025-09-20 13:10 | A.OFFVIS_ITS ---
Vital Signs 09/20/25 13:10 Height 5 ft 2 in Weight 172 lb BMI 31.5 BP 121/63 Blood Pressure Location Rt brachial Position Sitting Pulse 90 Intake Visit Reasons: 1wk follow up Abscess~ Lt axilla Intake Note: Patient here for 1wk follow up abscess on Lt axilla. Still taking Doxycycline and Bactrim course. Patient c/o: reports pain has improved. Denies oozing, drainage. 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 She reports that the drainage in pain has largely resolved with antibiotic therapy and she now presents for definitive surgical excision. [facility] Surgical History Status post breast reduction Family History Paternal Grandmother Diabetes Father Diabetes Social History Patient Tobacco Use Status: Never used Tobacco Physical Exam Vital Signs: Last Vital Signs Pulse 90 09/20/25 13:10 BP 121/63 09/20/25 13:10 BMI result Body Mass Index 31.5 Const Orientation/consciousness: oriented to person, oriented to place and oriented to time HEENT Head: Yes normal to inspection, Yes normocephalic and Yes atraumatic Eyes Sclerae: sclerae normal Pupils: Equal, round and reactive pupils present EOM: EOMs intact bilaterally Neck Neck: Yes normal visual inspection Chest Other: Two discrete areas in the left axilla superior and inferior with thickened tissue consistent with resolving abscesses. No drainage no fluctuance no erythema minimally tender. Cardio Rate: regular rate Rhythm: regular rhythm GI Inspection: Yes normal to inspection General: Yes no CVA tenderness Back/Spine/Pelvis Back: no CVA tenderness Thoracic/Lumbar Spine: thoracic and lumbar spine normal to inspection Neuro General: oriented to person, oriented to place and oriented to time Cranial nerves: Yes CN's II-XII intact bilaterally and Yes Equal, round and reactive pupils present Assessment & Plan Assessment & Plan (1) Abscess of axillary region: Code(s): L02.419 - Cutaneous abscess of limb, unspecified Category: Medical Plan: I reviewed with the patient the nature of excisional biopsy of her left axillary cysts. We also reviewed the risks that are involved. These include but are not limited to the risk of bleeding the risks infection the risk of scarring the risk of recurrence the risk of chronic pain. She indicated that she understood. She told me that she understood and accepted the risks of surgery and lastly indicated that she wished to proceed with operative intervention. Orders: Referrals General Surgery Procedure Notification L02.419 - Cutaneous abscess of limb, unspecified Coding Level of Care Code Est Pt Level 4 (46037) Diagnoses Abscess of axillary region L02.419 Time Spent (min) 30 Comment Record review, patient visit time and coordination of care
--- OUTSIDE RECORDS SUMMARY | 2025-09-20 20:27 | XMS_ITS | Encounter Summary ---
Author Organization [facility] Address [address] [place] [address] Care Team Providers Care Hyperbaric Welder Diver Name Role Phone Physician, No Pcp Primary Care Provider Unavaila ble Encounter Details Date Type Department Care Team (Late Contact Info) Description 07/18/2025 Results Follow-Up [facility] - [facility] [address] [place] [address] Latoya Ni, [address] [phone] Social History Tobacco Use Types Packs/Day Years [...] Industry Job Start Date Job End Date [employer] Not on file Not on file Not on file documented as of this encounter Plan of Treatment Upcoming Encounters Date Type Department Care Team (Late st Contact Info) Description 09/24/2025 1:30 PM EST Visit Obstetrics and Gynecology [address] [phone] Regina Whyte, [address] [place] [address] documented as of this encounter Visit Diagnoses Not on filedocumented in this encounter Care Teams Hyperbaric Welder Diver Relationship Specialty Start Date End Date Physician, No Pcp PCP - General 02/23/25 documented as of this encounter
--- OUTSIDE RECORDS SUMMARY | 2025-09-20 20:27 | XMS_ITS | Clinical Summary ---
Author Organization [facility] Address [address] [place] [address] Phone Care Team Providers Care Pharmacy Salesperson Name Role Phone Physician, No Pcp Primary [...] trimester 02/28/2025 Overview (07/11/2025): 1. [place] site: [facility] ([facility] Building): [address] [place] [phone] ([phone]) 2. Delivery site: [facility] 3. [...] Description 08/15/2025 Telephone Obstetrics and Gynecology - [address] [phone] Wendy Brown RN 08/12/2025 8:16 AM EST - 08/12/2025 10:37 AM EST Hospital Encounter [facility] - Maternity [address] [place] [address] Shahid Davidson MD Discharge Disposition: Another Health Care Institution Not Defined 08/08/2025 1:00 PM EDT Routine Obstetrics & Gynecology [address] [phone] Kat Albright CNM Encounter for supervision of normal first in third trimester (Primary Dx); 33 weeks gestation of 07/26/2025 [address] [phone] Regina Whyte CNM 07/25/2025 1:15 PM EDT Routine Obstetrics & Gynecology [address] [phone] Kat Albright CNM Encounter for supervision of normal first in third trimester (Primary Dx); Bilateral sciatica; 31 weeks gestation of 07/18/2025 Results Follow-Up [address] [phone] Latoya Ni CNM 07/17/2025 11:00 AM EDT Ancillary Procedure Maternal Medicine - [address] [phone] Vaginal bleeding in , third trimester; 30 weeks gestation of ; Obesity complicating in third trimester 07/17/2025 [address] [phone] Regina Whyte CNM 07/15/[address] [phone] Latoya Ni CNM 07/11/2025 1:00 PM EDT Routine Obstetrics & [address] [phone] Kat Albright CNM Encounter for supervision of [...] Industry Job Start Date Job End Date [employer] Not on file Not on file Not on file Obstetrics History Para Term AB IAB SAB Ectopic Multiple Livin g Live Births 1 1 0 1 0 0 1 1 Date Outcome GA Total Labor Labor/2nd/3rd Weight Sex Type Anes PTL Patsy A1 A5 Name Clin 025 34w 1d 2732 g (96.4 oz) M Y Living Delivery Location:[facility] Summary Episode Dates Number of Fetuses Estimated Date of Delivery 02/28/2025 - Present (09/20/2025) 1 09/24/2025 (set by Bhavna Alvarez RN on 02/28/2025 based on Last Menstrual Period on 12/18/2024 (Within Days)) Dating Summary Based On MAXIMILIANO GA Diff Last Menstrual Period on 12/18/2024 (Within Days ) 09/24/2025 Working Ultrasound on 02/23/2025 09/27/2025 -3d GA:9w1d Alternate MAXIMILIANO Entry 09/24/2025 Same Comment:Date entered prior t o episode creation Vitals Pregravid Weight Height TWG (As of 09/20/2025) Pregrav id BMI 72.1 kg (159 lb) [...] is A Positive. She presented to the [facility] triage accompanied by her partner, complaining [...] with Dr. Carbajal- Transfer process started to [facility] Kat Albright CNM I reviewed patients record and assisted with her evaluation. I agree with the above note. Patient is being transferred to [facility]. 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 Also has [...] pertussis vaccination: YES Denies history of Guillain Fawnskin Syndrome.or any type of seizure disorder. YES [...] Routine from 07/11/2025 in Obstetrics & Gynecology [facility] with Kat Albright CNM 07/11/2025 1311 Last Filed Value Troy Depression Scale: In the Past 7 Days [...] myself has occurred to me. Never Never Troy Depression Scale Total 8 8 Progress Notes [...] 05/09/2025 - GA:20w2d 05/09/2025 - - Kat lAbright CNM OB Visit: Vitals BP: 94/56 (p [...] Pre - 03/14/2025 - GA:12w2d 03/14/2025 - - [...] first trimester and how to contact information systems security developer provider. Discussed the benefits of breast feeding [...] y.o. old female at 10w2d. This is [place]. The patient feels happy about the . [...] to the above questions, is this for baptism reasons? N/A Do you know what your [...] of estimated date of delivery No Thalassemia (Cape Verdean, Spanish, Mediterranean, or background): MCV less than 80 No Neural tube defect (Meningomyelocele, Spina bifida, or Anencephaly) No Congenital heart defect No Down syndrome No Karson-Sachs (Ashkenazi Holiness, Cajun, Lithuanian [place]) No Ilan disease (Ashkenazi Holiness) No Familial dysautonomia (Ashkenazi Holiness) No Sickle cell disease or trait () [...] Alcazar has also been informed of the computer applications developer provider recommendation for first trimester nuchal lucency testing to be performed during her . Maddie Alcazar has also been made aware of the time sensitive nature for this testing to be completed. . The patient now has a gestational age of 10w2d. The patient has agreed that she does want nuchal lucency testing. Ethnicity Based Genetic Testing has been reviewed and the [employer] information sheet has been provided to the [...] For Horizon Carrier Screening, if patient has V[employer], [employer] or [employer] insurances: Not Applicable Electronically signed by: Bhavna [...] 1:30 PM EST Visit Obstetrics and Gynecology [address] [phone] Regina Whyte, CN [address] [place] [address] Health Maintenance Due Date Last Done Comments Hepatitis A Vaccines (2 of 2 - 2-dose series) 07/31/2015 01/29/2015 Depression Screening 10/11/2024 Social Influencers of Health Screening 01/26/2025 COVID-19 Vaccine ( season) 2025 Influenza Vaccine (#1) 2025 11/14/2012 Gonorrhea/Chlamydia Screening 08/12/2026 08/12/2025, 04/12/2025, 03/14/2025 Cholesterol Screening (Lipid Panel) 03/26/2027 03/26/2022 Cervical Cancer Screening: Pap Smear 03/14/2028 03/14/2025 DTaP,Tdap,and Td Vaccines (7 - Td or Tdap) 07/11/2035 07/11/2025, 11/14/2012, 09/10/2005, Additional history exists RSV Immunization Adult Patients (1 - 1-dose 75+ series) 2076 HIB Vaccines Aged Out 01/13/2002, 10/2001, 2001 No longer eligible based on patient's age to complete this topic Hepatitis B Vaccines Completed 01/13/2002, 2001, 2001 Pneumococcal Vaccine: Pediatrics (0 to 5 Years) and At-Risk Patients (6 to 49 Years) Aged Out 01/13/2002, 2001, 2001 No longer eligible based on patient's age to complete this topic IPV Vaccines Completed 09/10/2005, 10/2001, 2001, Additional history exists HPV Vaccines Completed 11/17/2011, 01/10, 11/21/2010 Meningococcal ACWY Vaccine Aged Out 11/14/2012 N o longer eligible based on patient's age to complete this topic Varicella Vaccines Completed 01/23/2014, 06/30/2002 HIV Screening Completed 03/02/2025 Hepatitis C Screening Completed 03/02/2025 MMR Vaccines Completed 08/16/2025, 10/2004, 06/30/2002 Meningococcal B Vaccine Aged Out No l onger eligible based on patient's age to complete this topic RSV Immunization Patients Under 20 months Aged Out No longer eligible based on [...] with reflex microscopic (08/12/2025 9:06 AM EST) Pathologist [facility] [place] Specific [place] Urine 1.018 1.003 - 1.030 LAB URINALYSIS - AUTOMATED METHOD 08/12/2025 9:32 AM [facility] pH, Urine 6.0 5.0 - 8.0 pH LAB URINALYSIS - AUTOMATED METHOD 08/12/2025 9:32 AM [facility] Leukocytes, Urine Small(A) Negative LAB URINALYSIS - AUTOMATED METHOD 08/12/2025 9:32 AM [facility] Nitrite, Urine Negative Negative LAB URINALYSIS - AUTOMATED METHOD 08/12/2025 9:32 AM [facility] Protein, Urine Trace <=Trace mg/dL LAB URINALYSIS - AUTOMATED METHOD 08/12/2025 9:32 AM [facility] Glucose, Urine Negative Negative mg/dL LAB URINALYSIS - AUTOMATED METHOD 08/12/2025 9:32 AM [facility] Ketones, Urine Negative Negative mg/dL LAB URINALYSIS - AUTOMATED METHOD 08/12/2025 9:32 AM [facility] Urobilinogen, Urine 1.0 0.2 - 1.0 mg/dL LAB URINALYSIS - AUTOMATED METHOD 08/12/2025 9:32 AM [facility] Bilirubin, Urine Negative Negative LAB URINALYSIS - AUTOMATED METHOD 08/12/2025 9:32 AM [facility] Blood, Urine Negative Negative LAB URINALYSIS - AUTOMATED METHOD 08/12/2025 9:32 AM [facility] RBC, Urine 2.0 0 - 4 /HPF LAB URINALYSIS - AUTOMATED METHOD 08/12/2025 9:32 AM [facility] WBC, Urine 4.3(H) 0 - 4 /HPF LAB URINALYSIS - AUTOMATED METHOD 08/12/2025 9:32 AM [facility] Squamous Epithelial, Urine 71(H) 0 - 60 /LPF LAB URINALYSIS - AUTOMATED METHOD 08/12/2025 9:32 AM [facility] Bacteria, Urine Negative Negative /HPF LAB URINALYSIS - AUTOMATED METHOD 08/12/2025 9:32 AM [facility] Hyaline Casts, Urine 2.0 0 - 3 /LPF LAB URINALYSIS - AUTOMATED METHOD 08/12/2025 9:32 AM [facility] Urine Urine specimen obtained by clean catch procedure / Unknown Non-blood Collection / Unknown 08/12/2025 9:06 AM EST 08/12/2025 9:20 AM EST us Shahid Davidson MD LAB URINE ORDERABLES Fi nal Result [facility] [address] [place] [address], * Drug abuse screen 8a panel, urine (08/12/2025 9:06 AM EST) Amphetamine Screen, Ur Negative Negative LAB CHEMISTRY METHOD 08/12/2025 9:42 AM [facility] Comment:Certain OTC medicati ons containing ephedrine, phenylephrine, pseudoephedrine and phenylpropanolamine can cause false positive results. Barbiturate Screen, Ur Negative Negative LAB CHEMISTRY METHOD 08/12/2025 9:42 AM [facility] Benzodiazepine Screen, Ur Negative Negative LAB CHEMISTRY METHOD 08/12/2025 9:42 AM [facility] Cocaine Screen, Ur Negative Negative LAB CHEMISTRY METHOD 08/12/2025 9:42 AM [facility] Opiate Screen, Ur Negative Negative LAB CHEMISTRY METHOD 08/12/2025 9:42 AM [facility] Cannabinoid (THC) Screen, Ur Negative Negative LAB CHEMISTRY METHOD 08/12/2025 9:42 AM [facility] Comment:Specimens from patie nts taking pantoprazole sodium (Protonix) have been shown to produce false positive results. Oxycodone Screen, Ur Negative Negative LAB CHEMISTRY METHOD 08/12/2025 9:42 AM [facility] Fentanyl, Ur Negative Negative LAB CHEMISTRY METHOD 08/12/2025 9:42 AM EST [facility] Urine Urine specimen obtained by clean catch procedure / Unknown Non-blood Collection / Unknown 08/12/2025 9:06 AM EST 08/12/2025 9:19 AM EST Narrative [facility] - 08/12/2025 9:42 AM EST [...] MD LAB URINE ORDERABLES Fi nal Result [facility] [address] [place] [address], * Trichomonas vaginalis antigen (08/12/2025 9:06 AM EST) Trichomonas vaginalis Negative Negative 08/12/2025 9:49 AM [facility] Swab Vaginal structure / Unknown Non-blood Collection / Unknown 08/12/2025 9:06 AM EST 08/12/2025 9:20 AM EST Shahid Davidson MD LAB MICROBIOLOGY - GENE RAL ORDERABLES Final Result [facility] [address] [place] [address], [place] [phone] * Chlamydia trachomatis and Neisseria gonorrhoeae molecular study (08/12/2025 9:06 AM EST) Neisseria gonorrhoeae PCR Negative Negative LAB MOLECULAR DIAGNOSTICS METHOD 08/12/2025 3:01 PM EST [facility] Chlamydia trachomatis PCR Negative Negative LAB MOLECULAR DIAGNOSTICS METHOD 08/12/2025 3:01 PM EST [facility] Swab Cervix uteri structure / Unknown Non-blood Collection / Unknown 08/12/2025 9:06 AM EST 08/12/2025 9:20 AM EST Shahid Davidson MD LAB MICROBIOLOGY - GENE RAL ORDERABLES Final Result [facility] [address] [place] [address], [place] [phone] * Strep B molecular study (08/12/2025 9:06 AM EST) [facility] Strep PCR Not Detected Not Detected LAB MICROBIOLOGY METHOD 08/13/2025 8:19 AM EST [facility] Swab Pooled specimen from vaginal introitus and rectal swab / Unknown Non-blood Collection / Unknown 08/12/2025 9:06 AM EST 08/12/2025 9:20 AM EST Shahid Davidson MD LAB BLOOD ORDERABLES Fi nal Result Performing Organization Address City/[facility]/ZIP Co de Phone Number [facility] [address] [place] [address], [place] [phone] * Wet prep, genital (08/12/2025 9:06 AM EST) [facility] Clue Cells, Wet Prep Negative Negative 08/12/2025 9:36 AM EST [facility] Yeast, Wet Prep Negative Negative 08/12/2025 9:36 AM EST [facility] Trichomonas, Wet Prep Indeterminate Negative 08/12/2025 9:36 AM EST [facility] Comment:Refer to Trichomonas antigen. Swab Vaginal structure / Unknown Non-blood Collection / Unknown 08/12/2025 9:06 AM EST 08/12/2025 9:20 AM EST Shahid Davidson MD LAB MICROBIOLOGY - GENE RAL ORDERABLES Final Result Performing Organization Address City/[facility]/ZIP Co de Phone Number [facility] [address] [place] [address], [place] [phone] * Urine culture (08/12/2025 9:06 AM EST) Culture, Urine No growth 08/13/2025 9:01 AM EST [facility] Urine Urine specimen obtained by clean catch procedure / Unknown Non-blood Collection / Unknown 08/12/2025 9:06 AM EST 08/12/2025 9:19 AM EST Shahid Davidson MD LAB MICROBIOLOGY - GENE RAL ORDERABLES Final Result Performing Organization Address [facility] Co de Phone Number [facility] [address] [place] [address], [place] [phone] * US OB Transvaginal (07/17/2025 11:15 AM EDT) Anatomical Region Laterality Modality Body Ultrasound 07/17/2025 9:29 AM EDT Narrative 07/18/2025 10:49 AM EDT OBSTETRICS REPORT (Signed Final 07/18/2025 10:49 am) PATIENT INFO: ID #: [id number] : [birth year] (25 yrs)(F) Name: MADDIE ALCAZAR Visit Date: 07/17/2025 09:29 am PERFORMED BY: Attending: Emily Mota MD Performed By: CHART PREP Referred By: Riana Figueroa [facility] Ref. Address: [address] [place] [address] Location: [place] [facility] ([facility]) SERVICE(S) PROVIDED: OB Complete >=14 weeks 09128 OB Transvaginal ultrasound 94771 INDICATIONS: Vaginal bleeding in , third trimester [...] 07/18/2025 10:49 am) PATIENT INFO: ID #: [id number] : [birth year] (25 yrs)(F) Name: MADDIE ALCAZAR Visit Date: 07/17/2025 09:29 am PERFORMED BY: Attending: Emily Mota MD Performed By: CHART PREP Referred By: Riana Figueroa [facility] Ref. Address: [address] [place] [address] Location: [place] [facility] ([facility]) SERVICE(S) PROVIDED: OB Complete >=14 weeks [address]71 OB Transvaginal ultrasound [address]00 INDICATIONS: Vaginal bleeding in , third trimester [...] Report 07/18/2025 10:49 am us Latoya LEROY IMG OB US PROCEDURES Final Result * US OB 14+ Wks Single or First Gestation (07/17/2025 11:15 AM EDT) Anatomical Region Laterality Modality Body Ultrasound 07/17/2025 9:29 AM EDT Narrative 07/18/2025 10:49 AM EDT OBSTETRICS REPORT (Signed Final 07/18/2025 10:49 am) PATIENT INFO: ID #: [id number] : [birth year] (25 yrs)(F) Name: MADDIE ALCAZAR Visit Date: 07/17/2025 09:29 am PERFORMED BY: Attending: Emily Mota MD Performed By: CHART PREP Referred By: Riana Figueroa [facility] Ref. Address: [address] [place] [address] Location: [place] [facility] ([facility]) SERVICE(S) PROVIDED: OB Complete >=14 weeks 80296 OB Transvaginal ultrasound 69189 INDICATIONS: Vaginal bleeding in , third trimester [...] Signed Final Report 07/18/2025 10:49 am Procedure Emily De La Fuente MD - 07/18/2025 OBSTETRICS REPORT (Signed Final 07/18/2025 10:49 am) PATIENT INFO: ID #: [id number] : [birth year] (25 yrs)(F) Name: MADDIE ALCAZAR Visit Date: 07/17/2025 09:29 am PERFORMED BY: Attending: Emily Mota MD Performed By: CHART PREP Referred By: Riana Figueroa [facility] Ref. Address: [address] [place] [address] Location: [place] [facility] ([facility]) SERVICE(S) PROVIDED: OB Complete >=14 weeks [address]39[address] OB Transvaginal ultrasound 18247 INDICATIONS: Vaginal bleeding in , third trimester [...] LAB CHEMISTRY METHOD 07/03/2025 3:18 PM EDT [facility] Blood Venous blood specimen / Unknown Venipuncture / Unknown 07/03/2025 12:43 PM EDT 07/03/2025 12:44 PM EDT Narrative [facility] - 07/03/2025 3:18 PM EDT Gestational 3 hour GTT Reference Range: Normal: Fasting: < 95 mg/dL 60 minute: < 180 mg/dL 120 minute: < 155 mg/dL 180 minute: < 140 mg/dL Kat LEROY LAB BLOOD ORDERABLES Final Res ult [facility] [address] [place] [address], * GTT gestational 2 hour (07/03/2025 11:45 AM EDT) Glucose, 2 HR Gestational 138 <155 mg/dL LAB CHEMISTRY METHOD 07/03/2025 3:18 PM EDT [facility] Blood Venous blood specimen / Unknown Venipuncture / Unknown 07/03/2025 11:45 AM EDT 07/03/2025 11:45 AM EDT us Kat Albright [facility] LAB BLOOD ORDERABLES Final Res ult Performing Organization Address [facility] Co de Phone Number [facility] [address] [place] [address], [place] [phone] * GTT gestational 1 hour (07/03/2025 10:44 AM EDT) Only the most recent of2 resultswithin the time period is included. [facility] Glucose, 1 HR Gestational 152 <180 mg/dL LAB CHEMISTRY METHOD 07/03/2025 3:19 PM EDT [facility] Blood Venous blood specimen / Unknown Venipuncture / Unknown 07/03/2025 10:44 AM EDT 07/03/2025 10:44 AM EDT us Kat Albright [facility] LAB BLOOD ORDERABLES Final Res ult Performing Organization Address [facility] Co de Phone Number [facility] [address] [place] [address], [place] [phone] * GTT gestational fasting (07/03/2025 9:46 AM EDT) [facility] Glucose, GTT - Fasting 73 <95 mg/dL LAB CHEMISTRY METHOD 07/03/2025 3:18 PM EDT [facility] Blood Venous blood specimen / Unknown Venipuncture / Unknown 07/03/2025 9:46 AM EDT 07/03/2025 9:46 AM EDT us Kat Albright [facility] LAB BLOOD ORDERABLES Final Res ult Performing Organization Address [facility] Co de Phone Number [facility] [address] [place] [address], [place] [phone] * Treponema pallidum antibody with reflex to RPR and particle agglutination (06/25/2025 11:25 AM EDT) T. Pallidum Antibodies Negative Negative LAB CHEMISTRY METHOD 06/25/2025 1:02 PM EDT [facility] Blood Venous blood specimen / Unknown Venipuncture / Unknown 06/25/2025 11:25 AM EDT 06/25/2025 11:58 AM EDT us Kat Albright CNM LAB BLOOD ORDERABLES Final Res ult [facility] [address] [place] [address], [place] [phone] * (ABNORMAL) CBC auto differential (06/25/2025 11:25 AM EDT) Pathologist [facility] [place] WBC 13.5(H) 4.8 - 10.8 K/mcL LAB HEMETOLOGY METHOD 06/25/2025 1:24 PM EDT [facility] RBC 3.70(L) 3.80 - 4.80 M/[facility] LAB HEMETOLOGY METHOD 06/25/2025 1:24 PM EDT [facility] Hemoglobin 12.3 11.5 - 16.0 g/dL LAB HEMETOLOGY METHOD 06/25/2025 1:24 PM EDT [facility] Hematocrit 34.7(L) 35.0 - 47.0 % LAB HEMETOLOGY METHOD 06/25/2025 1:24 PM EDT [facility] MCV 94.0 79.0 - 98.0 FL LAB HEMETOLOGY METHOD 06/25/2025 1:24 PM EDT [facility] MCH 33.3(H) 27.0 - 32.0 pcg LAB HEMETOLOGY METHOD 06/25/2025 1:24 PM EDT [facility] MCHC 35.4 32.0 - 37.0 g/dL LAB HEMETOLOGY METHOD 06/25/2025 1:[facility] RDW 12.8 11.0 - 15.0 % LAB HEMETOLOGY METHOD 06/25/2025 1:24 PM EDT [facility] Platelets 298 130 - 400 K/mcL LAB HEMETOLOGY METHOD 06/25/2025 1:24 PM [facility] MPV 10.3 7.0 - 11.0 FL LAB HEMETOLOGY METHOD 06/25/2025 1:24 PM [facility] NRBC 0.0 <1.0 % LAB HEMETOLOGY METHOD 06/25/2025 1:24 PM [facility] NRBC Absolute 0.00 <0.10 K/mcL LAB HEMETOLOGY METHOD 06/25/2025 1:24 PM [facility] Neutrophils Relative 72.4 % LAB HEMETOLOGY [...] LAB HEMETOLOGY METHOD 06/25/2025 1:24 PM EDT [facility] Eosinophils Absolute 0.20 0.00 - 0.50 K/mcL LAB HEMETOLOGY METHOD 06/25/2025 1:24 PM EDT [facility] Basophils Absolute 0.07 0.00 - 0.20 K/mcL LAB HEMETOLOGY METHOD 06/25/2025 1:24 PM EDT [facility] Immature Granulocytes Absolute 0.27(H) 0.00 - 0.03 K/[facility] LAB HEMETOLOGY METHOD 06/25/2025 1:24 PM EDT [facility] Blood Venous blood specimen / Unknown Venipuncture / Unknown 06/25/2025 11:25 AM EDT 06/25/2025 12:00 PM EDT us Kat Albright CNDuane LAB BLOOD ORDERABLES Final Res ult [facility] [address] [place] [address], * Pap smear (03/14/2025 10:48 AM EDT) Interpretation Negative for intraepithelial lesion or malignancy 03/20/2025 2:09 PM EDT [facility] at 1409 EDT General Categorization Negative 03/20/2025 2:09 PM EDT [facility] Other Findings Shift in anastasia suggestive of bacterial vaginosis 03/20/2025 2:09 PM EDT [facility] Specimen Adequacy Satisfactory for evaluation, endocervical/naqvi sformation zone component present 03/20/2025 2:09 PM EDT [facility] Pap Methodology Liquid Based Pap Test 03/20/2025 2:09 PM EDT [facility] Disclaimer Note: This pap test could not be imaged utilizing the [employer] System and required a manual review. The Pap test is a screening test which carries an inherent false negative rate. These test results should be correlated with the patient's clinical findings and history. This Pap test was processed using an automated screening system. Technical cytopathology services provided by [facility], at [address] [place] [address] (CLIA # [id number]/Marine Senior MD, Remote Sensing Scientist.) 03/20/2025 2:09 PM EDT [facility] Console Pap Interpretation Reported 03/20/2025 2:09 PM EDT [facility] Brushing/Spatula Cervix uteri structure / Unknown 03/14/2025 10:48 AM EDT 03/15/2025 7:46 AM EDT [facility] LAB CYTOLOGY ORDERABLES Final Result Performing Organization Address City/[facility]/ZIP Co de Phone Number [facility] [address] [place] [address], [place] [phone] * Hepatitis C antibody (03/02/2025 11:01 AM EDT) [facility] Hepatitis C Antibody Negative Negative LAB CHEMISTRY METHOD 03/02/2025 1:46 PM EDT [facility] Blood Venous blood specimen / Unknown Venipuncture / Unknown 03/02/2025 11:01 AM EDT 03/02/2025 11:48 AM EDT [facility] LAB BLOOD ORDERABLES Final Re sult [facility] [address] [place] [address], [place] [phone] * HIV 1,2 antibody, p24 antigen with reflex to differentiation (03/02/2025 11:01 AM EDT) HIV Combo AB/AG Negative Negative LAB CHEMISTRY METHOD 03/02/2025 1:46 PM EDT [facility] Blood Venous blood specimen / Unknown Venipuncture / Unknown 03/02/2025 11:01 AM EDT 03/02/2025 11:48 AM EDT Narrative [facility] - 03/02/2025 1:46 PM EDT [...] LEROY LAB BLOOD ORDERABLES Final Re sult [facility] [address] [place] [place] [address], from Last 3 Months or Most Recently Relevant to Health Maintenance Insurance MEDICAID - [place] Advance Directives * Full Code - Confirmed (Latest Code Status on File) Date Activated Date Inactivated Comments 08/12/2025 8:51 AM 08/12/2025 3:31 PM Care Teams Pharmacy Salesperson Relationship Specialty Start Date End Date Physician, No Pcp PCP - General 02/23/25
== END 2025-09-20 13:18 | disposition home or self-care (01) ==
LOC: HO.HGS 13:09
PROVIDERS: PCP Internal Medicine Geriatric Medicine; Visit Provider Surgery
DX: L02.419 Cutaneous abscess of limb, unspecified (principal)
CPT/HCPCS: 99214

== ENCOUNTER → 2025-09-20 13:09 | Outpatient (BNVA) | payer MEDICAID, SELFPAY | PROVIDERS: PCP Internal Medicine Geriatric Medicine; Visit Provider Surgery | DX: L02.412 Cutaneous abscess of left axilla (principal) | CPT/HCPCS: 99212 ==

== ENCOUNTER 2025-10-08 08:04 | Day surgery (SDC) | payer MEDICAID, SELFPAY ==
--- OUTSIDE RECORDS SUMMARY | 2025-09-24 13:30 | XMS_ITS | Encounter Summary ---
Author Organization [facility] Address [address] [place] [address] Care Team Providers Care Door Installer Name Role Phone Physician, No Pcp Primary Care Provider Unavaila ble Reason for Visit * Reason Comments Follow-up Encounter Details Date Type Department Care Team (Latest Contact Info) Description 09/24/2025 1:30 PM EST Visit Obstetrics and Gynecology [address] [phone] Regina Whyte, [facility] [address] [place] [address] Routine follow-up (Primary Dx); Decreased milk production; Encounter for screening for maternal depression Social History Tobacco Use Types Packs/Day Years [...] Industry Job Start Date Job End Date [employer] Not on file Not on file Not on file documented as of this encounter Last Filed Vital Signs Vital Sign Reading Time Taken Comments Blood Pressure 112/60 09/24/2025 1:47 PM EST Pulse 82 09/24/2025 1:47 PM EST Temperature - - Respiratory Rate 16 09/24/2025 1:47 PM EST Oxygen Saturation - - Inhaled Oxygen Concentration - - Weight 77.1 kg (170 lb) 09/24/2025 1:47 PM EST Height - - Body Mass Index 31.09 02/28/2025 2:43 PM EDT documented in this encounter Ordered Prescriptions Prescription Sig Dispense Quantity Refills Last Filled Start Date End Date metoclopramide (REGLAN) 10 mg tablet Take 1 tablet (10 mg total) by mouth 3 (three) times a day before meals. 60 tablet 2 09/24/2025 documented in this encounter Progress Notes * Regina Whyte CNM - 09/24/2025 1:30 PM EST Subjective Patient ID: Rita Le is a 25 y.o. female. S/p , 08/14 is currently She is breast feeding exclusively. Had 34wks d/t pprom Reports decrease milk supply plans on use of fenugreek and pumping q2hrs Contraception plan: Nothing [place] Depression Scale: In the Past 7 Days I have been able to laugh and see the funny side of things.: As much as I always could I have looked forward with enjoyment to things.: As much as I ever did I have blamed myself unnecessarily when things went wrong.: Yes, some of the time I have been anxious or worried for no good reason.: Hardly ever I have felt scared or panicky for no good reason.: No, not at all Things have been getting on top of me.: No, most of the time I have coped quite well I have been so unhappy that I have had difficulty sleeping.: Not at all I have felt sad or miserable.: Not very often I have been so unhappy that I have been crying.: Only occasionally The thought of harming myself has occurred to me.: Never [place] Depression Scale Total: 6 Chief Complaint Patient presents with Follow-up Review of Systems Constitutional: Negative for activity change and appetite change. HENT: Negative for rhinorrhea and sore throat. Respiratory: Negative for cough, chest tightness and shortness of breath. Cardiovascular: Negative for chest pain and palpitations. Gastrointestinal: Negative for abdominal pain, constipation, diarrhea and vomiting. Endocrine: Negative. Genitourinary: Negative for difficulty urinating, dyspareunia, dysuria, frequency, menstrual problem, pelvic pain, urgency, vaginal bleeding, vaginal discharge and vaginal pain. Musculoskeletal: Negative for back pain, joint swelling, neck pain and neck stiffness. Skin: Negative. Breast: Negative for breast skin changes, nipple discharge, breast lump or mass and breast pain. Neurological: Negative for dizziness, syncope, speech difficulty, weakness, light-headedness, numbness and headaches. Psychiatric/Behavioral: Negative for behavioral problems, hallucinations and sleep disturbance. Thepatient is not nervous/anxious. Objective Vitals BP: 112/60 Weight: 77.1 kg (170 lb) Physical Exam Constitutional: Appearance: Normal appearance. Genitourinary: Comments: Menses started first since delivery declines ve Neurological: Mental Status: She is alert. Assessment/Plan Routine follow-up (Primary) Decreased milk production Encounter for screening for maternal depression - Health and behavioral assessment; Future Other orders - metoclopramide (REGLAN) 10 mg tablet; Take 1 tablet (10 mg total) by mouth 3 (three) times a day before meals. Dispense: 60 tablet; Refill: 2 Rx for reglan to increase milk Desires nothing for bc F/u routinely documented in this encounter Plan of Treatment Not on file documented as of this encounter Visit Diagnoses Diagnosis Routine follow-up- Primary Decreased milk production Unspecified disorder of , unspecified as to episode of care Encounter for screening for maternal depression documented in this encounter Orders Behavioral Health Services Count Last Ordered D ate First Ordered Date HEALTH AND BEHAVIORAL ASSESSMENT 1 09/24/20 documented in this encounter Care Teams Door Installer Relationship Specialty Start Date End Date Physician, No Pcp PCP - General 02/23/25 documented as of this encounter
--- OUTSIDE RECORDS SUMMARY | 2025-09-27 14:01 | XMS_ITS | Encounter Summary ---
Author Organization [facility] Address [address] [place] [address] [address] [address] Care Team Providers Care Clinical Social Worker Name Role Phone Anabela Aguirre MD Primary Care Provider [phone] Maite Gorman CNP Primary Care Provider [phone] Encounter Details Date Type Department Care Team (Late st Contact Info) Description 12/16/2022 Telephone Family Medicine [address] [place] [address] Anabela Aguirre MD [address] [place] [address] Social History Tobacco Use Types Packs/Day Years Used Date Smoking Tobacco: Never Assessed Comments Unknown Sex and Gender Information Value Date Recorded Sex Assigned at Female 08/10/2022 10:16 AM EDT Legal Sex Female 10:16 AM EDT Gender Identity Female 08/10/2022 10:16 AM EDT Sexual Orientation Straight 08/10/2022 10 :16 AM EDT documented as of this encounter Plan of Treatment Not on file documented as of this encounter Visit Diagnoses Not on filedocumented in this encounter Care Teams Clinical Social Worker Relationship Specialty Start Date End Date Anabela Aguirre MD [address] [place] [address] PCP - General Family Medicine 10/11/18 06/19/24 Maite Gorman CNP [address] [place] [address] PCP - General Family Medicine 09/05/25 documented as of this encounter
--- OUTSIDE RECORDS SUMMARY | 2025-09-27 14:01 | XMS_ITS | Clinical Summary ---
Author Organization [facility] Address [address] [place] [address] Phone Care Team Providers Care Paving Rammer Name Role Phone Physician, No Pcp Primary Care Provider Unavaila ble Medications aspirin 81 mg EC tabletIndication s:Encounter [...] EVERY 6 HOURS FOR PAIN 07/15/2025 Active metoclopramide (REGLAN) 10 mg tablet Take 1 tablet (10 mg total) by mouth 3 (three) times a day before meals. 60 tablet 2 09/24/2025 Active Active Problems Problem Noted Date Diagnosed [...] in first trimester 02/28/2025 Overview (07/11/2025): 1. [facility] site: [facility] ([facility]): [address] [place] [phone] ([phone]) 2. Delivery site: [facility] 3. Mobile Mommas: 4. Dating criteria: LMP 5. Blood type: A+ 6. Genetic screening: Date: Result: Panorama: Ordered low risk male Horizon: Ordered neg Nuchal: WNL Survey: WNL MSAFP: Neg 6. GBS: Date: 7. FOB name: Keila Louisego 02-03-1999, 8. Plans A. Epidural or other [...] Encounters Date Type Department Care Team Description 09/24/2025 1:30 PM EST Visit Obstetrics and Gynecology [address] [phone] Regina Whyte, GAGANDEEP Routine follow-up (Primary Dx); Decreased milk production; Encounter for screening for maternal depression 08/15/2025 Telephone Obstetrics and Gynecology - [address] [phone] Wendy Brown RN 08/12/2025 8:16 AM EST - 08/12/2025 10:37 AM EST Hospital Encounter [address] [phone] Shahid Davidson MD Discharge Disposition: Another Health Care Institution Not Defined 08/08/2025 1:00 PM EDT Routine Obstetrics & Gynecology [address] [phone] Kat Albright CNM Encounter for supervision of normal first in third trimester (Primary Dx); 33 weeks gestation of 07/26/2025 Telephone Obstetrics & Gynecology [address] [phone] Regina Whyte CNM 07/25/2025 1:15 PM EDT Routine Obstetrics & Gynecology [address] [phone] Kat Albright CNM Encounter for supervision of normal first in third trimester (Primary Dx); Bilateral sciatica; 31 weeks gestation of 07/18/2025 Results Follow-Up [address] [phone] Latoya Ni CNM 07/17/2025 11:00 AM EDT Ancillary Procedure Maternal Medicine - [address] [phone] Vaginal bleeding in , third trimester; 30 weeks gestation of ; Obesity complicating in third trimester 07/17/2025 Telephone Obstetrics & Gynecology [address] [phone] Regina Whyte CNM 07/15/[address] [phone] Latoya Ni CNM 07/11/2025 1:00 PM EDT Routine Obstetrics & Gynecology - [address] [phone] Kat Albright CNM Encounter for [...] 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 Not on file Not on file Obstetrics History Para Term AB IAB SAB Ectopic Multiple Livin g Live Births 1 1 0 1 0 0 1 1 Date Outcome GA Total Labor Labor/2nd/3rd Weight Sex Type Anes PTL Patsy A1 A5 Name Clin 025 34w 1d 2732 g (96.4 oz) M Y Living Delivery Location:[facility] Summary Episode Dates Number of Fetuses Estimated Date of Delivery 02/28/2025 - Present (09/27/2025) 1 09/24/2025 (set by Bhavna Alvarez RN on 02/28/2025 based on Last Menstrual Period on 12/18/2024 (Within Days)) Dating Summary Based On MAXIMILIANO GA Diff Last Menstrual Period on 12/18/2024 (Within Days ) 09/24/2025 Working Ultrasound on 02/23/2025 09/27/2025 -3d GA:9w1d Alternate MAXIMILIANO Entry 09/24/2025 Same Comment:Date entered prior t o episode creation Vitals Pregravid Weight Height TWG (As of 09/27/2025) Pregrav id BMI 72.1 kg (159 lb) 1.575 m (62 ) 11.5 kg (25 lb 6.4 oz) 29.07 Date GA Fund Present FHR Mvmt BP Weight Edema Alb Glu Ket Dil/ Eff/Sta 5 33w6d Inpatient data not displayed here. See encounter summary. Notes Progress Notes - Visit - 09/24/2025 - GA:34w1d 09/24/2025 - 34w1d - Regina Whyte CNM Subjective Patient ID: Maddie Alcazar is a 25 y.o. female. S/p , 08/14 is currently She is breast feeding exclusively. Had 34wks d/t pprom Reports decrease milk supply plans on use of fenugreek and pumping q2hrs Contraception plan: Nothing [place] Depression Scale: In the Past 7 Days [...] harming myself has occurred to me.: Never [place] Depression Scale Total: 6 Chief Complaint Patient [...] for behavioral problems, hallucinations and sleep disturbance. The patient is not nervous/anxious. Objective Vitals BP: 112/60 [...] milk Desires nothing for bc F/u routinely Progress Notes - Hospital En counter - [...] is A Positive. She presented to the [facility] triage accompanied by her partner, complaining of [...] 36.1 C (97 F) Min taken time: 08/12/25 0820 Max: 36.1 C (97 F) Max taken time: 08/12/25 0820 Physical Examination: GENERAL: Examination reveals a well [...] with Dr. Carbajal- Transfer process started to [facility] Kat Albright CNM I reviewed patients record and assisted with her evaluation. I agree with the above note. Patient is being transferred to [facility]. I greatly appreciate [facility] and Dr Casey for accepting the transfer and assuming care of Ms Alcazar. --Pending work up from today, GCCT and GBS. 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 Also [...] 08/08/2025 at 1:40 PM EDT 08/08/2025 - 33w - Baron Son MA Ob f/up Progress Notes - Routine Pre tree - 07/25/2025 - GA:31w2d 07/25/2025 - 31w - Kat Albright CNM OB Visit: Vitals [...] 07/25/2025 at 1:53 PM EDT 07/25/2025 - 31wmile - Baron Son MA Ob f/up Progress Notes - Routine Pre - 07/11/2025 - GA:29w2d 07/11/2025 - 29w2d - Baron Son MA The patient acknowledges [...] pertussis vaccination: YES Denies history of Guillain [place] Syndrome.or any type of seizure disorder. YES [...] administered IM. See Imm/Inj tab 07/11/2025 - wKat Paul CNM OB Visit: Vitals BP: 121/77 (p [...] 07/11/2025 at 1:49 PM EDT 07/11/2025 - kamla - Baron Son MA Pt here for ob f/up 1hr gtt done 06/25/25: 153 3hr gtt done 07/03/25: normal EPDS: 8 Routine from 07/11/2025 in Obstetrics & Gynecology [facility] with Kat Albright CNM 07/11/2025 1311 Last Filed Value [place] Depression Scale: In the Past 7 Days [...] myself has occurred to me. Never Never [place] Depression Scale Total 8 8 Progress Notes - Routine Pre - 06/13/2025 - GA:25w2d 06/13/2025 - mile - Kat Albright CNM OB Visit: Vitals [...] 06/13/2025 at 2:42 PM EDT 06/13/2025 - pablito - Baron Son MA Ob f/up Progress Notes - Routine Pre - 05/09/2025 - GA:20w2d 05/09/2025 - 2d - Kat Albright CNM OB Visit: Vitals [...] 05/09/2025 at 11:00 AM EDT 05/09/2025 - - Baron Son MA Ob f/up Progress Notes - Routine Pre - 04/12/2025 - GA:16w3d 04/12/2025 - 163d - Riana Figueroa CNM OB Visit: Vitals [...] 04/12/2025 at 9:17 AM EDT 04/12/2025 - 16w3d - Baron Son MA Ob f/up w/ [...] Value Date RH Positive 03/02/2025 Horizon Neg [facility] low risk A: at 12w2d weeks gestation. [...] the first trimester and how to contact communications lead provider. Discussed the benefits of breast feeding [...] 03/14/2025 at 12:08 PM EDT 03/14/2025 - w - Baron Son MA Pt here for IP Needs Pap EPDS: Progress Notes - Clinical [place] pport - 02/28/2025 - GA:10w2d 02/28/2025 - w2d - Bhavna Mcnulty RN Maddie Alcazar is a 24 y.o. old female at 10w2d. This is [place]. The patient feels happy about the . [...] to the above questions, is this for buddhism reasons? N/A Do you know what your [...] of estimated date of delivery No Thalassemia (Vietnamese, Syriac, Mediterranean, or background): MCV less than 80 No Neural tube defect (Meningomyelocele, Spina bifida, or Anencephaly) No Congenital heart defect No Down syndrome No Karson-Sachs (Ashkenazi Orthodox, Cajun, Palestinian Stanly) No Ilan disease (Ashkenazi Orthodox) No Familial dysautonomia (Ashkenazi Orthodox) No Sickle cell disease or trait () No Hemophilia or other blood disorders No Muscular dystrophy No Cystic fibrosis No [place]'s chorea No Intellectual disability and/or autism Yes, [...] Alcazar has also been informed of the elementary school band director provider recommendation for first trimester nuchal lucency testing to be performed during her . Maddie Alcazar has also been made aware of the time sensitive nature for this testing to be completed. . The patient now has a gestational age of 10w2d. The patient has agreed that she does want nuchal lucency testing. Ethnicity Based Genetic Testing has been reviewed and the [facility] information sheet has been provided to the [...] Horizon 14 test and discussed meier only soman for test(s) - info given today in her after visit summary . She would like to proceed with testing. For Horizon Carrier Screening, if patient has [facility], [facility] or [facility] insurances: Not Applicable Electronically signed by: Bhavna Alvarez RN 02/28/25 3:03 PM EDT Last Filed Vital Signs Vital Sign Reading Time Taken Comments Blood Pressure 112/60 09/24/2025 1:47 PM EST Pulse 82 09/24/2025 1:47 PM EST Temperature 36.1 C (97 F) 08/12/2025 8:20 AM EST Respiratory Rate 16 09/24/2025 1:47 PM EST Oxygen Saturation 98% 08/12/2025 8:20 AM EST Inhaled Oxygen Concentration - - Weight 77.1 kg (170 lb) 09/24/2025 1:47 PM EST Height 157.5 cm (5' 2 ) 02/28/2025 2:43 PM EDT Body Mass Index 31.09 02/28/2025 2:43 PM EDT Plan of Treatment Health Maintenance Due Date Last Done Comments [...] series) 2076 HIB Vaccines Aged Out 01/13/2002, 2001, 2001 No longer [...] third trimester GTT GESTATIONAL 3 HOUR Routine 12:43 PM EDT Encounter for supervision of normal first in first trimester GTT GESTATIONAL 2 HOUR Routine 5 11:45 AM EDT Encounter for supervision of normal first in first trimester GTT GESTATIONAL 1 HOUR Routine 5 10:44 AM EDT Encounter for supervision of normal first in first trimester GTT GESTATIONAL FASTING Routine 07/03/20 25 9:46 AM EDT Encounter for supervision of normal first in first trimester GLUCOSE TOLERANCE TEST, 3H GESTATION Routine 07/03/2025 9:46 AM EDT Encounter for supervision of normal first in first trimester PAP SMEAR Routine 03/14/2025 10:48 AM EDT [...] reflex microscopic (08/12/2025 9:06 AM EST) Specific [place] Urine 1.018 1.003 - 1.030 LAB URINALYSIS - AUTOMATED METHOD 08/12/2025 9:32 AM EST [facility] pH, Urine 6.0 5.0 - 8.0 pH LAB URINALYSIS - AUTOMATED METHOD 08/12/2025 9:32 AM [facility] Leukocytes, Urine Small(A) Negative LAB URINALYSIS - AUTOMATED METHOD 08/12/2025 9:32 AM [facility] Nitrite, Urine Negative Negative LAB URINALYSIS - AUTOMATED METHOD 08/12/2025 9:32 AM [facility] Protein, Urine Trace <=Trace mg/dL LAB URINALYSIS - AUTOMATED METHOD 08/12/2025 9:32 AM [facility] Glucose, Urine Negative Negative mg/dL LAB URINALYSIS - AUTOMATED METHOD 08/12/2025 9:32 AM [facility] Ketones, Urine Negative Negative mg/dL LAB URINALYSIS - AUTOMATED METHOD 08/12/2025 9:32 AM [facility] Urobilinogen, Urine 1.0 0.2 - 1.0 mg/dL LAB URINALYSIS - AUTOMATED METHOD 08/12/2025 9:32 AM [facility] Bilirubin, Urine Negative Negative LAB URINALYSIS - AUTOMATED METHOD 08/12/2025 9:32 AM [facility] Blood, Urine Negative Negative LAB URINALYSIS - AUTOMATED METHOD 08/12/2025 9:32 AM [facility] RBC, Urine 2.0 0 - 4 /HPF LAB URINALYSIS - AUTOMATED METHOD 08/12/2025 9:32 AM [facility] WBC, Urine 4.3(H) 0 - 4 /HPF LAB URINALYSIS - AUTOMATED METHOD 08/12/2025 9:32 AM [facility] Squamous Epithelial, Urine 71(H) 0 - 60 /LPF LAB URINALYSIS - AUTOMATED METHOD 08/12/2025 9:32 AM [facility] Bacteria, Urine Negative Negative /HPF LAB URINALYSIS - AUTOMATED METHOD 08/12/2025 9:32 AM [facility] Hyaline Casts, Urine 2.0 0 - 3 /LPF LAB URINALYSIS - AUTOMATED METHOD 08/12/2025 9:32 AM [facility] Urine Urine specimen obtained by clean catch procedure / Unknown Non-blood Collection / Unknown 08/12/2025 9:06 AM EST 08/12/2025 9:20 AM EST us Shahid Davidson MD LAB URINE ORDERABLES Fi nal Result [facility] [address] [place] [address], [place] [phone] * Drug abuse screen 8a panel, urine (08/12/2025 9:06 AM EST) Amphetamine Screen, Ur Negative Negative LAB CHEMISTRY METHOD 08/12/2025 9:42 AM [facility] Comment:Certain OTC medicati ons containing ephedrine, phenylephrine, pseudoephedrine and phenylpropanolamine can cause false positive results. Barbiturate Screen, Ur Negative Negative LAB CHEMISTRY METHOD 08/12/2025 9:42 AM [facility] Benzodiazepine Screen, Ur Negative Negative LAB CHEMISTRY METHOD 08/12/2025 9:42 AM [facility] Cocaine Screen, Ur Negative Negative LAB CHEMISTRY METHOD 08/12/2025 9:42 AM [facility] Opiate Screen, Ur Negative Negative LAB CHEMISTRY METHOD 08/12/2025 9:42 AM [facility] Cannabinoid (THC) Screen, Ur Negative Negative LAB CHEMISTRY METHOD 08/12/2025 9:42 AM [facility] Comment:Specimens from patie nts taking pantoprazole sodium (Protonix) have been shown to produce false positive results. Oxycodone Screen, Ur Negative Negative LAB CHEMISTRY METHOD 08/12/2025 9:42 AM [facility] Fentanyl, Ur Negative Negative LAB CHEMISTRY METHOD 08/12/2025 9:42 AM EST [facility] Urine Urine specimen obtained by clean catch procedure / Unknown Non-blood Collection / Unknown 08/12/2025 9:06 AM EST 08/12/2025 9:19 AM EST Narrative [facility] - 08/12/2025 9:42 AM EST [...] ORDERABLES Fi nal Result Performing Organization Address City/[facility]/ZIP Co de Phone Number [facility] [address] [place] [address], [place] [phone] * Trichomonas vaginalis antigen (08/12/2025 9:06 AM EST) Trichomonas vaginalis Negative Negative 08/12/2025 9:49 AM EST [facility] Swab Vaginal structure / Unknown Non-blood Collection / Unknown 08/12/2025 9:06 AM EST 08/12/2025 9:20 AM EST Shahid Davidson MD LAB MICROBIOLOGY - GENE RAL ORDERABLES Final Result [facility] [address] [place] [address], [place] [phone] * Chlamydia trachomatis and Neisseria gonorrhoeae molecular study (08/12/2025 9:06 AM EST) Neisseria gonorrhoeae PCR Negative Negative LAB MOLECULAR DIAGNOSTICS METHOD 08/12/2025 3:01 PM EST [facility] Chlamydia trachomatis PCR Negative Negative LAB MOLECULAR DIAGNOSTICS METHOD 08/12/2025 3:01 PM EST [facility] Swab Cervix uteri structure / Unknown Non-blood Collection / Unknown 08/12/2025 9:06 AM EST 08/12/2025 9:20 AM EST us Shahid Davidson MD LAB MICROBIOLOGY - GENE RAL ORDERABLES Final Result Performing Organization Address City/[facility]/ZIP Co de Phone Number [facility] [address] [place] [address], [place] [phone] * Strep B molecular study (08/12/2025 9:06 AM EST) [facility] Grp B Strep PCR Not Detected Not Detected LAB MICROBIOLOGY METHOD 08/13/2025 8:19 AM [facility] Swab Pooled specimen from vaginal introitus and rectal swab / Unknown Non-blood Collection / Unknown 08/12/2025 9:06 AM EST 08/12/2025 9:20 AM EST us Shahid Davidson MD LAB BLOOD ORDERABLES Fi nal Result Performing Organization Address City/[facility]/ZIP Co de Phone Number [facility] [address] [place] [address], [place] [phone] * Wet prep, genital (08/12/2025 9:06 AM EST) [facility] Clue Cells, Wet Prep Negative Negative 08/12/2025 9:36 AM EST [facility] Yeast, Wet Prep Negative Negative 08/12/2025 9:36 AM EST [facility] Trichomonas, Wet Prep Indeterminate Negative 08/12/2025 9:36 AM EST [facility] Comment:Refer to Trichomonas antigen. Swab Vaginal structure / Unknown Non-blood Collection / Unknown 08/12/2025 9:06 AM EST 08/12/2025 9:20 AM EST Shahid Davidson MD LAB MICROBIOLOGY - GENE RAL ORDERABLES Final Result Performing Organization Address City/[facility]/ZIP Co de Phone Number [facility] [address] [place] [address], [place] [phone] * Urine culture (08/12/2025 9:06 AM EST) Culture, Urine No growth 08/13/2025 9:01 AM EST [facility] Urine Urine specimen obtained by clean catch procedure / Unknown Non-blood Collection / Unknown 08/12/2025 9:06 AM EST 08/12/2025 9:19 AM EST Shahid Davidson MD LAB MICROBIOLOGY - GENE RAL ORDERABLES Final Result Performing Organization Address [facility] Co de Phone Number [facility] [address] [place] [address], [place] [phone] * US OB Transvaginal (07/17/2025 11:15 AM EDT) Anatomical Region Laterality Modality Body Ultrasound 07/17/2025 9:29 AM EDT Narrative 07/18/2025 10:49 AM EDT OBSTETRICS REPORT (Signed Final 07/18/2025 10:49 am) PATIENT INFO: ID #: [id number] : [birth year] (25 yrs)(F) Name: MADDIE ALCAZAR Visit Date: 07/17/2025 09:29 am PERFORMED BY: Attending: Emily Mota MD Performed By: CHART PREP Referred By: Riana Figueroa [facility] Ref. Address: [address] [place] [address] Location: [place] [facility] ([facility]) SERVICE(S) PROVIDED: OB Complete >=14 weeks 32182 OB Transvaginal ultrasound 03005 INDICATIONS: Vaginal bleeding in , third trimester [...] 07/18/2025 10:49 am) PATIENT INFO: ID #: [id number] : [birth year] (25 yrs)(F) Name: MADDIE ALCAZAR Visit Date: 07/17/2025 09:29 am PERFORMED BY: Attending: Emily Mota MD Performed By: CHART PREP Referred By: Riana Figueroa [facility] Ref. Address: [address] [place] [address] Location: [place] [facility] ([facility]) SERVICE(S) PROVIDED: OB Complete >=14 weeks 85888 OB Transvaginal ultrasound [address] INDICATIONS: Vaginal bleeding in , third trimester [...] 07/18/2025 10:49 am) PATIENT INFO: ID #: [id number] : [birth year] (25 yrs)(F) Name: MADDIE ALCAZAR Visit Date: 07/17/2025 09:29 am PERFORMED BY: Attending: Emily Mota MD Performed By: CHART PREP Referred By: Riana Figueroa [facility] Ref. Address: [address] [place] [address] Location: [place] [facility] ([facility]) SERVICE(S) PROVIDED: OB Complete >=14 weeks 53776 OB Transvaginal ultrasound 92104 INDICATIONS: Vaginal bleeding in , third trimester [...] RLQ(cm) LUQ(cm) LLQ(cm) 5.06 3.86 1.38 3.59 LENHCO Sum(cm) %Tile Largest Pocket(cm) 13.89 45 5.06 [...] 07/18/2025 10:49 am) PATIENT INFO: ID #: [id number] : [birth year] (25 yrs)(F) Name: MADDIE ALCAZAR Visit Date: 07/17/2025 09:29 am PERFORMED BY: Attending: Emily Mota MD Performed By: CHART PREP Referred By: Riana Figueroa [facility] Ref. Address: [address] [place] [address] Location: [place] [facility] ([facility]) SERVICE(S) PROVIDED: OB Complete >=14 weeks 46431 OB Transvaginal ultrasound 48380 INDICATIONS: Vaginal bleeding in , third trimester [...] Signed Final Report 07/18/2025 10:49 am Latoya LEROY IMG OB US PROCEDURES Final Result * GTT gestational 3 hour (07/03/2025 12:43 PM EDT) Glucose, 3 HR Gestational 117 <140 mg/dL LAB CHEMISTRY METHOD 07/03/2025 3:18 PM EDT [facility] Blood Venous blood specimen / Unknown Venipuncture / Unknown 07/03/2025 12:43 PM EDT 07/03/2025 12:44 PM EDT Narrative [facility] - 07/03/2025 3:18 PM EDT Gestational 3 hour GTT Reference Range: Normal: Fasting: < 95 mg/dL 60 minute: < 180 mg/dL 120 minute: < 155 mg/dL 180 minute: < 140 mg/dL Kat LEROY LAB BLOOD ORDERABLES Final Res ult [facility] [address] [place] [address], [place] [phone] * GTT gestational 2 hour (07/03/2025 11:45 AM EDT) Glucose, 2 HR Gestational 138 <155 mg/dL LAB CHEMISTRY METHOD 07/03/2025 3:18 PM EDT [facility] Blood Venous blood specimen / Unknown Venipuncture / Unknown 07/03/2025 11:45 AM EDT 07/03/2025 11:45 AM EDT Kat LEROY LAB BLOOD ORDERABLES Final Res ult Performing Organization Address City/[facility]/ZIP Co de Phone Number [facility] [address] [place] [address], [place] [phone] * GTT gestational 1 hour (07/03/2025 10:44 AM EDT) Glucose, 1 HR Gestational 152 <180 mg/dL LAB CHEMISTRY METHOD 07/03/2025 3:19 PM EDT [facility] Blood Venous blood specimen / Unknown Venipuncture / Unknown 07/03/2025 10:44 AM EDT 07/03/2025 10:44 AM EDT us Kat Albright [facility] BLOOD ORDERABLES Final Res ult Performing Organization Address [facility] Co de Phone Number [facility] [address] [place] [address], [place] [phone] * GTT gestational fasting (07/03/2025 9:46 AM EDT) Pathologist [facility] Glucose, GTT - Fasting 73 <95 mg/dL LAB CHEMISTRY METHOD 07/03/2025 3:18 PM EDT [facility] Blood Venous blood specimen / Unknown Venipuncture / Unknown 07/03/2025 9:46 AM EDT 07/03/2025 9:46 AM EDT Kat Albright [facility] BLOOD ORDERABLES Final Res ult Performing Organization Address City/[facility]/ZIP Co de Phone Number [facility] [address] [place] [address], [place] [phone] * Pap smear (03/14/2025 10:48 AM EDT) Interpretation Negative for intraepithelial lesion or malignancy 03/20/2025 2:09 PM EDT [facility] at 1409 EDT General Categorization Negative 03/20/2025 2:09 PM EDT [facility] Other Findings Shift in anastasia suggestive of bacterial vaginosis 03/20/2025 2:09 PM EDT [facility] Specimen Adequacy Satisfactory for evaluation, endocervical/naqvi sformation zone component present 03/20/2025 2:09 PM EDT [facility] Pap Methodology Liquid Based Pap Test 03/20/2025 2:09 PM EDT [facility] Disclaimer Note: This pap test could not be imaged utilizing the [employer] Imaging System and required a manual review. The Pap test is a screening test which carries an inherent false negative rate. These test results should be correlated with the patient's clinical findings and history. This Pap test was processed using an automated screening system. Technical cytopathology services provided by [facility], at [address] [place] [id number] (CLIA # [id number]/Marine Senior MD, Bank Compliance Officer.) 03/20/2025 2:09 PM EDT [facility] Console Pap Interpretation Reported 03/20/2025 2:09 PM EDT [facility] Brushing/Spatula Cervix uteri structure / Unknown 03/14/2025 10:48 AM EDT 03/15/2025 7:46 AM EDT Riana LEROY LAB CYTOLOGY ORDERABLES Final Result [facility] [address] [place] [address], * Hepatitis C antibody (03/02/2025 11:01 AM EDT) Hepatitis C Antibody Negative Negative LAB CHEMISTRY METHOD 03/02/2025 1:46 PM EDT [facility] Blood Venous blood specimen / Unknown Venipuncture / Unknown 03/02/2025 11:01 AM EDT 03/02/2025 11:48 AM EDT Riana Figueroa [facility] BLOOD ORDERABLES Final Re sult Performing Organization Address [facility]/ZIP Co de Phone Number [facility] [address] [place] [address], [place] [phone] * HIV 1,2 antibody, p24 antigen with reflex to differentiation (03/02/2025 11:01 AM EDT) [facility] HIV Combo AB/AG Negative Negative LAB CHEMISTRY METHOD 03/02/2025 1:46 PM EDT [facility] Blood Venous blood specimen / Unknown Venipuncture / Unknown 03/02/2025 11:01 AM EDT 03/02/2025 11:48 AM EDT Narrative [facility] - 03/02/2025 1:46 PM EDT This assay is a 4th generation assay allowing for earlier detection of HIV infection by detecting the presence of the HIV-1 p24 antigen as well as the traditional antibodies to HIV type 1 (including group O) and type 2. Use of a 4th generation assay is the current CDC recommendation for HIV screening. Riana Figueroa [facility] BLOOD ORDERABLES Final Re sult Performing Organization Address [facility] de Phone Number [facility] [address] [place] [address], [place] [phone] from Last 3 Months or Most Recently Relevant to Health Maintenance Insurance MEDICAID - [place] Advance Directives * Full Code - Confirmed (Latest Code Status on File) Date Activated Date Inactivated Comments 08/12/2025 8:51 AM 08/12/2025 3:31 PM Care Teams Paving Rammer Relationship Specialty Start Date End Date Physician, No Pcp PCP - General 02/23/25
--- OUTSIDE RECORDS SUMMARY | 2025-09-27 14:01 | XMS_ITS | Encounter Summary ---
Author Organization [employer] Address [address] [place] [address] [address] [address] Care Team Providers Care Auto Heater Mechanic Name Role Phone Anabela Aguirre MD Primary Care Provider [phone] Maite Gorman CNP Primary Care Provider [phone] Reason for Visit * Reason Onset Date Comments Appointment Request 11/26/2023 Encounter Details Date Type Department Care Team ([facility] st Contact Info) Description 11/26/2023 Telephone [facility] [address] [place], [place] [phone] Anabela Aguirre MD [address] [place] [address] Appointment Request Social History Tobacco Use Types [...] on filedocumented in this encounter Care Teams Auto Heater Mechanic Relationship Specialty Start Date End Date Anabela Aguirre MD [address] [place] [address] PCP - General Family Medicine 10/11/18 06/19/24 Maite Gorman CNP [address] [place] [address] PCP - General Family Medicine 09/05/25 documented as of this encounter
--- OUTSIDE RECORDS SUMMARY | 2025-09-27 14:01 | XMS_ITS | Clinical Summary ---
Author Organization [employer] Address [address] [facility] [address] [place] [address] Care Team Providers Care Emergency Management System Director Name Role Phone Maite Gorman ANGIE Primary Care Provider [phone] Allergies No known active allergies Medications acetaminophen (Tylenol) 500 MG tablet TAKE 2 TABLETS BY MOUTH EVERY 6 HOURS FOR PAIN 07/15/2025 Active aspirin 81 MG EC tablet Take 81 mg by mouth Once per day. 02/28/2025 Active docusate sodium (Colace) 100 MG capsule Take 100 mg by mouth. 08/16/2025 Active ergocalciferol (Vitamin D-2) 1.25 MG (21513 UT) capsule take 1 capsule by oral route every week x 15 weeks 10/08/2021 Active Ferrous Sulfate (IRON PO) Take 1 tablet by mouth Once per day. 05/31/2025 05/31/20 26 Active ibuprofen 800 MG tablet Take 800 mg by mouth. 11/01/2020 11/11/19 26 Active multivitamin () 27-0.8 MG tablet Take 1 tablet by mouth Once per day. 05/31/2025 Active ibuprofen 600 MG tabletIndicatio ns:Breast pain Take 1 tablet (600 mg) by mouth every 8 (eight) hours if needed for mild pain for up to 10 days. 30 tablet 09/05/2025 09/15/20 25 doxycycline (Vibra-Tabs) 100 MG tablet Take 1 tablet (100 mg) by mouth 2 times daily for 7 days. Take with a full glass of water and do not lie down for at least 30 minutes after. 14 tablet 09/10/2025 09/17/20 25 Active Problems Problem Noted Date Diagnosed Date [...] trimester 02/28/2025 Overview (09/03/2025): 1. [facility] site: [facility] ([facility]): [address] [place] [address] ([phone]) 2. Delivery site: [facility] 3. Mobile Mommas: 4. Dating criteria: LMP 5. Blood type: A+ 6. Genetic screening: Date: Result: Panorama: Ordered low risk male Horizon: Ordered neg Nuchal: WNL Survey: WNL MSAFP: Neg 6. GBS: Date: 7. FOB name: Keila CHRISTIAN 02-03-1999, 8. Plans A. Epidural or other pain management - B. Labor support identified - C. Tdap - Date: 07/11 Flu - Date: D. Breast or Bottle feed: E. Baby's name - F. Circumcision - 9. Hospital Course: Acne 01/17/2013 Encounters Date Type Department Care Team Description 09/10/2025 2:00 PM EST Office Visit [address] [address] Name, MD Daniel Abscess of axilla, left (Primary Dx) 09/10/2025 Travel 09/10/[address] [address] Maite Gorman CNP Nurse Triage 09/05/2025 9:00 AM EST Office Visit [facility] [address] [place] [address] Maite Gorman CNP Encounter to establish care with new provider (Primary Dx); Class 1 obesity; Breast pain; Encounter for allergy testing 09/05/2025 Travel 09/03/2025 Telephone [facility] [address] [place] [address] Venita Beck MA chart prep 08/28/2025 Patient Outreach [address] [address] Maite Gorman CNP Pre-visit Planning (SDOH Screening negative and Tobacco screening negative) 07/31/2025 Population Health Risk Score [facility] Department [address] [phone] Provider, Population Health Generic 07/23/2025 Telephone [facility] [address] [place], [place] [phone] Suha Bello MD 07/19/2025 Telephone [facility] [address] [place] [address] Phong Jimenez MD 07/17/2025 Telephone [facility] [address] [place] [address] Phong Jimenez MD [facility] - New Patient [...] 09/10/2025 2:30 PM EST Plan of Treatment Health Maintenance Due Date Last Done Comments Hepatitis A Vaccines (2 of 2 - 2-dose series) 07/31/2015 01/29/2015 Family Planning (PISQ) 2016 COVID-19 Vaccine ( season) 2025 Influenza Vaccine (#1) 2025 11/14/2012 SDOH Screening 08/28/2026 08/28/2025 Alcohol/Substance Use Screening 09/05/2026 09/05/2025 Depression Screening 09/05/2026 09/05/2025, 09/05/20 Disability Screening 09/05/2026 09/05/2025 Tobacco Screening 09/10/2026 [...] Blood Count 13.1(H) 4.8 - 10.8 X10*3/uL [facility] Red Blood Count 4.74 4.20 - 5.50 X10*6/uL [facility] Hemoglobin 15.1 12.0 - 16.0 g/dl [facility] Hematocrit 43.6 37.0 - 47.0 % [facility] Mean Corpuscular Volume 92.0 80.0 - 98.0 fL [facility] Mean Corpuscular Hemoglobin 31.9 27.0 - 33.0 pg [facility] Mean Corpuscular HGB Conc 34.6 31.0 - 35.0 g/dl [facility] Red Cell Distribution Width 11.9 11.0 - 16.0 % [facility] Platelet Count 297 160 - 400 X10*3/uL [facility] Mean Platelet Volume 10.4 9.4 - 12.3 fL [facility] Neutrophils Percent Auto 64.4 45 - 73 % [facility] Imm Gran Pct Auto 0.4 0.0 - 0.4 % [facility] Lymphocytes Percent Auto 26.8 20 - 40 % [facility] Monocytes Percent Auto 5.6 2 - 11 % [facility] Eosinophils Percent Auto 2.1 0 - 4 % [facility] Basophils Percent Auto 0.7 0 - 2 % [facility] NRBC Pct Auto 0.0 0.0 - 0.2 /100WBC [facility] Neutrophils Absolute Auto 8.4(H) 2.0 - 8.3 x10*3/uL [facility] Imm Gran Abs Auto 0.05(H) 0.00 - 0.03 X10*3/uL [facility] Lymphocytes Absolute Auto 3.5 1.2 - 4.9 X10*3/uL [facility] Monocytes Absolute Auto 0.7 0.1 - 1.2 X10*3/uL [facility] Eosinophils Absolute Auto 0.3 0.0 - 0.4 X10*3/uL [facility] Basophils Absolute Auto 0.1 0.0 - 0.2 X10*3/uL [facility] NRBC Abs Auto 0.000 0.0 - 0.012 X10*3/uL [facility] Blood Venous blood specimen / Unknown 09/05/2025 10:56 AM EST 09/05/2025 2:15 PM EST [facility] BLOOD ORDERABLES Geno l Result [facility] [address] [place] [phone] * Hemoglobin A1c (09/05/2025 10:56 AM EST) Hemoglobin A1c 5.2 <6.0 % [facility] Comment:Hemoglobin A1C Refer ence Range Adults: 4.8 - 6.0 % Non diabetic: < 6.0 % Goal: < 7.0 %Additional Action Suggested: > 8.0 %Note: Hemoglobin A1c results are invalid for patients with abnormal amounts of HbF. Blood transfusions may impact the HbA1c concentration in the patient sample. Estimated Average Glucose 103 mg/dL [facility] Comment:eAG = Estimated ave rage glucose which is %A1C expressed asaverage glucose, using the formula of the [id number]-[id number] Glucose study (ADAG), Diabetes Care, Vol.31,#8,May. 2007 Blood Venous blood specimen / Unknown 09/05/2025 10:56 AM EST 09/05/2025 2:15 PM EST [facility] BLOOD ORDERABLES Geno l Result Performing Organization Address [facility] de Phone Number [facility] [address] [place] [phone] * (ABNORMAL) Hepatic Function Panel (09/05/2025 10:56 AM EST) Pathologist [facility] Bilirubin, Total 0.6 0.0 - 1.0 mg/dL [facility] Bilirubin, Direct 0.2 0.0 - 0.5 mg/dL [facility] Aspartate Amino Transferase 21 5 - 31 U/L [facility] Alanine Aminotransferase 19 0 - 31 U/L [facility] Total Protein 7.3 6.5 - 8.0 g/dL [facility] Albumin Level 4.3 3.5 - 5.0 g/dL [facility] Alkaline Phosphatase 127(H) 39 - 117 U/L [facility] Blood Venous blood specimen / Unknown 09/05/2025 10:56 AM EST 09/05/2025 2:16 PM EST [facility] BLOOD ORDERABLES Geno l Result Performing Organization Address [facility] Co de Phone Number [facility] [address] [place] [phone] * (ABNORMAL) Basic Metabolic Panel (09/05/2025 10:56 AM EST) Pathologist [facility] Sodium 143 135 - 145 mmol/L [facility] Potassium 4.0 3.3 - 5.1 mmol/L [facility] Chloride 112(H) 96 - 108 mmol/L [facility] Carbon Dioxide 24 22 - 29 mmol/L [facility] Anion Gap 11(L) 12 - 20 [facility] Urea Nitrogen (BUN) 10 9 - 16 mg/dL [facility] Creatinine, Serum 0.65 0.5 - 1.4 mg/dL [facility] Estimated Glomerular Filt Rate >60 [facility] Comment:Chronic Kidney Disea se: Estimated GFR < 60 mL/min/1.18k5Cgjoux Kidney Disease: Estimated GFR < 15 mL/min/1.73m2 Glucose 76 60 - 115 mg/dL [facility] Calcium 8.9 8.4 - 10.2 mg/dL [facility] Blood Venous blood specimen / Unknown 09/05/2025 10:56 AM EST 09/05/2025 2:16 PM EST [facility] BLOOD ORDERABLES Geno l Result [facility] [address] [place] [phone] * (ABNORMAL) LIPID PANEL, STANDARD (03/26/2022 9:58 AM EDT) Chol/HDLC Ratio 3.8 <5.0 (calc) [facility] Cholesterol, Total 148 <200 mg/dL [facility] HDL Cholesterol 39(L) > OR = 50 mg/dL [facility] LDL Cholesterol 84 mg/dL (calc) [facility] Comment: Reference range: <100 Desirable range <100 mg/dL for primary prevention; <70 mg/dL for patients with CHD or diabetic patients with > or = 2 CHD risk factors. LDL-C is now calculated using the Jose R-Fahad calculation, which is a validated novel method providing better accuracy than the Friedewald equation in the estimation of LDL-C. Jose R ROSARIO et al. RAJEEV. 2013;310(19): 7872-0276 (http://education.[employer].Bookigee/faq/KMT189) Non-HDL Cholesterol 109 <130 mg/dL (calc) [facility] Comment: For patients with diabetes plus 1 major ASCVD risk factor, treating to a non-HDL-C goal of <100 mg/dL (LDL-C of <70 mg/dL) is considered a therapeutic option. Triglycerides 145 <150 mg/dL [facility] 03/26/2022 9:58 AM EDT Anabela Aguirre MD LAB BLOOD ORDERABLES Final Re sult Performing Organization Address [facility] Phone Number [facility] [address] * HEPATITIS C ANTIBODY RFLX (11/24/2019 11:05 AM EST) HEPATITIS C ANTIBODY NONREACTIVE NONREACTIVE [facility] Comment: Antibodies to HCV not detected; does not exclude early acute HCV infection. 11/24/2019 11:0 5 AM EST us Anabela Aguirre MD HISTORICAL/NON ORDERABLE LABS Final Result Performing Organization Address [facility] [address] * HIV AB/AG (11/24/2019 11:05 AM [...] of detection of this assay. The [employer] Machine Operator HIV Ag/Ab Combo assay result and supplemental assay results should be interpreted in conjunction with the patient's clinical presentation, history and other laboratory results. If the results are inconsistent with clinical evidence, additional testing is suggested to confirm the result. 11/24/2019 11:0 5 AM EST us Anabela Aguirre MD HISTORICAL/NON ORDERABLE LABS Final Result Performing Organization Address [facility] Phone Number [facility] [address] from Last 3 Months or Most Recently Relevant to Health Maintenance Insurance [facility] Care Teams Emergency Management System Director Relationship Specialty Start Date End Date Maite Gorman CNP [address] [place] [phone] PCP - General Family Medicine 09/05/25
--- NOTE | 2025-10-02 12:22 | P.CONAN_ITS ---
Documented by User: Kalyn Robbins NP 10/02/25 12:22 HPI - Anesthesia Eval Consult details Narrative: 25yo F for Left Excision Axillary Cyst X 2 PMFSH Active Problems Active Problems: All Active Problems Abscess of axillary region (Acute) Past Medical History Medical History Breast feeding status of mother No pertinent past medical history Family History Family History Paternal Grandmother Diabetes Father Diabetes Surgical History Surgical History Status post breast reduction Social History Social History Patient Tobacco Use Status: Never used Tobacco Have you been hit, kicked, punched, or otherwise hurt by someone within the past year? If so, by whom?: No Are you DNR?: No Advance Directives: No Advance Directives Information Provided: Yes Patient : No Meds Allergies Allergy/AdvReac Type Severity Reaction Status Date / Time No Known Allergies Allergy Verified 09/20/25 13:18 Home Medications ?Medication ?Instructions ?Recorded ?Confirmed ?Last Taken ?Type No Known Home Meds 10/08/25 10/08/25 Un known History Exam Pertinent Lab Results Pertinent Lab Results: Laboratory Tests 09/05/25 10:56 WBC 13.1 H Hgb 15.1 Hct 43.6 Plt Count 297 Sodium 143 Potassium 4.0 Chloride 112 H Carbon Dioxide 24 BUN 10 Creatinine 0.65 Assessment and Plan Assessment Anesthesia Assessment: Chart Reviewed Documented by User: Andry London MD 10/08/25 08:46 PMFSH Past Medical History Medical History Breast feeding status of mother No pertinent past medical history Family History Family History Paternal Grandmother Diabetes Father Diabetes Family history of problems with anesthesia: No Surgical History Surgical History Status post breast reduction History of Problems with Anesthesia: No Social History Social History Patient Tobacco Use Status: Never used Tobacco Have you been hit, kicked, punched, or otherwise hurt by someone within the past year? If so, by whom?: No Are you DNR?: No Advance Directives: No Advance Directives Information Provided: Yes Patient : No Meds Allergies Allergy/AdvReac Type Severity Reaction Status Date / Time No Known Allergies Allergy Verified 09/20/25 13:18 Home Medications ?Medication ?Instructions ?Recorded ?Confirmed ?Last Taken ?Type No Known Home Meds 10/08/25 10/08/25 Un known History Exam Exam Date and Time: 10/08/25 Airway Mallampati Class: I TM Dist: >3cm Neck ROM: Full Heart: rrr Lungs: ctab vesicular Assessment and Plan Assessment Anesthesia Assessment: Anesthesia Plan Discussed Final Anesthetic Review Family History of Problems with Anesthesia: No History of Problems with Anesthesia: No NPO: Yes ASA Class: I Final Preanesthetic Review: No Changes in Pt Med Stat, Meds/Allgs Chart Reviewed, Consent Obtained/Reviewed and Anes Risks/Benef Reviewed Patient Risk: Low Procedure Risk: Low Anesthetic Plan Anesthetic Plan: MAC: Disposition: Standard PACU
[2025-10-03 08:18] VITALS: BMI 31.5
[2025-10-08 08:07] VITALS: BP 104/71; PULSE 91; RESP 18; TEMP 36.9; O2SAT 97; BMI 32.0
[2025-10-08 08:20] LABS: UPreg QC Valid YES
[2025-10-08] MEDS: Lactated Ringers 1,000 ML 100 ML IVCONT (08:28)
[2025-10-08 10:44] VITALS: BP 101/55; PULSE 92; RESP 14; TEMP 36.3; O2SAT 97
[2025-10-08 10:49] VITALS: BP 111/67; PULSE 93; RESP 12; O2SAT 96
--- NOTE | 2025-10-08 10:49 | P.OP_ITS ---
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 Her arms and legs occasionally appropriately. Conscious sedation was begun in her left axilla was prepped and draped in the standard sterile fashion. After this approximately 30 cc of 0.25% Marcaine with epinephrine were infused in the skin and soft tissue around 2 discrete masses that had been previously marked as the problematic areas. After this over each area stab incision was created following Sonu's lines of the skin with a 15. Blade. The 1st incision was approximately 4 cm in length and the 2nd incision was approximately 3 cm in length. At each site dissection was taken down until cystic scarred subdermal fatty tissue was encountered. This was all excised with combination of blunt and sharp dissection. Hemostasis was achieved with cautery. All of the abnormal subdermal tissue was carefully removed. Both wounds were copiously irrigated with saline and evacuated. The deep dermals in the resultant soft tissues face were then closed with buried 0 Polysorb on a UR 6 needle. The skin incisions were closed with 4-0 Polysorb in a running subcuticular fashion. Steri-Strips and sterile occlusive dressings were applied. The patient tolerated the procedure well, was recovered from MAC and taken to the PACU in good condition should be noted that the sponge instrument needle counts were correct in the case. I discussed the details case with the patient afterwards.
[2025-10-08 10:59] VITALS: BP 117/75; PULSE 85; RESP 16; O2SAT 98
[2025-10-08 11:03] VITALS: BP 122/74; PULSE 70; RESP 14; TEMP 36.1; O2SAT 99
== END 2025-10-08 11:52 | disposition home or self-care (01) ==
PROVIDERS: Nurse Practitioner; Visit Provider Surgery
PROC: (CPT 11406; principal; 2025-10-08 09:30)
DX: L02.412 Cutaneous abscess of left axilla (principal); L72.9 Follicular cyst of the skin and subcutaneous tissue, unspecified; M79.89 Other specified soft tissue disorders
CPT/HCPCS: 11406; 81025; 88304; J0131; J0665; J0690; J1885; J2003; J2250; J2371; J2405; J2704; J3010

== ENCOUNTER → 2025-10-08 08:04 | Outpatient (BNV) | payer MEDICAID, SELFPAY | PROVIDERS: Visit Provider Surgery | DX: L02.412 Cutaneous abscess of left axilla (principal) | CPT/HCPCS: 11403; 11404 ==